=== PATIENT | male | born 1970 | race Caucasian/White ===

== ENCOUNTER 2018-01-23 04:19 | Emergency (ER) | payer SELFPAY ==
[~2018-01-23] VITALS: Ht 167.6 cm; Wt 113.4 kg
--- NOTE | 2018-01-23 04:19 | NUR ---
Patient BIBA BLS, transferred to bed 6. RN evaluating patient at bedside.
[2018-01-23 04:32] VITALS: BP 169/130
[2018-01-23] MEDS ORDERED: LORazepam 1 MG TAB PO ONE (04:35)
--- NOTE | 2018-01-23 04:40 | NUR ---
47Y/M BIBA C/O EPIGASTRIC PAIN AND SOB UPON AWAKENING. PT STATES HE DID EAT "SPICY FOOD" BEFORE BED. PT HAS BURNING EPIGASTRIC PAIN, NON RADIATING, 8/10. PT IS ANXIOUS ON ARRIVAL AND HX OF ANXIETY. RR ARE EVEN, UNLABORED, BL BS CLEAR THROUGHOUT, TACHYPNEA. PMH ANXIETY NKDA
--- NOTE | 2018-01-23 05:09 | NUR ---
XRAY AT BEDSIDE.
[2018-01-23 05:15] LABS: BARBITURATE, URINE NEG. ng/ml (NEG <=200); BENZODIAZEPINE, URINE NEG. ng/mL (NEG <=200); CANNABINOID, URINE NEG. ng/mL (NEG <=50); COCAINE, URINE NEG. ng/mL (NEG <=300); OPIATE, URINE NEG. ng/mL (NEG <=2000); PHENCYCLIDINE SCREEN,URINE NEG. ng/mL (NEG <=25)
[2018-01-23] MEDS ORDERED: ASPIRIN 325 MG TAB PO ONE (05:30)
[2018-01-23] MEDS ORDERED: NITROGLYCERIN 0.4 MG TAB SL ONE (05:30)
--- NOTE | 2018-01-23 05:48 | NUR ---
RT AT BEDSIDE FOR ABG.
[2018-01-23 05:59] LABS: BASOPHILS % (AUTO) 0.7 % (0.0-2.0); EOSINOPHILS # (AUTO) 0.1 K/uL (0-0.4); HEMATOCRIT 45.9 % (36-52); HEMOGLOBIN 16.6 g/dL (12.0-18.0); LYMPHOCYTES # (AUTO) 1.5 K/uL (2.0-11.5); LYMPHOCYTES % (AUTO) 29.6 % (20.5-51.1); MEAN CORPUSCULAR HEMOGLOBIN 32 pg (27-31); MEAN CORPUSCULAR HGB CONC 36 g/dL (33-37); MEAN CORPUSCULAR VOLUME 87.8 fL (80-94); MONOCYTES # (AUTO) 0.2 K/uL (0.8-1.0); MONOCYTES % (AUTO) 4.1 % (1.7-9.3); NEUTROPHILS # (AUTO) 3.3 K/uL (1.8-7.7); NEUTROPHILS % (AUTO) 64.6 % (42.2-75.2); PLATELET COUNT (AUTO) 201 K/uL (140-450); RED BLOOD CELL COUNT(AUTO) 5.22 MIL/uL (4.20-6.10); RED CELL DISTRIBUTION WIDTH 12.6 % (11.6-13.7); WHITE BLOOD COUNT (AUTO) 5.1 K/uL (4.8-10.8)
--- NOTE | 2018-01-23 06:30 | NUR ---
Dr. Aponte re-evaluating patient at bedside.
[2018-01-23] MEDS ORDERED: LORazepam 2 MG/ML VIAL IVP ONE (06:35)
[2018-01-23 06:41] LABS: ANION GAP 19.9 (8-16); CARBON DIOXIDE 22.1 mmol/L (21-32); CREATININE 1.5 mg/dL (0.7-1.3)
[2018-01-23 06:47] LABS: ALBUMIN 3.5 g/dL (3.4-5.0); TOTAL BILIRUBIN 0.6 mg/dL (0.0-1.0)
--- NOTE | 2018-01-23 06:50 | NUR ---
PT POSITIONED FOR COMFORT, STATES HE WANTS TO SLEEP, WILL CONTINUE TO MONITOR.
--- NOTE | 2018-01-23 07:10 | NUR ---
MINISTERIO GATES AWARE OF PT V.S, OK TO D/C.
--- NOTE | 2018-01-23 07:14 | NUR ---
Patient discharged with v/s stable. Written and verbal after care instructions given and explained. Patient verbalized understanding. Ambulatory with steady gait. All questions addressed prior to discharge. Advised to follow up with PMD.
[2018-01-23 07:15] VITALS: BP 132/88
== END 2018-01-23 07:14 | disposition home or self-care (01) ==
LOC: MED 04:19
DX: R06.00 Dyspnea, unspecified (principal); I10 Essential (primary) hypertension
CPT/HCPCS: 36415; 36600; 71045; 80053; 80305; 82550; 82553; 82803; 83690; 84484; 85025; 85379; 93005; 96374; 99285; J2060; Q0092

== ENCOUNTER 2018-05-08 20:59 | Inpatient (IN) | payer SELFPAY ==
[~2018-05-08] VITALS: Ht 170.2 cm; Wt 97.5 kg
[2018-05-08 21:04] VITALS: BP 174/125
[2018-05-08 21:51] LABS: BASOPHILS # (AUTO) 0.1 K/uL (0.00-0.22); BASOPHILS % (AUTO) 0.7 % (0.0-2.0); EOSINOPHILS # (AUTO) 0.1 K/uL (0-0.4); HEMATOCRIT 47.4 % (36-52); HEMOGLOBIN 16.2 g/dL (12.0-18.0); LYMPHOCYTES # (AUTO) 2.2 K/uL (2.0-11.5); LYMPHOCYTES % (AUTO) 30.1 % (20.5-51.1); MEAN CORPUSCULAR HEMOGLOBIN 31 pg (27-31); MEAN CORPUSCULAR HGB CONC 34 g/dL (33-37); MEAN CORPUSCULAR VOLUME 90.8 fL (80-94); MONOCYTES # (AUTO) 0.4 K/uL (0.8-1.0); MONOCYTES % (AUTO) 5.3 % (1.7-9.3); NEUTROPHILS # (AUTO) 4.7 K/uL (1.8-7.7); NEUTROPHILS % (AUTO) 62.9 % (42.2-75.2); PLATELET COUNT (AUTO) 199 K/uL (140-450); RED BLOOD CELL COUNT(AUTO) 5.22 MIL/uL (4.20-6.10); RED CELL DISTRIBUTION WIDTH 12.8 % (11.6-13.7); WHITE BLOOD COUNT (AUTO) 7.5 K/uL (4.8-10.8)
[2018-05-08 22:06] LABS: ANION GAP 11.7 (8-16); CARBON DIOXIDE 26.3 mmol/L (21-32); CREATININE 1.6 mg/dL (0.7-1.3); PROTHROMBIN TIME 9.3 secs (10.8-13.4)
[2018-05-08 22:11] LABS: ALBUMIN 3.5 g/dL (3.4-5.0); TOTAL BILIRUBIN 0.4 mg/dL (0.0-1.0)
--- NOTE | 2018-05-08 22:20 | NUR ---
PATIENT PRESENTS TO ED WITH HIGH BLOOD PRESSURE . PT STATES HE STARTING HAVING MILD CHEST TIGHTNESS YESTERDAY . DENIES N/V/D; SKIN IS PINK/WARM/DRY; AAOX4 WITH EVEN AND STEADY GAIT; LUNGS CLEAR BL; HR EVEN AND REGULAR; PT DENIES ANY FEVER, CP, SOB, OR COUGH AT THIS TIME; PATIENT STATES PAIN OF 5/10 AT THIS TIME; VSS; PATIENT POSITIONED FOR COMFORT; HOB ELEVATED; BEDRAILS UP X2; BED DOWN. ER MD MADE AWARE OF PT STATUS.
[2018-05-09] MEDS ORDERED: NITROGLYCERIN 0.4 MG TAB SL ONE (00:50)
[2018-05-09] MEDS ORDERED: LABETALOL 100 MG/20 ML VIAL IV ONE (00:50)
[2018-05-09] MEDS ORDERED: ASPIRIN 325 MG TAB PO ONE (00:50)
--- NOTE | 2018-05-09 01:30 | NUR ---
ASSUMED CARE OF PT AT THIS TIME. PT RESTING COMFORTABLY. NAD. VSS. PT AWAITS ADMISSION. WILL CONTINUE TO MONITOR.
[2018-05-09] MEDS ORDERED: NACL 0.9% 1,000 ML IV SCH (02:02)
[2018-05-09] MEDS ORDERED: LORazepam 2 MG/ML VIAL IM/IVP PRN (02:05)
[2018-05-09] MEDS ORDERED: ZOLPIDEM 5 MG TAB PO PRN (02:05)
[2018-05-09] MEDS ORDERED: ONDANSETRON 4 MG/2 ML VIAL IM/IVP PRN (02:05)
[2018-05-09] MEDS ORDERED: NITROGLYCERIN 2% 1 GM PKT TP PRN (02:05)
[2018-05-09] MEDS ORDERED: MORPHINE SULFATE 2 MG/ML SYR IVP PRN (02:05)
[2018-05-09] MEDS ORDERED: DOCUSATE SODIUM 100 MG GELCAP PO PRN (02:05)
[2018-05-09] MEDS ORDERED: HYDROcodone/APAP 5/325 MG 1 TAB TAB PO PRN (02:05)
[2018-05-09] MEDS ORDERED: ACETAMINOPHEN 325 MG TAB PO PRN (02:05)
--- NOTE | 2018-05-09 02:25 | NUR ---
Patient will be admitted to care of [facility]. Admitted to TELE. Will go to room 111A. Belongings list completed. Report to HERSON WINN.
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
[2018-05-09] MEDS ORDERED: INSULIN LISPRO SLIDING SCALE 100 UNITS/ML VIAL SUBQ PRN ×3 (02:50→02:57)
[2018-05-09] MEDS ORDERED: DEXTROSE 50% 50 ML SYR IVP PRN ×2 (02:50)
[2018-05-09 03:18] VITALS: BP 124/86
[2018-05-09 05:08] LABS: AMYLASE 53 U/L (25-115); CHOL/HDL RATIO 7.1 (1-4.5); HDL CHOLESTEROL 32 mg/dL (40-60); LIPASE 104 U/L (73-393); MAGNESIUM 1.6 mg/dL (1.8-2.4); PHOSPHORUS 2.9 mg/dL (2.5-4.9); THYROID STIMULATING HORMONE 1.81 uIU/mL (0.34-3.74); TRIGLYCERIDES 902 mg/dL (30-150)
--- NOTE | 2018-05-09 05:52 | NUR ---
NO COMPLAINTS DONE AT THIS TIME. SLEEPING WELL AFTER AMBIEN P.O. GIVEN REQUESTED. PT. ABLE TO USE CALL LIGHT FOR HELP. BLOOD SUGAR AT THIS TIME 153 MG/DL PER FINGERSTICK. SINUS RHYTHM IN TELEMETRY MONITORING.
[2018-05-09] MEDS ORDERED: MAGNESIUM OXIDE 400 MG TAB PO SCH (07:00)
--- NOTE | 2018-05-09 07:25 | NUR ---
RECEIVED PT REPORT COFFEE WEIGHER RN. PT IS AAOX4. NO S/S OF ACUTE DISTRESS NOTED. C/O CHEST PAIN 4/10. ON TELE MONITOR, SR. IVF SITE NOTED TO RFA, 20 G, INFUSING NS AT 120ML/HR, ASYMPTOMATIC. RIGHT EYE BLINDNESS. SKIN INTACT. NO EDEMA. BED IN LOWEST POSITION, CALL LIGHT WITHIN REACH.
--- NOTE | 2018-05-09 07:26 | NUR ---
ENDORSED TO THE NEXT RN FOR CONTINUITY OF CARE AWAKE AND ALERT. NO COMPLAINTS DONE.
[2018-05-09] MEDS ORDERED: BLOOD GLUCOSE MONITORING 1 DEV DEV FS SCH ×2 (07:30)
[2018-05-09 08:00] VITALS: BP 135/101
--- NOTE | 2018-05-09 08:35 | NUR ---
PATIENT HAS BEEN SCREENED AND CATEGORIZED MODERATE NUTRITION RISK. PATIENT WILL BE SEEN WITHIN 3-5 DAYS OF ADMISSION. 05/11/18 05/13/[address]
[2018-05-09] MEDS ORDERED: METOPROLOL 50 MG TAB PO SCH (09:00)
[2018-05-09] MEDS ORDERED: ASPIRIN 81 MG TAB.CHEW PO SCH (09:00)
[2018-05-09] MEDS ORDERED: METOPROLOL 25 MG TAB PO SCH (09:00)
[2018-05-09] MEDS ORDERED: LISINOPRIL 10 MG TAB PO SCH (09:00)
[2018-05-09] MEDS ORDERED: LISINOPRIL 5 MG TAB PO SCH (09:00)
[2018-05-09] MEDS ORDERED: IBUP-2213 PO (09:13)
[2018-05-09] MEDS ORDERED: LISI-420 PO (09:13)
[2018-05-09 09:20] LABS: PROTHROMBIN TIME 9.8 secs (10.8-13.4)
--- NOTE | 2018-05-09 10:20 | NUR ---
PT DISCHARGE PER MD ORDER. DISCHARGE INSTRUCTIONS AND MED TEACHING GIVEN. IV CATH DC'D, TIP INTACT, PRESSURE APPLIED. TELE REMOVED. PT IS IN STABLE CONDITION. PT LEFT WITH ALL HIS BELONGINGS. WALK WITH PT TO SINGH. Addendum: 05/09/18 at 1034 by Jason Phipps RN PT VERBALIZED UNDERSTANDING TO DISHCHARGE INSTRUCTIONS AND MED TEACHING. MADE PT AWARE OF SCHEDULED APPT WITH DR BARRETT.
[2018-05-09] MEDS ORDERED: SIMVASTATIN 40 MG TAB PO SCH (21:00)
[2018-05-10 08:22] LABS: T4 (THYROXINE) 5.9 ug/dL (4.5-12.0)
== END 2018-05-09 10:20 | disposition home or self-care (01) | DRG 205 ==
LOC: MED 20:59 → MTU 05-09 02:07
PROVIDERS: ADMIT General Practice; ATTEND General Practice
DX: M94.0 Chondrocostal junction syndrome [Tietze] (principal); N17.0 Acute kidney failure with tubular necrosis; I24.9 Acute ischemic heart disease, unspecified; K21.9 Gastro-esophageal reflux disease without esophagitis; I10 Essential (primary) hypertension; Z79.899 Other long term (current) drug therapy; Z79.82 Long term (current) use of aspirin; E78.5 Hyperlipidemia, unspecified; E66.01 Morbid (severe) obesity due to excess calories; Z68.33 Body mass index [BMI] 33.0-33.9, adult; E86.0 Dehydration; I16.0 Hypertensive urgency; Z91.19 Patient's noncompliance with other medical treatment and regimen
CPT/HCPCS: 36415; 71045; 80053; 81025; 82150; 82550; 82948; 83036; 83690; 83735; 83880; 84100; 84134; 84436; 84439; 84443; 84484; 85025; 85379; 85610; 85730; 87081; 93005; 96365; 99285; C1758; G0482; J1815; J3490; J7030

== ENCOUNTER 2018-06-14 20:44 | Inpatient (IN) | payer MEDICAID ==
[~2018-06-14] VITALS: Ht 170.2 cm; Wt 97.5 kg
[~2018-06-14 20:44] MED LIST: IBUP-2213 PO; LISI-420 PO
[2018-06-14 21:00] VITALS: BP 178/126
--- NOTE | 2018-06-14 21:11 | NUR ---
PT AMBULATED TO ED BED 4, MADE AWARE OF PT STATUS
[2018-06-14] MEDS ORDERED: ASPIRIN 325 MG TAB PO ONE (21:40)
[2018-06-14] MEDS ORDERED: NITROGLYCERIN 0.4 MG TAB SL ONE (21:40)
--- NOTE | 2018-06-14 22:00 | NUR ---
47 yo male presents to ed for c/o chest pain, pt denies pmh, denies allergies. pt describes pain as achiness/pressure that radiates to l arm. pt aaox4 ambulating to gurney and restroom. NSR on monitor, S1 s2 heard, no edema present. ASA 325 and nitro SL given. +2 pulses radial/pedal present. abdomen soft non distended. pt voiding; clear yellow urine noted. skin intact. R eye blind from previous surgery. will update ER MD, will continue to observe.
[2018-06-14 22:01] LABS: BASOPHILS % (AUTO) 0.5 % (0.0-2.0); EOSINOPHILS # (AUTO) 0.1 K/uL (0-0.4); EOSINOPHILS % (AUTO) 0.8 % (0.0-4.0); HEMATOCRIT 46.5 % (36-52); HEMOGLOBIN 15.9 g/dL (12.0-18.0); LYMPHOCYTES # (AUTO) 1.6 K/uL (2.0-11.5); LYMPHOCYTES % (AUTO) 22.6 % (20.5-51.1); MEAN CORPUSCULAR HEMOGLOBIN 31 pg (27-31); MEAN CORPUSCULAR HGB CONC 34 g/dL (33-37); MEAN CORPUSCULAR VOLUME 89.5 fL (80-94); MONOCYTES # (AUTO) 0.3 K/uL (0.8-1.0); MONOCYTES % (AUTO) 4.7 % (1.7-9.3); NEUTROPHILS # (AUTO) 5.2 K/uL (1.8-7.7); NEUTROPHILS % (AUTO) 71.4 % (42.2-75.2); PLATELET COUNT (AUTO) 202 K/uL (140-450); RED BLOOD CELL COUNT(AUTO) 5.19 MIL/uL (4.20-6.10); RED CELL DISTRIBUTION WIDTH 12.1 % (11.6-13.7); WHITE BLOOD COUNT (AUTO) 7.3 K/uL (4.8-10.8)
[2018-06-14 22:21] LABS: ALBUMIN 3.6 g/dL (3.4-5.0); ANION GAP 14.6 (8-16); CARBON DIOXIDE 24.4 mmol/L (21-32); CREATININE 1.5 mg/dL (0.7-1.3); TOTAL BILIRUBIN 0.5 mg/dL (0.0-1.0)
[2018-06-14 22:28] LABS: CREATINE KINASE MB 2.7 ng/mL (0-3.6)
[2018-06-14] MEDS ORDERED: ZOLPIDEM 5 MG TAB PO PRN (23:05)
[2018-06-14] MEDS ORDERED: DOCUSATE SODIUM 100 MG GELCAP PO PRN (23:05)
[2018-06-14] MEDS ORDERED: ACETAMINOPHEN 325 MG TAB PO PRN (23:05)
[2018-06-14] MEDS ORDERED: LORazepam 2 MG/ML VIAL IM/IVP PRN (23:05)
[2018-06-14] MEDS ORDERED: ONDANSETRON 4 MG/2 ML VIAL IM/IVP PRN (23:05)
[2018-06-14] MEDS ORDERED: NITROGLYCERIN 0.4 MG TAB SL PRN (23:10)
[2018-06-14] MEDS ORDERED: IBUPROFEN 600 MG TAB PO PRN (23:10)
--- NOTE | 2018-06-14 23:25 | NUR ---
Patient will be admitted to care of dr. villa. Admited to [facility]. Will go to room 106b. Belongings list completed. Report to wilder BAINS.
[2018-06-14 23:30] VITALS: BP 164/110
--- NOTE | 2018-06-14 23:30 | NUR ---
ADMITTED THIS 47 YEAR OLD MALE FROM ER PER JOSE WITH CC OF CHEST PAIN, AMBULATED TO BED WITH STEADY GAIT, VITAL SIGNS TAKEN, BP ELEVATED 164/110, WILL NOTIFY DR MURILLO, ASSESSMENT DONE, TOLERABLE CHEST PAIN AT THIS TIME 11/15, NO SOB NOTED, PLAN OF CARE DISCUSSES, SAFETY MEASURE IN PLACE, CALL LIGHT WITHIN REACH.
[2018-06-14 23:36] LABS: BARBITURATE, URINE NEG. ng/ml (NEG <=200); BENZODIAZEPINE, URINE NEG. ng/mL (NEG <=200); CANNABINOID, URINE NEG. ng/mL (NEG <=50); COCAINE, URINE NEG. ng/mL (NEG <=300); OPIATE, URINE NEG. ng/mL (NEG <=2000); PHENCYCLIDINE SCREEN,URINE NEG. ng/mL (NEG <=25)
[2018-06-14 23:47] LABS: APPEARANCE,URINE CLEAR (CLEAR); COLOR,URINE YELLOW (YELLOW)
[2018-06-14 23:49] LABS: BILIRUBIN,URINE NEGATIVE (NEGATIVE); BLOOD, URINE 3+ (NEGATIVE); LEUKOCYTE ESTERASE ,URINE NEGATIVE (NEGATIVE); NITRITE, URINE NEGATIVE (NEGATIVE); UGLUCOSE NEGATIVE (NEGATIVE)
[2018-06-14 23:50] LABS: HYALINE CASTS, URINE 0-10 /LPF (None Seen); RBC,URINE 11-20 (MOD) /HPF (0-5); WBC,URINE 0-5 (RARE) /HPF (0-5)
[2018-06-14 23:52] LABS: PROTHROMBIN TIME 9.9 secs (10.8-13.4)
[2018-06-15] LABS: MAGNESIUM 1.6 mg/dL (1.8-2.4); PHOSPHORUS 3.8 mg/dL (2.5-4.9); THYROID STIMULATING HORMONE 1.84 uIU/mL (0.34-3.74)
[2018-06-15] MEDS ORDERED: hydrALAZINE 20 MG/ML VIAL IVP SCH
[2018-06-15 00:20] VITALS: BP 146/102
[2018-06-15] MEDS: NACL 0.9% 1,000 ML IV SCH ×2 (00:23→16:47)
--- NOTE | 2018-06-15 00:30 | NUR ---
BP RECHECKED-146/102, DR MURILLO MADE AWARE OF LATEST BP, STATED HOLD THE DUE HYDRALAZINE IVP, SANDWICH PROVIDED, TOLERATED WELL, ALL NEEDS ATTENDED.
[2018-06-15] MEDS: HYDROcodone/APAP 5/325 MG 1 TAB TAB PO PRN ×2 (03:36→09:03)
--- NOTE | 2018-06-15 03:40 | NUR ---
VITAL SIGNS STABLE, COMPLAINING OF LEFT CHEST PAIN, MEDICATED FOR PAIN, MONITORED CLOSELY.
[2018-06-15 04:00] VITALS: BP 140/102
[2018-06-15] MEDS ORDERED: MAG SULF 2000 MG/WATER PREMIX 50 ML IV ONE (04:30)
--- NOTE | 2018-06-15 05:20 | NUR ---
PT AMBULATED TO BR WITH STEADY GAIT AND VOIDED FREELY.
[2018-06-15 06:45] LABS: BASOPHILS % (AUTO) 0.4 % (0.0-2.0); EOSINOPHILS # (AUTO) 0.1 K/uL (0-0.4); EOSINOPHILS % (AUTO) 1.9 % (0.0-4.0); HEMATOCRIT 46.3 % (36-52); HEMOGLOBIN 15.5 g/dL (12.0-18.0); LYMPHOCYTES % (AUTO) 29.9 % (20.5-51.1); MEAN CORPUSCULAR HEMOGLOBIN 30 pg (27-31); MEAN CORPUSCULAR HGB CONC 34 g/dL (33-37); MEAN CORPUSCULAR VOLUME 89.9 fL (80-94); MONOCYTES # (AUTO) 0.4 K/uL (0.8-1.0); MONOCYTES % (AUTO) 6.4 % (1.7-9.3); NEUTROPHILS # (AUTO) 4.2 K/uL (1.8-7.7); NEUTROPHILS % (AUTO) 61.4 % (42.2-75.2); PLATELET COUNT (AUTO) 193 K/uL (140-450); RED BLOOD CELL COUNT(AUTO) 5.14 MIL/uL (4.20-6.10); RED CELL DISTRIBUTION WIDTH 12.6 % (11.6-13.7); WHITE BLOOD COUNT (AUTO) 6.8 K/uL (4.8-10.8)
[2018-06-15] MEDS ORDERED: MAG SULF 2000 MG/WATER PREMIX 50 ML IV SCH (07:00)
--- NOTE | 2018-06-15 07:20 | NUR ---
PT AWAKE, BEDSIDE REPORT GIVEN TO RN OLGA FOR CONTINUITY OF CARE.
--- NOTE | 2018-06-15 07:21 | NUR ---
RECEIVED BEDSIDE REPORT FROM TRAINMASTER NURSE. PATIENT IS AWAKE, ALERT AND ORIENTEDX4. NO SIGNS OF DISTRESS ON 2L NC. TELE MONITOR IN PLACE. NO COMPLAINTS AT THIS TIME. PATIENT IS AMBULATORY. SKIN IS INTACT. IV ON L AC 18G INFUSING NS AT 60. CLEAN, DRY AND INTACT. BED IN LOW POSITION. CALL LIGHT WITHIN REACH.
[2018-06-15 07:28] LABS: CARBON DIOXIDE 27.1 mmol/L (21-32); CREATININE 1.3 mg/dL (0.7-1.3); POTASSIUM 4.1 mmol/L (3.5-5.1)
[2018-06-15 07:29] LABS: MAGNESIUM 2.2 mg/dL (1.8-2.4); PHOSPHORUS 4.5 mg/dL (2.5-4.9)
[2018-06-15 08:00] VITALS: BP 135/92
--- NOTE | 2018-06-15 08:23 | NUR ---
PATIENT HAS BEEN SCREENED AND CATEGORIZED MODERATE NUTRITION RISK. PATIENT WILL BE SEEN WITHIN 3-5 DAYS OF ADMISSION. 06/17/18 06/19/[address]
[2018-06-15] MEDS: ASPIRIN 81 MG TAB.CHEW PO SCH (08:49)
[2018-06-15] MEDS: LISINOPRIL 20 MG TAB PO SCH (08:50)
[2018-06-15] MEDS: METOPROLOL 25 MG TAB PO SCH ×2 (08:51→21:03)
--- NOTE | 2018-06-15 08:58 | NUR ---
PATIENT COMPLAINTS OF L CHEST PAIN. ADMINISTERED NITRO. PATIENT B/P BEFORE 136/86 HR 86, 5 MINS AFTER B/P 142/94 HR 85. PATIENT STATES IT DOES NOT HELP EVEN IN ER. WILL ADMINISTER OTHER PAIN MED
[2018-06-15] MEDS ORDERED: LISINOPRIL 5 MG TAB PO SCH (09:00)
--- NOTE | 2018-06-15 09:05 | NUR ---
ADMINISTERED PRN PAIN MED NORCO. PATIENT SAID THAT IS MORE EFFECTIVE THAN NITRO. WILL CONTINUE TO MONITOR THE PATIENT. BED IN LOW POSITION. CALL LIGHT WITHIN REACH
[2018-06-15] MEDS ORDERED: KETOROLAC 15 MG/ML VIAL IVP SCH (11:00)
--- NOTE | 2018-06-15 11:00 | NUR ---
PATIENT IS SLEEPING. NO SIGNS OF DISTRESS. WILL CONTINUE TO MONITOR
[2018-06-15 12:00] VITALS: BP 135/89
[2018-06-15] MEDS: CYCLOBENZAPRINE 10 MG TAB PO SCH ×2 (13:06→16:43)
--- NOTE | 2018-06-15 13:10 | NUR ---
ADMINISTERED MEDS. PATIENT TOLERATED WELL. WILL CONTINUE TO MONITOR
--- NOTE | 2018-06-15 15:12 | NUR ---
PATIENT RESTING IN BED. NO SIGNS OF DISTRESS. WILL CONTINUE TO MONITOR THE PATIENT.
[2018-06-15 16:00] VITALS: BP 117/80
--- NOTE | 2018-06-15 16:48 | NUR ---
ADMINISTERED MEDS. PATIENT TOLERATED WELL. WILL CONTINUE TO MONITOR THE PATIENT
[2018-06-15] MEDS: KETOROLAC 15 MG/ML VIAL IVP SCH (17:28)
--- NOTE | 2018-06-15 17:33 | NUR ---
ADMINISTERED PAIN MED. PATIENT TOLERATED WELL. WILL CONTINUE TO MONITOR THE PATIENT
--- NOTE | 2018-06-15 19:10 | NUR ---
gave bedside report to mine wedge sawyer nurse. patient endorsed in stable condition.
[2018-06-15 20:00] VITALS: BP 128/83
[2018-06-15] MEDS ORDERED: ATORVASTATIN 20 MG TAB PO SCH (21:00)
[2018-06-15] MEDS: MENTHOL/METHYL 10%-15% 114 GM TUBE TP SCH (21:03)
[2018-06-16] VITALS: BP 128/62
--- NOTE | 2018-06-16 | NUR ---
SEEN PATIENT ASLEEP BUT EASILY AROUSABLE. NO S/S OF DISTRESS NOTED. CALL LIGHT WITHIN REACH.
--- NOTE | 2018-06-16 02:00 | NUR ---
CHECKED PATIENT ASLEEP. NO S/S OF DISTRESS NOTED. WILL CONTINUE TO MONITOR.
[2018-06-16 04:00] VITALS: BP 123/92
--- NOTE | 2018-06-16 04:00 | NUR ---
SEEN PATIENT RESTING COMFORTABLE ON BED. CALL LIGHT WITHIN REACH. DENIES PAIN AT THIS TIME. WILL CONTINUE TO MONITOR.
[2018-06-16] MEDS: KETOROLAC 15 MG/ML VIAL IVP SCH ×3 (05:59→11:33)
[2018-06-16] MEDS ORDERED: IBUP-2213 PO (06:09)
[2018-06-16] MEDS ORDERED: PANT40EC PO (06:15)
[2018-06-16] MEDS ORDERED: ACET-2619 PO (06:18)
[2018-06-16] MEDS ORDERED: MENT90CR TP (06:20)
[2018-06-16 06:29] LABS: BASOPHILS % (AUTO) 0.4 % (0.0-2.0); EOSINOPHILS # (AUTO) 0.2 K/uL (0-0.4); EOSINOPHILS % (AUTO) 2.7 % (0.0-4.0); HEMATOCRIT 46.8 % (36-52); HEMOGLOBIN 15.5 g/dL (12.0-18.0); LYMPHOCYTES # (AUTO) 2.2 K/uL (2.0-11.5); LYMPHOCYTES % (AUTO) 30.7 % (20.5-51.1); MEAN CORPUSCULAR HEMOGLOBIN 30 pg (27-31); MEAN CORPUSCULAR HGB CONC 33 g/dL (33-37); MEAN CORPUSCULAR VOLUME 91.1 fL (80-94); MONOCYTES # (AUTO) 0.4 K/uL (0.8-1.0); MONOCYTES % (AUTO) 6.2 % (1.7-9.3); NEUTROPHILS # (AUTO) 4.4 K/uL (1.8-7.7); PLATELET COUNT (AUTO) 181 K/uL (140-450); RED BLOOD CELL COUNT(AUTO) 5.14 MIL/uL (4.20-6.10); RED CELL DISTRIBUTION WIDTH 12.5 % (11.6-13.7); WHITE BLOOD COUNT (AUTO) 7.3 K/uL (4.8-10.8)
[2018-06-16 06:46] LABS: ANION GAP 9.3 (8-16); CARBON DIOXIDE 27.4 mmol/L (21-32); CREATININE 1.4 mg/dL (0.7-1.3); POTASSIUM 4.7 mmol/L (3.5-5.1)
[2018-06-16] MEDS ORDERED: ATOR20TA40 PO (07:14)
[2018-06-16] MEDS ORDERED: METO25TA PO (07:14)
[2018-06-16] MEDS ORDERED: ASPI81CT95 PO ×2 (07:14→08:09)
[2018-06-16] MEDS ORDERED: CYCL10TA14 PO (07:14)
--- NOTE | 2018-06-16 07:17 | NUR ---
GAVE REPORT TO AM SHIFT NURSE AT BEDSIDE FOR CONTINUITY OF CARE. PATIENT IN STABLE CONDITION.
--- NOTE | 2018-06-16 07:18 | NUR ---
REPORT RECEIVED FROM ROUGE MILLER NURSE, PT RESTING QUIETLY IN NAD, RESP EVEN UNLABORED, SKIN WARM DRY COLOR WNL, DENIES PAIN OR DISCOMFORT, PLAN OF CARE REVIEWED, NO IMMEDIATE NEEDS AT THIS TIME, WILL CONTINUE TO MONITOR.
[2018-06-16 08:00] VITALS: BP 137/96
[2018-06-16] MEDS: CYCLOBENZAPRINE 10 MG TAB PO SCH (08:54)
[2018-06-16] MEDS: LISINOPRIL 20 MG TAB PO SCH (08:54)
[2018-06-16] MEDS: ASPIRIN 81 MG TAB.CHEW PO SCH (08:54)
[2018-06-16] MEDS: METOPROLOL 25 MG TAB PO SCH (08:55)
--- NOTE | 2018-06-16 08:59 | NUR ---
AM MEDS GIVEN, PT VINCENT WELL, PT DENIES CHEST PAIN, DENIES SOB, DENIES ANY IMMEDIATE NEEDS, PT AT BEDSIDE, WILL CONTINUE TO MONTIOR
[2018-06-16] MEDS: MENTHOL/METHYL 10%-15% 114 GM TUBE TP SCH (09:00)
[2018-06-16] MEDS: NACL 0.9% 1,000 ML IV SCH (09:01)
[2018-06-16 12:00] VITALS: BP 140/90
--- NOTE | 2018-06-16 12:00 | NUR ---
DC INSTRUCTION GIVEN AND EXPLAINED TO PT PT VERBALIZED FULL UNDERSTANDING, PT DENEIS CHEST PAIN DENIES SOB, PT UP AND AMBULATING WELL WITHOUT PROBLEM, IV DC'D, CATH TIP INTACT, BLEEDING CONTORLLED, WILL DC HOME WHEN DONE WITH LUNCH.
--- NOTE | 2018-06-16 12:30 | NUR ---
DC HOME, PT AMBULATED TO FRONT LOBBY WITH STEADY GAIT, ESCORTED BY RN.
== END 2018-06-16 12:30 | disposition home or self-care (01) | DRG 203 ==
LOC: MED 20:44 → MTU 23:04
PROVIDERS: ADMIT General Practice; ATTEND General Practice
DX: M94.0 Chondrocostal junction syndrome [Tietze] (principal); N17.0 Acute kidney failure with tubular necrosis; E66.01 Morbid (severe) obesity due to excess calories; I10 Essential (primary) hypertension; Z68.33 Body mass index [BMI] 33.0-33.9, adult; Z79.899 Other long term (current) drug therapy; I16.0 Hypertensive urgency; Z71.3 Dietary counseling and surveillance; R07.89 Other chest pain
CPT/HCPCS: 36415; 71045; 80048; 80053; 80305; 81001; 82550; 82553; 83036; 83690; 83735; 84100; 84134; 84443; 84484; 85025; 85610; 85730; 87081; 93005; 97535; 99285; J0360; J1644; J1885; J3475; J7030; Q0092

== ENCOUNTER 2018-06-19 21:10 | Emergency (ER) | payer MEDICAID ==
[~2018-06-19] VITALS: Ht 170.2 cm; Wt 113.4 kg
[~2018-06-19 21:10] MED LIST changes: +ACET-2619 PO; +ASPI81CT95 PO; +ATOR20TA40 PO; +CYCL10TA14 PO; -IBUP-2213 PO; +MENT90CR TP; +METO25TA PO; +PANT40EC PO
[2018-06-19 21:15] VITALS: BP 159/109
--- NOTE | 2018-06-19 21:15 | NUR ---
TO BED # 6AMBULATORY, REPORT GIVEN TO HANNAH BAINS.
--- NOTE | 2018-06-19 21:24 | NUR ---
PT TAKEN TO BED 6
--- NOTE | 2018-06-19 21:30 | NUR ---
PT IS A 47 Y/O MALE WHO PRESENTS TO THE ED C/O CHEST PAIN THAT STARTED TODAY. PT REPORTS 8/10 ACHING CHEST PAIN THAT RADIATES TO L ARM. PT DID NOT TAKE ANY RX FOR THE CHEST PAIN. PT DENIES COUGH, SOB, N/V/D. PT AWAKE AND ALERT, RR EVEN/UNLABORED. PT REPOSITIONED FOR COMFORT, BED IN LOWEST POSITION. ER MD DR. WICK NOTIFIED. WILL CONTINUE TO MONITOR.
--- NOTE | 2018-06-19 21:30 | NUR ---
EKG PERFORMED AT BEDSIDE. PT COVERED IN GOWN DURING PROCEDURE
--- NOTE | 2018-06-19 22:45 | NUR ---
Dr. Aponte evaluating patient at bedside.
[2018-06-19] MEDS ORDERED: cloNIDine 0.1 MG TAB PO ONE (22:50)
[2018-06-19 23:20] VITALS: BP 138/96
== END 2018-06-19 23:20 | disposition home or self-care (01) ==
LOC: MED 21:10
DX: R07.89 Other chest pain (principal); I10 Essential (primary) hypertension; Z79.899 Other long term (current) drug therapy
CPT/HCPCS: 36415; 71045; 84484; 93005; 99285; Q0092

== ENCOUNTER 2018-07-05 23:45 | Emergency (ER) | payer MEDICAID ==
[~2018-07-05] VITALS: Ht 167.6 cm; Wt 111.1 kg
[2018-07-05 23:46] VITALS: BP 173/134
[2018-07-06] MEDS ORDERED: ASPIRIN 81 MG TAB.CHEW PO ONE
[2018-07-06] MEDS ORDERED: MORPHINE SULFATE 2 MG/ML SYR IVP ONE
[2018-07-06] MEDS ORDERED: ENALAPRILAT 2.5 MG/2 ML VIAL IVP ONE
[2018-07-06] MEDS ORDERED: NITROGLYCERIN 2% 1 GM PKT TP ONE
[2018-07-06] MEDS ORDERED: ONDANSETRON 4 MG/2 ML VIAL IVP ONE
[2018-07-06 00:22] LABS: BASOPHILS % (AUTO) 0.5 % (0.0-2.0); EOSINOPHILS # (AUTO) 0.2 K/uL (0-0.4); EOSINOPHILS % (AUTO) 2.4 % (0.0-4.0); HEMATOCRIT 47.5 % (36-52); LYMPHOCYTES # (AUTO) 2.6 K/uL (2.0-11.5); LYMPHOCYTES % (AUTO) 31.7 % (20.5-51.1); MEAN CORPUSCULAR HEMOGLOBIN 30 pg (27-31); MEAN CORPUSCULAR HGB CONC 34 g/dL (33-37); MEAN CORPUSCULAR VOLUME 89.3 fL (80-94); MONOCYTES # (AUTO) 0.4 K/uL (0.8-1.0); MONOCYTES % (AUTO) 5.1 % (1.7-9.3); NEUTROPHILS # (AUTO) 4.9 K/uL (1.8-7.7); NEUTROPHILS % (AUTO) 60.3 % (42.2-75.2); PLATELET COUNT (AUTO) 188 K/uL (140-450); RED BLOOD CELL COUNT(AUTO) 5.32 MIL/uL (4.20-6.10); RED CELL DISTRIBUTION WIDTH 12.5 % (11.6-13.7); WHITE BLOOD COUNT (AUTO) 8.1 K/uL (4.8-10.8)
[2018-07-06 00:34] LABS: ANION GAP 15.2 (8-16); CARBON DIOXIDE 25.2 mmol/L (21-32); CREATININE 1.5 mg/dL (0.7-1.3); POTASSIUM 4.4 mmol/L (3.5-5.1)
[2018-07-06 00:40] LABS: ALBUMIN 3.6 g/dL (3.4-5.0); TOTAL BILIRUBIN 0.4 mg/dL (0.0-1.0)
[2018-07-06] MEDS ORDERED: MORPHINE SULFATE 4 MG/ML SYR IVP ONE (00:50)
[2018-07-06 04:53] VITALS: BP 153/102
== END 2018-07-06 04:53 | disposition home or self-care (01) ==
LOC: MED 23:45
DX: I16.0 Hypertensive urgency (principal); R51 Headache; K21.9 Gastro-esophageal reflux disease without esophagitis; E78.5 Hyperlipidemia, unspecified; H54.61 Unqualified visual loss, right eye, normal vision left eye; Z79.899 Other long term (current) drug therapy
CPT/HCPCS: 36415; 71045; 80053; 84484; 85025; 93005; 96374; 96375; 96376; 99284; J2270; J2405; J3490; 99283

== ENCOUNTER 2018-08-18 23:31 | Emergency (ER) | payer SELFPAY ==
[~2018-08-18] VITALS: Ht 170.2 cm; Wt 108.4 kg
[2018-08-18 23:33] VITALS: BP 203/125
--- NOTE | 2018-08-18 23:33 | NUR ---
TO BED # 9 AMBULATORY, REPORT GIVEN TO CLIVE BAINS
--- NOTE | 2018-08-18 23:40 | NUR ---
47/M PRESENTS TO ED, C/O 8/10 L SIDED CP, RADIATING TO L SHOULDER, X1 HR. PT DENIES FEVER, SOB, N/V. DENIES STIMULANT USE, ALCOHOL OR DRUG USE. PT AOX4, GCS 15, RR EVEN AND UNLABORED. LUNG SOUNDS CLEAR BL. BP ELEVATED. PT STATED THAT HE RAN OUT OF RX, PT DOES NOT KNOW NAME. CONNECTED TO MONITOR, ER MD MADE AWARE. HX HTN, GERD, HLD, TRAUMATIC BLIND R EYE, FACIAL SURGERY
[2018-08-18] MEDS ORDERED: ASPIRIN 81 MG TAB.CHEW PO ONE (23:50)
[2018-08-18] MEDS ORDERED: METOPROLOL 5 MG/5 ML VIAL IVP ONE (23:50)
[2018-08-19 00:13] LABS: BASOPHILS # (AUTO) 0.1 K/uL (0.00-0.22); BASOPHILS % (AUTO) 0.7 % (0.0-2.0); EOSINOPHILS # (AUTO) 0.1 K/uL (0-0.4); EOSINOPHILS % (AUTO) 1.5 % (0.0-4.0); HEMATOCRIT 48.4 % (36-52); LYMPHOCYTES # (AUTO) 3.1 K/uL (2.0-11.5); LYMPHOCYTES % (AUTO) 42.1 % (20.5-51.1); MEAN CORPUSCULAR HEMOGLOBIN 30 pg (27-31); MEAN CORPUSCULAR HGB CONC 33 g/dL (33-37); MEAN CORPUSCULAR VOLUME 89.7 fL (80-94); MONOCYTES # (AUTO) 0.5 K/uL (0.8-1.0); MONOCYTES % (AUTO) 7.4 % (1.7-9.3); NEUTROPHILS # (AUTO) 3.6 K/uL (1.8-7.7); NEUTROPHILS % (AUTO) 48.3 % (42.2-75.2); PLATELET COUNT (AUTO) 199 K/uL (140-450); RED BLOOD CELL COUNT(AUTO) 5.39 MIL/uL (4.20-6.10); RED CELL DISTRIBUTION WIDTH 12.3 % (11.6-13.7); WHITE BLOOD COUNT (AUTO) 7.4 K/uL (4.8-10.8)
[2018-08-19 00:26] LABS: ANION GAP 10.6 (8-16); CARBON DIOXIDE 28.1 mmol/L (21-32); CREATININE 1.3 mg/dL (0.7-1.3); POTASSIUM 3.7 mmol/L (3.5-5.1)
[2018-08-19 00:32] LABS: TOTAL BILIRUBIN 0.4 mg/dL (0.0-1.0)
[2018-08-19 00:33] LABS: ALBUMIN 3.5 g/dL (3.4-5.0)
[2018-08-19] MEDS ORDERED: KETOROLAC 30 MG/ML VIAL IVP ONE (01:45)
[2018-08-19 02:15] VITALS: BP 135/84
--- NOTE | 2018-08-19 02:15 | NUR ---
Patient discharged with v/s stable. Written and verbal after care instructions given and explained. Patient alert, oriented and verbalized understanding of instructions. Ambulatory with steady gait. All questions addressed prior to discharge. ID band removed. Patient advised to follow up with PMD. Rx of Motrin and Lisinopril given. Patient educated on indication of medication including possible reaction and side effects. Opportunity to ask questions provided and answered.
== END 2018-08-19 02:15 | disposition home or self-care (01) ==
LOC: MED 23:31
DX: R07.89 Other chest pain (principal); I10 Essential (primary) hypertension; K21.9 Gastro-esophageal reflux disease without esophagitis; H54.61 Unqualified visual loss, right eye, normal vision left eye; Z79.899 Other long term (current) drug therapy
CPT/HCPCS: 36415; 71045; 80053; 83880; 84484; 85025; 96374; 96375; 99283; J1885; J3490; Q0092

== ENCOUNTER 2018-08-29 01:00 | Emergency (ER) | payer SELFPAY ==
[~2018-08-29] VITALS: Ht 170.2 cm; Wt 113.4 kg
[2018-08-29 01:00] VITALS: BP 176/104
--- NOTE | 2018-08-29 01:06 | NUR ---
PT PRESENTS TO ED WITH INCREASED BLOOD PRESSURE. PT STATES WAKING UP WITH SOB AND DYSPNEA. UPON ED ARRIVAL PT STATES NO SOB AND NO PAIN. HE FEELS IF THOUGH BLOOD PRESSURE IS HIGH. BP UPON ARRIVAL 176/112. A&OX4. NO VISIUAL DISTURBANCE, NO BLANKENSHIP, NO N/V. POSITIONED IN BED WITH HOB ELEVATED. ER MD AWARE. CONTINUE TO MONITOR.
--- NOTE | 2018-08-29 01:06 | NUR ---
PT TAKEN TO BED 9 Addendum: 08/29/18 at 0116 by LULY PT TAKEN TO BED 7
--- NOTE | 2018-08-29 03:15 | NUR ---
Dr. Parson evaluating patient at bedside.
[2018-08-29 03:27] VITALS: BP 147/77
--- NOTE | 2018-08-29 03:27 | NUR ---
Patient discharged with v/s stable. Written and verbal after care instructions given and explained. Patient alert, oriented and verbalized understanding of instructions. Ambulatory with steady gait. All questions addressed prior to discharge. ID band removed. Patient advised to follow up with PMD. Rx of Lisinopril given. Patient educated on indication of medication including possible reaction and side effects. Opportunity to ask questions provided and answered.
== END 2018-08-29 03:27 | disposition home or self-care (01) ==
LOC: MED 01:00
DX: I10 Essential (primary) hypertension (principal); K21.9 Gastro-esophageal reflux disease without esophagitis; Z79.899 Other long term (current) drug therapy
CPT/HCPCS: 99283

== ENCOUNTER 2018-09-16 19:27 | Emergency (ER) | payer SELFPAY ==
[~2018-09-16] VITALS: Ht 170.2 cm; Wt 104.3 kg
[2018-09-16 19:35] VITALS: BP 178/110
--- NOTE | 2018-09-16 19:35 | NUR ---
TO BED # 5 AMBULATORY, REPORT GIVEN TO DANIEL BAINS
--- NOTE | 2018-09-16 19:35 | NUR ---
ASSUMED CARE OF PT AT THIS TIME. C/O ELEVATED BP W/ LEFT SHOULDER PAIN X 12 HOURS. AAOX4 WITH EVEN AND STEADY GAIT; LUNGS CLEAR BL; HR EVEN AND REGULAR; PATIENT STATES PAIN OF 5/10; VSS; PATIENT POSITIONED FOR COMFORT; HOB ELEVATED; BEDRAILS UP X2; BED DOWN. ER MD MADE AWARE OF PT STATUS. WILL CONTINUE TO MONITOR.
--- NOTE | 2018-09-16 20:34 | NUR ---
PATIENT LEFT WITHOUT BEING SEEN BY DR. WELLS. NO FURTHER CARE PROVIDED FOR PATIENT.
== END 2018-09-16 20:34 | disposition left against medical advice (07) ==
LOC: MED 19:27
DX: Z53.21 Procedure and treatment not carried out due to patient leaving prior to being seen by health care provider (principal)

== ENCOUNTER 2018-11-30 01:40 | Emergency (ER) | payer SELFPAY ==
[~2018-11-30] VITALS: Ht 170.2 cm; Wt 106.6 kg
[2018-11-30 01:48] VITALS: BP 145/90
--- NOTE | 2018-11-30 01:49 | NUR ---
TO BED # 09 AMBULATORY
--- NOTE | 2018-11-30 01:55 | NUR ---
48 Y/O M PRESENTS W/C/O RT FLANK PAIN, H/A, N/V STARTED TODAY. SKIN IS PINK/WARM/DRY; AAOX4, PERRL, WITH EVEN AND STEADY GAIT; LUNGS CLEAR BL, BREATHING UNLABORED; HR EVEN AND REGULAR, BL PERIPHERAL PULSES PRESENT; BS ACTIVE X4, NO TENDERNESS TO PALPATION, NO HEPATOSPLENOMEGALLY PALPATED, RESONANT TO PERCUSSION; PT DENIES ANY FEVER, CP, SOB, OR COUGH AT THIS TIME; PT STATES 10/10 PAIN AT THIS TIME; VSS; PATIENT POSITIONED FOR COMFORT; HOB ELEVATED; BEDRAILS UP X2; BED DOWN.
[2018-11-30] MEDS ORDERED: NACL 0.9% 500 ML IV ONE (02:14)
[2018-11-30] MEDS ORDERED: KETOROLAC 30 MG/ML VIAL IVP ONE (02:15)
[2018-11-30] MEDS ORDERED: ONDANSETRON 4 MG/2 ML VIAL IVP ONE (02:15)
[2018-11-30 02:26] LABS: BASOPHILS % (AUTO) 0.5 % (0.0-2.0); EOSINOPHILS # (AUTO) 0.2 K/uL (0-0.4); EOSINOPHILS % (AUTO) 3.5 % (0.0-4.0); HEMATOCRIT 46.8 % (36-52); HEMOGLOBIN 15.9 g/dL (12.0-18.0); LYMPHOCYTES # (AUTO) 2.5 K/uL (2.0-11.5); LYMPHOCYTES % (AUTO) 38.7 % (20.5-51.1); MEAN CORPUSCULAR HEMOGLOBIN 30 pg (27-31); MEAN CORPUSCULAR HGB CONC 34 g/dL (33-37); MEAN CORPUSCULAR VOLUME 89.2 fL (80-94); MONOCYTES # (AUTO) 0.4 K/uL (0.8-1.0); MONOCYTES % (AUTO) 6.6 % (1.7-9.3); NEUTROPHILS # (AUTO) 3.2 K/uL (1.8-7.7); NEUTROPHILS % (AUTO) 50.7 % (42.2-75.2); PLATELET COUNT (AUTO) 216 K/uL (140-450); RED BLOOD CELL COUNT(AUTO) 5.25 MIL/uL (4.20-6.10); RED CELL DISTRIBUTION WIDTH 12.8 % (11.6-13.7); WHITE BLOOD COUNT (AUTO) 6.4 K/uL (4.8-10.8)
--- NOTE | 2018-11-30 02:35 | NUR ---
PT TAKEN TO CT
[2018-11-30 02:36] LABS: ANION GAP 14.6 (8-16); CARBON DIOXIDE 23.3 mmol/L (21-32); CREATININE 1.6 mg/dL (0.7-1.3); POTASSIUM 3.9 mmol/L (3.5-5.1)
[2018-11-30 02:42] LABS: ALBUMIN 3.5 g/dL (3.4-5.0); TOTAL BILIRUBIN 0.5 mg/dL (0.0-1.0)
--- NOTE | 2018-11-30 02:47 | NUR ---
PT BACK FROM CT
[2018-11-30 03:45] VITALS: BP 133/91
--- NOTE | 2018-11-30 03:45 | NUR ---
Patient discharged with v/s stable. Written and verbal after care instructions given and explained. Patient alert, oriented and verbalized understanding of instructions. Ambulatory with steady gait. All questions addressed prior to discharge. ID band removed. Patient advised to follow up with PMD. Rx of LACTULOSE, TYLENOL, AND MINERAL OIL given. Patient educated on indication of medication including possible reaction and side effects. Opportunity to ask questions provided and answered.
== END 2018-11-30 03:45 | disposition home or self-care (01) ==
LOC: MED 01:40
DX: K59.00 Constipation, unspecified (principal); H54.40 Blindness, one eye, unspecified eye; R11.2 Nausea with vomiting, unspecified; K21.9 Gastro-esophageal reflux disease without esophagitis; I10 Essential (primary) hypertension; Z79.1 Long term (current) use of non-steroidal anti-inflammatories (NSAID); Z79.899 Other long term (current) drug therapy
CPT/HCPCS: 36415; 74176; 80053; 85025; 96361; 96374; 96375; 99284; J1885; J2405; J7030

== ENCOUNTER 2019-05-07 03:00 | Emergency (ER) | payer SELFPAY ==
[~2019-05-07] VITALS: Ht 170.2 cm; Wt 97.5 kg
[2019-05-07 03:05] VITALS: BP 160/105
[2019-05-07] MEDS ORDERED: cloNIDine 0.1 MG TAB PO ONE (03:15)
[2019-05-07 03:45] VITALS: BP 135/96
== END 2019-05-07 03:45 | disposition home or self-care (01) ==
LOC: MED 03:00
DX: I10 Essential (primary) hypertension (principal); K21.9 Gastro-esophageal reflux disease without esophagitis; Z79.899 Other long term (current) drug therapy; Z79.1 Long term (current) use of non-steroidal anti-inflammatories (NSAID)
CPT/HCPCS: 99283

== ENCOUNTER 2019-06-05 22:20 | Inpatient (IN) | payer MEDICAID ==
[~2019-06-05] VITALS: Ht 170.2 cm; Wt 104.3 kg
[2019-06-05 22:25] VITALS: BP 139/92
--- NOTE | 2019-06-05 22:28 | NUR ---
TO LOBBY A/W BED AMBULATORY
--- NOTE | 2019-06-05 23:01 | NUR ---
PT TAKEN TO BED 8
--- NOTE | 2019-06-05 23:15 | NUR ---
48 YO M BIB SELF PRESENTS TO ED C/O 03/17 LEFT SHOULDER PAIN INTO LEFT PECTORAL CHEST OFF AND ON X 5 MONTHS. PT STATES HE WAS SEEN AT [place] X 2 WEEKS AGO AND HAS SEEN HIS PMD FOR SAME COMPLAINT. PT STATES HE WAS GIVEN NO EXPLANATION GIVEN FOR PAIN BUT TOLD HIS "HEART IS GOOD". PT STATES PAIN EXACERBATED WITH MOVEMENT OF LEFT ARM. DENIES RECENT TRAUMA/INJURY. PT ALSO C/O 02/14 BLANKENSHIP X SINCE YESTERDAY. DENIES TRYING MEDICATION FOR PAIN RELIEF. PT STATES HE IS COMPLIANT WITH BP MEDS. DENIES BLURRED VISION, DIZZINESS, NV. -- PT AWAKE, A/O X 4. CALM, COOPERATIVE. ANSWERS QUESTIONS WITHOUT DIFFICULTY. BEHAVIOR APPROPRIATE. -- SKIN PINK, WARM, DRY. BREATHING EVEN, UNLABORED. PMH-- HTN
--- NOTE | 2019-06-05 23:51 | NUR ---
Dr. Arceo examining patient.
[2019-06-06] MEDS ORDERED: NITROGLYCERIN 2% 1 GM PKT TP ONE
[2019-06-06] MEDS ORDERED: ASPIRIN 325 MG TAB PO ONE
[2019-06-06] MEDS ORDERED: MORPHINE SULFATE 4 MG/ML SYR IVP ONE
--- NOTE | 2019-06-06 00:11 | NUR ---
X-Ray at bedside.
[2019-06-06] MEDS ORDERED: HYDROcodone/APAP 7.5/325 MG 1 TAB PO PRN (00:15)
[2019-06-06] MEDS ORDERED: ACETAMINOPHEN 325 MG TAB PO PRN (00:15)
[2019-06-06] MEDS ORDERED: KETOROLAC 30 MG/ML VIAL IVP PRN (00:15)
[2019-06-06] MEDS ORDERED: ONDANSETRON 4 MG/2 ML VIAL IM/IVP PRN (00:15)
[2019-06-06] MEDS ORDERED: MORPHINE SULFATE 2 MG/ML SYR IVP PRN (00:15)
[2019-06-06 00:39] LABS: CARBON DIOXIDE 25.3 mmol/L (21-32); CREATININE 1.5 mg/dL (0.7-1.3); POTASSIUM 4.3 mmol/L (3.5-5.1)
[2019-06-06 00:43] LABS: CHOL/HDL RATIO 6.9 (1-4.5)
[2019-06-06 00:45] LABS: ALBUMIN 3.6 g/dL (3.4-5.0); TOTAL BILIRUBIN 0.6 mg/dL (0.0-1.0)
[2019-06-06 00:52] LABS: CREATINE KINASE MB 1.7 ng/mL (0-3.6)
--- NOTE | 2019-06-06 01:15 | NUR ---
PT RECEIVED 4MG IVP MORPHINE FOR 8/10 SHOULDER PAIN. PULLED 2 MG MORPHINE VIALS X 2 FROM [employer].
--- NOTE | 2019-06-06 01:25 | NUR ---
Received patient from ED via [employer]. Bedside report from ED nurse, Lorena. Patient is awake and alert. AOx4. Patient is ambulatory. No SOB or distress noted. On room air. IV access on Left AC gauge 18. MRSA swab done and sent to lab. On telemetry monitoring. Bed put in low position. Board updated. Call light within reach. Admission vital signs BP 142/93, pulse 88, temperature 98.3, respiratory rate 19, o2 sat 95%.
--- NOTE | 2019-06-06 01:25 | NUR ---
Patient will be admitted to care of Dr. Mayorga. Admited to Tele. Will go to room 120A. Belongings list completed. Report to HERSON Mcneil/HERSON Urbina. Addendum: 06/06/19 at 0332 by [facility] PT REPORTS 0/10 PAIN.
--- NOTE | 2019-06-06 01:27 | NUR ---
Patient put on NPO for scheduled ultrasound at 0800 for RUQ abdominal pain.
[2019-06-06 01:37] LABS: PROTHROMBIN TIME 9.3 secs (10.8-13.4)
[2019-06-06 01:46] LABS: MAGNESIUM 1.9 mg/dL (1.8-2.4); PHOSPHORUS 4.3 mg/dL (2.5-4.9); THYROID STIMULATING HORMONE 2.34 uIU/mL (0.34-3.74)
[2019-06-06] MEDS: NACL 0.9% 1,000 ML IV SCH ×2 (01:57→18:14)
[2019-06-06 03:29] LABS: BASOPHILS % (AUTO) 0.6 % (0.0-2.0); EOSINOPHILS # (AUTO) 0.4 K/uL (0-0.4); EOSINOPHILS % (AUTO) 5.9 % (0.0-4.0); HEMATOCRIT 46.5 % (36-52); LYMPHOCYTES # (AUTO) 2.6 K/uL (2.0-11.5); LYMPHOCYTES % (AUTO) 38.7 % (20.5-51.1); MEAN CORPUSCULAR HEMOGLOBIN 32 pg (27-31); MEAN CORPUSCULAR HGB CONC 35 g/dL (33-37); MONOCYTES # (AUTO) 0.5 K/uL (0.8-1.0); MONOCYTES % (AUTO) 7.1 % (1.7-9.3); NEUTROPHILS # (AUTO) 3.2 K/uL (1.8-7.7); NEUTROPHILS % (AUTO) 47.7 % (42.2-75.2); PLATELET COUNT (AUTO) 211 K/uL (140-450); RED CELL DISTRIBUTION WIDTH 12.5 % (11.6-13.7); WHITE BLOOD COUNT (AUTO) 6.7 K/uL (4.8-10.8)
--- NOTE | 2019-06-06 03:32 | NUR ---
Rounds done. Pt sleeping comfortably. Visible chest rise and fall noted. Will continue to monitor.
--- NOTE | 2019-06-06 03:50 | NUR ---
Patient signed consent for Authorization for Use or Disclosure of Health Information form. Faxed to [facility].
--- NOTE | 2019-06-06 04:00 | NUR ---
Vital signs taken at this time. No distress noted. Pt states pain 5/10 but is tolerable. Refuses PRN pain medication at this time. Will continue to monitor pt.
[2019-06-06 04:35] VITALS: BP 133/82
--- NOTE | 2019-06-06 06:26 | NUR ---
Pt in stable condition. Sleeping comfortably in bed, no SOB or distress noted. Will endorse to AM shift RN for continuity of care.
--- NOTE | 2019-06-06 07:10 | NUR ---
RECEIVED PT FROM NIGHT NURSE. PT ASLEEP BUT AROUSABLE TO SPEECH. AAOX4. RESPIRATIONS EVEN AND UNLABORED ON ROOM AIR. CLEAR BREATH SOUNDS. IV IN PLACE L AC 18G INFUSING PER ORDER, PATENT ASYMPTOMATIC AND INTACT. SKIN INTACT. SAFETY MEASURES IN PLACE. BED IN LOW POSITION. CALL LIGHT WITHIN REACH. WILL CONTINUE TO MONITOR.
[2019-06-06 07:42] LABS: BASOPHILS % (AUTO) 0.5 % (0.0-2.0); EOSINOPHILS # (AUTO) 0.3 K/uL (0-0.4); EOSINOPHILS % (AUTO) 4.9 % (0.0-4.0); HEMATOCRIT 44.5 % (36-52); LYMPHOCYTES # (AUTO) 1.8 K/uL (2.0-11.5); LYMPHOCYTES % (AUTO) 33.4 % (20.5-51.1); MEAN CORPUSCULAR HEMOGLOBIN 31 pg (27-31); MEAN CORPUSCULAR HGB CONC 34 g/dL (33-37); MEAN CORPUSCULAR VOLUME 92.9 fL (80-94); MONOCYTES # (AUTO) 0.4 K/uL (0.8-1.0); MONOCYTES % (AUTO) 7.3 % (1.7-9.3); NEUTROPHILS # (AUTO) 2.8 K/uL (1.8-7.7); NEUTROPHILS % (AUTO) 53.9 % (42.2-75.2); PLATELET COUNT (AUTO) 188 K/uL (140-450); RED BLOOD CELL COUNT(AUTO) 4.79 MIL/uL (4.20-6.10); RED CELL DISTRIBUTION WIDTH 12.6 % (11.6-13.7); WHITE BLOOD COUNT (AUTO) 5.3 K/uL (4.8-10.8)
[2019-06-06 08:00] VITALS: BP 119/80
[2019-06-06 08:21] LABS: ANION GAP 13.8 (8-16); CARBON DIOXIDE 25.5 mmol/L (21-32); POTASSIUM 4.3 mmol/L (3.5-5.1)
--- NOTE | 2019-06-06 08:21 | NUR ---
PATIENT HAS BEEN SCREENED AND CATEGORIZED MODERATE NUTRITION RISK. PATIENT WILL BE SEEN WITHIN 3-5 DAYS OF ADMISSION. 06/08/19 06/10/[address]
[2019-06-06 08:22] LABS: CREATININE 1.5 mg/dL (0.7-1.3)
[2019-06-06] MEDS: ASPIRIN 81 MG TAB.CHEW PO SCH (08:40)
[2019-06-06] MEDS: NIACIN 500 MG TAB PO SCH (08:40)
[2019-06-06] MEDS: LACTOBACILLUS RHAMNOSUS GG 1 EACH CAP PO SCH (08:40)
[2019-06-06] MEDS: PANTOPRAZOLE 40 MG TABEC PO SCH (08:41)
[2019-06-06] MEDS: LISINOPRIL 20 MG TAB PO SCH (08:41)
[2019-06-06] MEDS: METOPROLOL 25 MG TAB PO SCH ×2 (08:41→20:27)
--- NOTE | 2019-06-06 08:46 | NUR ---
MEDICATIONS ADMINISTERED PER ORDER. PT TOLERATED WELL. NO DISTRESS NOTED. WILL CONTINUE TO MONITOR.
--- NOTE | 2019-06-06 10:48 | NUR ---
PT LYING IN BED SLEEPING. NO DISTRESS NOTED. WILL CONTINUE TO MONITOR.
[2019-06-06 11:25] LABS: APPEARANCE,URINE CLEAR (CLEAR); BILIRUBIN,URINE NEGATIVE (NEGATIVE); BLOOD, URINE TRACE-I (NEGATIVE); COLOR,URINE YELLOW (YELLOW); LEUKOCYTE ESTERASE ,URINE NEGATIVE (NEGATIVE); NITRITE, URINE NEGATIVE (NEGATIVE); UGLUCOSE NEGATIVE (NEGATIVE)
[2019-06-06 11:32] LABS: BARBITURATE, URINE NEG. ng/ml (NEG <=200); BENZODIAZEPINE, URINE NEG. ng/mL (NEG <=200); CANNABINOID, URINE NEG. ng/mL (NEG <=50); COCAINE, URINE NEG. ng/mL (NEG <=300); OPIATE, URINE POS. ng/mL (NEG <=2000); PHENCYCLIDINE SCREEN,URINE NEG. ng/mL (NEG <=25)
[2019-06-06 11:40] LABS: WBC,URINE 0-5 /HPF (0-5)
[2019-06-06 12:00] VITALS: BP 123/77
--- NOTE | 2019-06-06 13:34 | NUR ---
PT IN SUPINE POSITION, SLEEPING AT THIS TIME. NO DISTRESS NOTED. SAFETY MEASURES IN PLACE. WILL CONTINUE TO MONITOR.
[2019-06-06] MEDS: KETOROLAC 15 MG/ML VIAL IVP PRN ×2 (14:31→20:27)
[2019-06-06] MEDS ORDERED: INSULIN LISPRO SLIDING SCALE 100 UNITS/ML VIAL SUBQ PRN (14:35)
[2019-06-06] MEDS ORDERED: GLUCAGON 1 MG VIAL IVP PRN (14:35)
[2019-06-06] MEDS ORDERED: DEXTROSE 50% 50 ML SYR IVP PRN (14:35)
[2019-06-06 16:00] VITALS: BP 102/76
[2019-06-06] MEDS: BLOOD GLUCOSE MONITORING 1 DEV DEV FS SCH ×2 (16:43→20:34)
--- NOTE | 2019-06-06 16:44 | NUR ---
BLOOD GLUCOSE MONITORED AT THIS TIME. NO COVERAGE NEEDED. PT AWAKE IN BED NO DISTRESS NOTED. DENIES PAIN AT THIS TIME.
--- NOTE | 2019-06-06 19:11 | NUR ---
REPORT GIVEN TO NIGHT NURSE FOR CONTINUITY OF CARE.
--- NOTE | 2019-06-06 19:12 | NUR ---
REPORT RECEIVED FROM AM NURSE AT BEDSIDE. PT IN STABLE CONDITION. AAOX4. INTRODUCED SELF TO PT. BOARD UPDATED. PT HAS COMPLAINTS OF SHOULDER PAIN. WILL MEDICATE. NO SOB. AFEBRILE. PT IS AMBULATORY. PT HAS RIGHT EYE BLINDNESS. IV SITE L AC 18G RUNNING NS@60ML/HR PATENT AND INTACT. SKIN WARM, DRY, AND INTACT WITH NO OPEN WOUNDS. BED LOCKED IN LOW POSITION. CALL SERRANO WITHIN REACH. SAFETY PRECAUTION IN PLACE. ALL NEEDS MET AT THIS TIME.
[2019-06-06 20:00] VITALS: BP 114/75
--- NOTE | 2019-06-06 20:27 | NUR ---
LOPRESSOR GIVEN PO. HEPARIN GIVEN SUBQ. TORADOL GIVEN FOR 6/10 SHOULDER PAIN. BS 93. NO INSULIN COVERAGE NEEDED. PT TOLERATED WELL.
--- NOTE | 2019-06-06 21:40 | NUR ---
PT IN BED WATCHING TV. NO S/S OF DISTRESS NOTED. WILL CONTINUE TO MONITOR.
--- NOTE | 2019-06-06 23:30 | NUR ---
PT SLEEPING COMFORTABLY BUT AROUSABLE. NO S/S OF DISTRESS NOTED. VS STABLE. WILL CONTINUE TO MONITOR.
[2019-06-07] VITALS: BP 119/68
--- NOTE | 2019-06-07 01:35 | NUR ---
PT SLEEPING COMFORTABLY BUT AROUSABLE. NO S/S OF DISTRESS NOTED. NO COMPLAINTS OF PAIN. NO SOB. AFEBRILE. WILL CONTINUE TO MONITOR.
--- NOTE | 2019-06-07 03:10 | NUR ---
PT SLEEPING COMFORTABLY BUT AROUSABLE. NO S/S OF DISTRESS NOTED. RESPIRATIONS EVEN, UNLABORED, AND WNL. WILL CONTINUE TO MONITOR.
[2019-06-07 04:00] VITALS: BP 131/83
[2019-06-07] MEDS: BLOOD GLUCOSE MONITORING 1 DEV DEV FS SCH (05:24)
--- NOTE | 2019-06-07 05:24 | NUR ---
BS 110. NO INSULIN COVERAGE NEEDED.
[2019-06-07 06:29] LABS: BASOPHILS # (AUTO) 0.1 K/uL (0.00-0.22); EOSINOPHILS # (AUTO) 0.3 K/uL (0-0.4); EOSINOPHILS % (AUTO) 5.3 % (0.0-4.0); HEMATOCRIT 42.5 % (36-52); HEMOGLOBIN 14.1 g/dL (12.0-18.0); LYMPHOCYTES # (AUTO) 2.1 K/uL (2.0-11.5); MEAN CORPUSCULAR HEMOGLOBIN 31 pg (27-31); MEAN CORPUSCULAR HGB CONC 33 g/dL (33-37); MEAN CORPUSCULAR VOLUME 93.7 fL (80-94); MONOCYTES # (AUTO) 0.5 K/uL (0.8-1.0); MONOCYTES % (AUTO) 7.9 % (1.7-9.3); NEUTROPHILS % (AUTO) 49.8 % (42.2-75.2); PLATELET COUNT (AUTO) 181 K/uL (140-450); RED BLOOD CELL COUNT(AUTO) 4.53 MIL/uL (4.20-6.10); RED CELL DISTRIBUTION WIDTH 12.1 % (11.6-13.7)
--- NOTE | 2019-06-07 06:50 | NUR ---
PT SLEEPING COMFORTABLY BUT AROUSABLE. PT IN STABLE CONDITION.
[2019-06-07 07:20] LABS: MAGNESIUM 1.8 mg/dL (1.8-2.4); PHOSPHORUS 3.6 mg/dL (2.5-4.9)
[2019-06-07 07:23] LABS: ANION GAP 11.9 (8-16); CARBON DIOXIDE 27.7 mmol/L (21-32); CREATININE 1.5 mg/dL (0.7-1.3); POTASSIUM 4.6 mmol/L (3.5-5.1)
--- NOTE | 2019-06-07 07:25 | NUR ---
RECEIVED PT FROM NIGHT NURSE. PT ASLEEP, AROUSABLE TO SPEECH. AAOX4. SKIN INTACT. RESPIRATIONS EVEN AND UNLABORED. DENIES PAIN AT THIS TIME. ON SENSOR SPECIALIST. IV SITE INTACT PATENT AND INFUSING PER ORDER AT L AC 18G. BED IN LOW POSITION. SAFETY MEASURES IN PLACE. WILL CONTINUE TO MONITOR.
[2019-06-07 08:00] VITALS: BP 126/83
[2019-06-07] MEDS ORDERED: BACLOFEN 10 MG TAB PO SCH ×2 (08:15→21:00)
[2019-06-07] MEDS ORDERED: ATOR20TA40 PO (08:20)
[2019-06-07] MEDS ORDERED: BACL10TA4 PO (08:21)
[2019-06-07] MEDS ORDERED: [UNRECOGNIZED DRUG - CODE] PO (08:21)
[2019-06-07] MEDS ORDERED: TRI48 PO (08:21)
[2019-06-07] MEDS ORDERED: [UNRECOGNIZED DRUG - CODE] PO (08:23)
[2019-06-07] MEDS ORDERED: FENOFIBRATE 48 MG TAB PO SCH (09:00)
[2019-06-07] MEDS: PANTOPRAZOLE 40 MG TABEC PO SCH (09:22)
[2019-06-07] MEDS: METOPROLOL 25 MG TAB PO SCH (09:22)
[2019-06-07] MEDS: LISINOPRIL 20 MG TAB PO SCH (09:22)
[2019-06-07] MEDS: ASPIRIN 81 MG TAB.CHEW PO SCH (09:22)
[2019-06-07] MEDS: NIACIN 500 MG TAB PO SCH (09:22)
[2019-06-07] MEDS: LACTOBACILLUS RHAMNOSUS GG 1 EACH CAP PO SCH (09:23)
--- NOTE | 2019-06-07 09:31 | NUR ---
MEDICATIONS ADMINISTERED PER ORDER. PT TOLERATED WELL. WILL CONTINUE TO MONITOR.
[2019-06-07 10:25] VITALS: BP 129/87
--- NOTE | 2019-06-07 11:15 | NUR ---
PT READY FOR DISCHARGE AT THIS TIME. NETWORK CABLE INSTALLER LEADS REMOVED, IV REMOVED WITH MINIMAL BLOOD LOSS AND LUMEN INTACT. RESPIRATIONS EVEN AND UNLABORED ON ROOM AIR. SKIN INTACT. AAOX4. DISCHARGE AND FOLLOW UP EDUCATION GIVEN. DISCHARGE PAPERWORK SIGNED BY PT. BELONGINGS CHECKED AND RETURNED TO PT IN BELONGINGS BAG. ESCORTED PT OFF UNIT AND OUT OF THE HOSPITAL ON FOOT.
== END 2019-06-07 11:35 | disposition home or self-care (01) | DRG 243 ==
LOC: MED 22:20 → MTU 06-06 00:16
PROVIDERS: ADMIT General Practice; ATTEND General Practice
DX: K21.9 Gastro-esophageal reflux disease without esophagitis (principal); N17.0 Acute kidney failure with tubular necrosis; M94.0 Chondrocostal junction syndrome [Tietze]; E66.9 Obesity, unspecified; I10 Essential (primary) hypertension; E78.5 Hyperlipidemia, unspecified; H54.413A Blindness right eye category 3, normal vision left eye; R73.03 Prediabetes; Z68.36 Body mass index [BMI] 36.0-36.9, adult; Z71.3 Dietary counseling and surveillance
CPT/HCPCS: 36415; 71045; 76700; 80048; 80053; 80305; 81001; 82550; 82553; 82948; 83036; 83605; 83735; 83880; 84100; 84439; 84443; 84484; 85025; 85379; 85610; 85730; 87081; 93005; 96374; 99291; J1644; J1815; J1885; J2270; J7030; Q0092

== ENCOUNTER 2019-06-13 07:48 | Emergency (ER) | payer MEDICAID ==
[~2019-06-13] VITALS: Ht 170.2 cm; Wt 104.3 kg
[~2019-06-13 07:48] MED LIST changes: +BACL10TA4 PO; -CYCL10TA14 PO; +TRI48 PO; +[UNRECOGNIZED DRUG - CODE] PO
--- NOTE | 2019-06-13 07:54 | NUR ---
Patient ambulated to bed 2. RN evaluating patient at bedside.
[2019-06-13 07:55] VITALS: BP 144/93
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
--- NOTE | 2019-06-13 08:15 | NUR ---
Patient being evaluated by physician at bedside.
[2019-06-13] MEDS ORDERED: LORATADINE 10 MG TAB PO ONE (08:20)
[2019-06-13 08:43] VITALS: BP 145/90
--- NOTE | 2019-06-13 08:43 | NUR ---
Patient discharged with v/s stable. Written and verbal after care instructions given and explained. All questions addressed prior to discharge. ID band removed. Patient advised to follow up with PMD.
== END 2019-06-13 08:43 | disposition home or self-care (01) ==
LOC: MED 07:48
DX: L29.9 Pruritus, unspecified (principal); R23.2 Flushing; T46.7X5A Adverse effect of peripheral vasodilators, initial encounter; E78.5 Hyperlipidemia, unspecified; I10 Essential (primary) hypertension; K21.9 Gastro-esophageal reflux disease without esophagitis; Z98.890 Other specified postprocedural states; Z79.899 Other long term (current) drug therapy; Z79.82 Long term (current) use of aspirin; Y92.89 Other specified places as the place of occurrence of the external cause
CPT/HCPCS: 99283

== ENCOUNTER 2019-06-19 17:39 | Emergency (ER) | payer MEDICAID ==
[~2019-06-19] VITALS: Ht 170.2 cm; Wt 106.1 kg
[2019-06-19 17:43] VITALS: BP 135/79
[2019-06-19] MEDS ORDERED: ACETAMINOPHEN 325 MG TAB PO ONE (17:55)
[2019-06-19] MEDS ORDERED: IBUPROFEN 800 MG TAB PO ONE (17:55)
[2019-06-19] MEDS ORDERED: NACL 0.9% 1,000 ML IV ONE (18:05)
[2019-06-19] MEDS ORDERED: KETOROLAC 30 MG/ML VIAL IVP ONE (18:05)
[2019-06-19] MEDS ORDERED: DIPHENOXYLATE /ATROPINE 2.5 MG TAB PO ONE (18:05)
[2019-06-19] MEDS ORDERED: ONDANSETRON 4 MG/2 ML VIAL IVP ONE (18:05)
[2019-06-19 18:20] VITALS: BP 135/79
--- NOTE | 2019-06-19 18:20 | NUR ---
C/O SOB, N/V/D, HEADACHE AND LOWER R BACK PAIN X 1 DAY. PT IS DIAPHORETIC AND HAS LABORED BREATHING. SPO2 93% RA, HR 113. LUNG SOUNDS CLEAR ALL THROUGHOUT. PT GETS OUT OF BREATH WHEN SPEAKING. a & O X 4. PT STATES SX SATRTED YESTERDAY. HAS CHRONIC PAIN ON RIGHT SIDE OF BACK AND ABD. SWELLING ON RIGHT EYE. PT STATE SHE CANT SEE FROM THE RIGHT EYE. HX: HTN RX: LISINOPRIL
[2019-06-19 18:53] LABS: BASOPHILS % (AUTO) 0.2 % (0.0-2.0); EOSINOPHILS % (AUTO) 0.1 % (0.0-4.0); HEMATOCRIT 48.7 % (36-52); HEMOGLOBIN 16.4 g/dL (12.0-18.0); LYMPHOCYTES # (AUTO) 0.8 K/uL (2.0-11.5); LYMPHOCYTES % (AUTO) 8.9 % (20.5-51.1); MEAN CORPUSCULAR HEMOGLOBIN 31 pg (27-31); MEAN CORPUSCULAR HGB CONC 34 g/dL (33-37); MEAN CORPUSCULAR VOLUME 93.3 fL (80-94); MONOCYTES # (AUTO) 0.5 K/uL (0.8-1.0); MONOCYTES % (AUTO) 5.2 % (1.7-9.3); NEUTROPHILS # (AUTO) 7.6 K/uL (1.8-7.7); NEUTROPHILS % (AUTO) 85.6 % (42.2-75.2); PLATELET COUNT (AUTO) 223 K/uL (140-450); RED BLOOD CELL COUNT(AUTO) 5.21 MIL/uL (4.20-6.10); RED CELL DISTRIBUTION WIDTH 12.5 % (11.6-13.7); WHITE BLOOD COUNT (AUTO) 8.9 K/uL (4.8-10.8)
[2019-06-19 19:52] LABS: ANION GAP 15.1 (8-16); CARBON DIOXIDE 19.6 mmol/L (21-32); POTASSIUM 3.7 mmol/L (3.5-5.1)
[2019-06-19 19:53] LABS: ALBUMIN 3.2 g/dL (3.4-5.0); CREATININE 1.7 mg/dL (0.7-1.3); TOTAL BILIRUBIN 1.4 mg/dL (0.0-1.0)
[2019-06-19 20:04] LABS: APPEARANCE,URINE CLEAR (CLEAR); BILIRUBIN,URINE 1+ (NEGATIVE); BLOOD, URINE 3+ (NEGATIVE); COLOR,URINE AMBER (YELLOW); LEUKOCYTE ESTERASE ,URINE NEGATIVE (NEGATIVE); NITRITE, URINE NEGATIVE (NEGATIVE); PH,URINE 5.5 (5.0-9.0); UGLUCOSE NEGATIVE (NEGATIVE)
[2019-06-19 20:12] LABS: WBC,URINE NONE SEEN /HPF (0-5)
--- NOTE | 2019-06-19 21:14 | NUR ---
Patient discharged with v/s stable. Written and verbal after care instructions given and explained. Patient alert, oriented and verbalized understanding of instructions. Ambulatory with steady gait. All questions addressed prior to discharge. ID band removed. Patient advised to follow up with PMD. Rx of MOTRIN AND ZOFRAN given. Patient educated on indication of medication including possible reaction and side effects. Opportunity to ask questions provided and answered.
== END 2019-06-19 21:14 | disposition home or self-care (01) ==
LOC: MED 17:39
DX: B34.9 Viral infection, unspecified (principal); R11.10 Vomiting, unspecified; R19.7 Diarrhea, unspecified; K21.9 Gastro-esophageal reflux disease without esophagitis; I10 Essential (primary) hypertension; Z98.890 Other specified postprocedural states; Z79.899 Other long term (current) drug therapy; Z79.82 Long term (current) use of aspirin
CPT/HCPCS: 36415; 71045; 80053; 81001; 83605; 85025; 87040; 87086; 87804; 93005; 96361; 96374; 96375; 99284; J1885; J2405; J7030

== ENCOUNTER 2019-07-26 19:08 | Emergency (ER) | payer MEDICAID ==
[~2019-07-26] VITALS: Ht 170.2 cm; Wt 108.4 kg
[2019-07-26 19:15] VITALS: BP 139/97
--- NOTE | 2019-07-26 19:18 | NUR ---
TO LOBBY A/W BED AMBULATORY
[2019-07-26 19:49] LABS: BASOPHILS # (AUTO) 0.1 K/uL (0.00-0.22); EOSINOPHILS # (AUTO) 0.1 K/uL (0-0.4); EOSINOPHILS % (AUTO) 1.5 % (0.0-4.0); HEMATOCRIT 47.4 % (36-52); HEMOGLOBIN 15.7 g/dL (12.0-18.0); LYMPHOCYTES # (AUTO) 2.2 K/uL (2.0-11.5); LYMPHOCYTES % (AUTO) 31.5 % (20.5-51.1); MEAN CORPUSCULAR HEMOGLOBIN 31 pg (27-31); MEAN CORPUSCULAR HGB CONC 33 g/dL (33-37); MEAN CORPUSCULAR VOLUME 91.9 fL (80-94); MONOCYTES # (AUTO) 0.4 K/uL (0.8-1.0); MONOCYTES % (AUTO) 5.7 % (1.7-9.3); NEUTROPHILS # (AUTO) 4.2 K/uL (1.8-7.7); NEUTROPHILS % (AUTO) 60.3 % (42.2-75.2); PLATELET COUNT (AUTO) 238 K/uL (140-450); RED BLOOD CELL COUNT(AUTO) 5.15 MIL/uL (4.20-6.10)
--- NOTE | 2019-07-26 19:55 | NUR ---
PATIENT ASSESSMENT COMPLETED AT THIS TIME. SEE ASSESSMENT. PATIENT SITTING UP IN CHAIR. NO DISTRESS NOTED. NO NEEDS STATED AT THIS TIME.
[2019-07-26 20:09] LABS: ALBUMIN 3.8 g/dL (3.4-5.0); ANION GAP 12.3 (8-16); CARBON DIOXIDE 28.4 mmol/L (21-32); CREATININE 1.9 mg/dL (0.7-1.3); POTASSIUM 4.7 mmol/L (3.5-5.1); TOTAL BILIRUBIN 0.4 mg/dL (0.0-1.0)
[2019-07-26] MEDS ORDERED: KETOROLAC 30 MG/ML VIAL IM ONE (20:40)
[2019-07-26 20:56] VITALS: BP 135/92
== END 2019-07-26 20:56 | disposition home or self-care (01) ==
LOC: MED 19:08
DX: G44.209 Tension-type headache, unspecified, not intractable (principal); I10 Essential (primary) hypertension; K21.9 Gastro-esophageal reflux disease without esophagitis; Z79.82 Long term (current) use of aspirin; Z79.899 Other long term (current) drug therapy
CPT/HCPCS: 36415; 80053; 84484; 85025; 96372; 99283; J1885

== ENCOUNTER 2020-08-06 20:16 | Emergency (ER) | payer SELFPAY ==
[~2020-08-06] VITALS: Ht 170.2 cm; Wt 98.9 kg
[2020-08-06 21:03] VITALS: BP 146/114
[2020-08-06 22:16] VITALS: BP 134/92
== END 2020-08-06 22:16 | disposition home or self-care (01) ==
LOC: MED 20:16
DX: R51.9 Headache, unspecified (principal); K21.9 Gastro-esophageal reflux disease without esophagitis; I10 Essential (primary) hypertension; Z98.890 Other specified postprocedural states; Z79.899 Other long term (current) drug therapy; Z79.82 Long term (current) use of aspirin
CPT/HCPCS: 82948; 99282

== ENCOUNTER 2020-10-10 21:49 | Emergency (ER) | payer MEDICAID ==
[~2020-10-10] VITALS: Ht 170.2 cm; Wt 113.4 kg
[~2020-10-10 21:49] MED LIST changes: -LISI-420 PO; +LISI-487 PO
[2020-10-10 22:05] VITALS: BP 158/105
--- NOTE | 2020-10-10 22:15 | NUR ---
50 Y/O MALE BIB SELF FROM HOME DUE TO C/O CHEST PAIN X3HRS NOW AND RADIATES TO SHOULDER 05/17. DURING ASSESSMENT, HE IS A/O X4, ABLE TO VERBALIZE NEEDS. PT DENIES TAKING ANY PAIN MEDICATION AT HOME. HE ALSO SAID HE DID NOT TAKE ANY ROUTINE HYPERTENSIVE MEDS TODAY. CHEST PAIN IS LOCALIZED TO LEFT CHEST AREA AND LEFT SHOULDER. DENIES SOB. NO C/O N/V. DENIES ANY ABD PAIN OR DISCOMFORT. NO REPORTED PROBLEMS WITH BLADDER AND BOWELS. LEFT PATIENT IN BED W/ BED RAILS UPX2. ERMD MADE AWARE. PMHX: HTN, DM2 ALLERGY: NKA
[2020-10-10] MEDS ORDERED: KETOROLAC 30 MG/ML VIAL IM ONE (23:45)
[2020-10-11] MEDS ORDERED: NAPR-54 PO (00:29)
[2020-10-11 00:40] VITALS: BP 145/100
--- NOTE | 2020-10-11 00:41 | NUR ---
Patient discharged with v/s stable. Written and verbal after care instructions RE: CHEST DISCOMFORT given and explained. Patient alert, oriented and verbalized understanding of instructions. Ambulatory with steady gait. All questions addressed prior to discharge. ID band removed. Patient advised to follow up with PMD. Rx of NAPROXEN given. Patient educated on indication of medication including possible reaction and side effects. Opportunity to ask questions provided and answered.
== END 2020-10-11 00:40 | disposition home or self-care (01) ==
LOC: MED 21:49
DX: R07.89 Other chest pain (principal); R51.9 Headache, unspecified; M25.512 Pain in left shoulder; E11.9 Type 2 diabetes mellitus without complications; K21.9 Gastro-esophageal reflux disease without esophagitis; I10 Essential (primary) hypertension; Z79.899 Other long term (current) drug therapy
CPT/HCPCS: 71045; 93005; 96372; 99283; J1885

== ENCOUNTER 2020-10-20 19:54 | Emergency (ER) | payer MEDICAID ==
[~2020-10-20] VITALS: Ht 170.2 cm; Wt 90.7 kg
[~2020-10-20 19:54] MED LIST changes: +NAPR-54 PO
[2020-10-20 20:03] VITALS: BP 170/100
--- NOTE | 2020-10-20 20:03 | NUR ---
TO BED AMBULATORY
--- NOTE | 2020-10-20 20:07 | NUR ---
50 YR OLD MALE PRESENTED TO THE ER WITH CC OF MEDICATION REFILL AND RIGHT RIB PAIN. PT IS AOX4. PT STATES NEED MEDICATION REFILL. PT STATES 8/10 NON-RADIATING SHARP RIGHT RIB PAIN THAT STARTED 2 MONTHS AGO. PT DENIES OTHER MEDICAL COMPLAINTS. BED LOCKED IN LOWEST POSITION WITH 1 SIDE RAIL UP. WILL CONTINUE TO MONITOR. HISTORY- DM, HTN ALLERGIES- NONE
--- NOTE | 2020-10-20 20:10 | NUR ---
Dr. Khalil examining patient.
--- NOTE | 2020-10-20 20:26 | NUR ---
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
--- NOTE | 2020-10-20 20:28 | NUR ---
X-RAY TECH AT BEDSIDE.
[2020-10-20 20:32] LABS: BASOPHILS % (AUTO) 0.4 % (0.0-2.0); EOSINOPHILS # (AUTO) 0.3 K/uL (0-0.4); EOSINOPHILS % (AUTO) 4.2 % (0.0-4.0); HEMATOCRIT 44.6 % (36-52); HEMOGLOBIN 15.3 g/dL (12.0-18.0); LYMPHOCYTES # (AUTO) 2.4 K/uL (2.0-11.5); LYMPHOCYTES % (AUTO) 28.2 % (20.5-51.1); MEAN CORPUSCULAR HEMOGLOBIN 31 pg (27-31); MEAN CORPUSCULAR HGB CONC 34 g/dL (33-37); MEAN CORPUSCULAR VOLUME 90.3 fL (80-94); MONOCYTES # (AUTO) 0.5 K/uL (0.8-1.0); MONOCYTES % (AUTO) 5.5 % (1.7-9.3); NEUTROPHILS # (AUTO) 5.2 K/uL (1.8-7.7); NEUTROPHILS % (AUTO) 61.7 % (42.2-75.2); PLATELET COUNT (AUTO) 210 K/uL (140-450); RED BLOOD CELL COUNT(AUTO) 4.94 MIL/uL (4.20-6.10); RED CELL DISTRIBUTION WIDTH 12.7 % (11.6-13.7); WHITE BLOOD COUNT (AUTO) 8.4 K/uL (4.8-10.8)
[2020-10-20 20:46] LABS: ALBUMIN 3.5 g/dL (3.4-5.0); ANION GAP 10.8 (8-16); CARBON DIOXIDE 28.6 mmol/L (21-32); CREATININE 1.4 mg/dL (0.6-1.3); POTASSIUM 4.4 mmol/L (3.5-5.1); TOTAL BILIRUBIN 0.6 mg/dL (0.0-1.0)
[2020-10-20] MEDS ORDERED: METF1000 PO (21:17)
[2020-10-20 21:50] VITALS: BP 152/103
--- NOTE | 2020-10-20 21:50 | NUR ---
Patient discharged with v/s stable. Written and verbal after care instructions given and explained. Patient alert, oriented and verbalized understanding of instructions. Ambulatory with steady gait. All questions addressed prior to discharge. ID band removed. Patient advised to follow up with PMD. Rx of METFORMIN given. Patient educated on indication of medication including possible reaction and side effects. Opportunity to ask questions provided and answered.
== END 2020-10-20 21:50 | disposition home or self-care (01) ==
LOC: MED 19:54
DX: R16.0 Hepatomegaly, not elsewhere classified (principal); E11.9 Type 2 diabetes mellitus without complications; I10 Essential (primary) hypertension; K21.9 Gastro-esophageal reflux disease without esophagitis; Z76.0 Encounter for issue of repeat prescription; Z79.84 Long term (current) use of oral hypoglycemic drugs; Z79.82 Long term (current) use of aspirin; Z79.899 Other long term (current) drug therapy
CPT/HCPCS: 36415; 76705; 80053; 83690; 85025; 99284

== ENCOUNTER 2021-01-19 06:30 | Emergency (ER) | payer MEDICAID ==
[~2021-01-19] VITALS: Ht 170.2 cm; Wt 97.5 kg
[~2021-01-19 06:30] MED LIST changes: +METF1000 PO
[2021-01-19 06:35] VITALS: BP 143/95
[2021-01-19] MEDS ORDERED: BLOOD GLUCOSE MONITORING 1 DEV DEV FS SCH (06:50)
[2021-01-19] MEDS ORDERED: LIDOCAINE OINTMENT 5% 35 GM TUBE TP SCH (06:50)
[2021-01-19] MEDS ORDERED: ACETAMINOPHEN 325 MG TAB PO ONE ×2 (06:50→07:00)
[2021-01-19 07:14] LABS: BASOPHILS % (AUTO) 0.6 % (0.0-2.0); EOSINOPHILS # (AUTO) 0.1 K/uL (0-0.4); EOSINOPHILS % (AUTO) 1.7 % (0.0-4.0); HEMATOCRIT 48.9 % (36-52); HEMOGLOBIN 16.7 g/dL (12.0-18.0); LYMPHOCYTES % (AUTO) 33.5 % (20.5-51.1); MEAN CORPUSCULAR HEMOGLOBIN 31 pg (27-31); MEAN CORPUSCULAR HGB CONC 34 g/dL (33-37); MEAN CORPUSCULAR VOLUME 90.3 fL (80-94); MONOCYTES # (AUTO) 0.3 K/uL (0.8-1.0); MONOCYTES % (AUTO) 4.5 % (1.7-9.3); NEUTROPHILS # (AUTO) 3.5 K/uL (1.8-7.7); NEUTROPHILS % (AUTO) 59.7 % (42.2-75.2); PLATELET COUNT (AUTO) 207 K/uL (140-450); RED BLOOD CELL COUNT(AUTO) 5.41 MIL/uL (4.20-6.10); WHITE BLOOD COUNT (AUTO) 5.9 K/uL (4.8-10.8)
[2021-01-19 07:22] LABS: APPEARANCE,URINE CLEAR (CLEAR); BILIRUBIN,URINE NEGATIVE (NEGATIVE); BLOOD, URINE 2+ (NEGATIVE); COLOR,URINE YELLOW (YELLOW); LEUKOCYTE ESTERASE ,URINE NEGATIVE (NEGATIVE); NITRITE, URINE NEGATIVE (NEGATIVE); UGLUCOSE TRACE (NEGATIVE)
[2021-01-19 07:22] LABS: ANION GAP 17.4 (8-16); CREATININE 1.5 mg/dL (0.6-1.3); POTASSIUM 3.4 mmol/L (3.5-5.1)
[2021-01-19 07:26] LABS: WBC,URINE 0-5 /HPF (0-5)
[2021-01-19] MEDS ORDERED: LORazepam 2 MG/ML VIAL IM ONE (07:30)
[2021-01-19] MEDS ORDERED: LISI40TA12 PO (07:53)
[2021-01-19] MEDS ORDERED: LANC-947 TP (08:25)
[2021-01-19 08:27] VITALS: BP 153/103
== END 2021-01-19 08:27 | disposition home or self-care (01) ==
LOC: MED 06:30
DX: R07.89 Other chest pain (principal); I10 Essential (primary) hypertension; E11.9 Type 2 diabetes mellitus without complications; Z79.899 Other long term (current) drug therapy
CPT/HCPCS: 36415; 80048; 81001; 82803; 85025; 93005; 96372; 99284; J2060

== ENCOUNTER 2021-01-26 08:59 | Emergency (ER) | payer MEDICAID ==
[~2021-01-26] VITALS: Ht 170.2 cm; Wt 99.3 kg
[~2021-01-26 08:59] MED LIST changes: +LANC-947 TP; +LISI40TA12 PO
[2021-01-26 09:02] VITALS: BP 143/116
[2021-01-26] MEDS ORDERED: FLUORESCEIN OPTH STRIP 1 MG OP ONE (09:25)
[2021-01-26] MEDS ORDERED: TETRACAINE HCL/PF 0.5% OPTH 4 ML BTL OP ONE (09:25)
[2021-01-26] MEDS ORDERED: TOMOMETER 1 DEV DEV MC ONE (09:27)
[2021-01-26] MEDS ORDERED: ERYTHROMYCIN 0.5% OPTH OINT 1 GM TUBE OP ONE (09:45)
[2021-01-26] MEDS ORDERED: ERYT5OIN58 OP (09:52)
[2021-01-26 10:23] VITALS: BP 152/106
== END 2021-01-26 10:20 | disposition home or self-care (01) ==
LOC: MED 08:59
DX: S05.02XA Injury of conjunctiva and corneal abrasion without foreign body, left eye, initial encounter (principal); H53.8 Other visual disturbances; E11.9 Type 2 diabetes mellitus without complications; I10 Essential (primary) hypertension; H54.61 Unqualified visual loss, right eye, normal vision left eye; Z79.899 Other long term (current) drug therapy; Z79.82 Long term (current) use of aspirin; Z79.84 Long term (current) use of oral hypoglycemic drugs; X58.XXXA Exposure to other specified factors, initial encounter; Y93.89 Activity, other specified; Y92.89 Other specified places as the place of occurrence of the external cause; Y99.8 Other external cause status
CPT/HCPCS: 99284

== ENCOUNTER 2021-02-09 21:04 | Emergency (ER) | payer MEDICAID ==
[~2021-02-09] VITALS: Ht 170.2 cm; Wt 96.2 kg
[~2021-02-09 21:04] MED LIST changes: +ERYT5OIN58 OP
[2021-02-09 21:14] VITALS: BP 116/90
--- NOTE | 2021-02-09 21:58 | NUR ---
50 YO M BIB SELF WITH C/C OF EPIGASTRIC PAIN X2-3 WKS 6/10 THAT COMES AND GOES AND WORSENS IF HE EATS FOOD. PT ALSO COMPLAINS OF BLANKENSHIP, DIAPHORESIS, SOB AND VISUAL DISTURBANCE ALSO FOR ABOUT 2-3 WKS. PT STATED HE WAS JUST DX WITH DM AND SINCE THEN HAS NOT FELT WELL. PT STATED HE HAS NORMAL BMS. ABD IS SOFT AND ROUND, BOWEL SOUNDS ACTIVE X4 QUADS, RIGHT LOWER AND UPPER QUADS HURT WHEN TOUCHED STATED BY PT. DENIES FEVER. PT IS SITTING UP IN BED, BED LOCKED IN LOWEST POSITION, SIDE RAILSX1. HX: DM2 BS: 108 RX: -PRIL AND METFORMIN NKA
--- NOTE | 2021-02-09 22:04 | NUR ---
Dr. Negron examining patient.
[2021-02-09] MEDS ORDERED: KETOROLAC 60 MG/2 ML VIAL IM ONE (22:10)
[2021-02-09] MEDS ORDERED: ONDANSETRON 4 MG ODT PO ONE (22:10)
[2021-02-09] MEDS ORDERED: IBUP-2213 PO (22:13)
[2021-02-09] MEDS ORDERED: OMEP40EC24 PO (22:13)
[2021-02-09 22:42] VITALS: BP 116/90
--- NOTE | 2021-02-09 22:42 | NUR ---
Patient discharged with v/s stable. Written and verbal after care instructions given and explained. Patient alert, oriented and verbalized understanding of instructions. Ambulatory with steady gait. All questions addressed prior to discharge. ID band removed. Patient advised to follow up with PMD. Rx of PRILOSEC AND IBUPROFEN given. Patient educated on indication of medication including possible reaction and side effects. Opportunity to ask questions provided and answered.
[2021-02-09] MEDS ORDERED: ONDA8TAB87 PO (23:48)
== END 2021-02-09 22:42 | disposition home or self-care (01) ==
LOC: MED 21:04
DX: R10.13 Epigastric pain (principal); R11.0 Nausea; R07.9 Chest pain, unspecified; E11.9 Type 2 diabetes mellitus without complications; I10 Essential (primary) hypertension; Z98.890 Other specified postprocedural states; Z79.84 Long term (current) use of oral hypoglycemic drugs; Z79.899 Other long term (current) drug therapy; Z79.82 Long term (current) use of aspirin
CPT/HCPCS: 96372; 99283; J1885; Q0162

== ENCOUNTER 2021-05-25 12:18 | Emergency (ER) | payer MEDICAID ==
[~2021-05-25] VITALS: Ht 170.2 cm; Wt 99.3 kg
[~2021-05-25 12:18] MED LIST changes: +IBUP-2213 PO; +OMEP40EC24 PO; +ONDA8TAB87 PO
[2021-05-25 12:21] VITALS: BP 177/111
--- NOTE | 2021-05-25 12:30 | NUR ---
50 Y/O M BIB SELF FROM HOME, C/O L SHOULDER PAIN THAT RADIATES TO R SIDE OF LOWER BACK THAT STARTED 2 WEEKS AGO. DENIES N/V/D; SKIN IS PINK/WARM/DRY; AAOX4 WITH EVEN AND STEADY GAIT; LUNGS CLEAR BL; HR EVEN AND REGULAR; PT DENIES ANY FEVER, CP, SOB, OR COUGH AT THIS TIME; PATIENT STATES PAIN OF 8/10 AT THIS TIME. ERMD MADE AWARE OF PT STATUS AT THIS TIME. RETURNED TO [facility]. PMH: DM2, HTN NKA MED: LISINOPRIL
[2021-05-25] MEDS ORDERED: KETOROLAC 30 MG/ML VIAL IM ONE (12:55)
[2021-05-25] MEDS ORDERED: DICL20GE TP (15:38)
[2021-05-25 15:56] VITALS: BP 177/111
--- NOTE | 2021-05-25 16:21 | NUR ---
Patient discharged with v/s stable. Written and verbal after care instructions given and explained. Patient alert, oriented and verbalized understanding of instructions. Ambulatory with steady gait. All questions addressed prior to discharge. ID band removed. Patient advised to follow up with PMD. Rx of DICLOFENAC SODIUM given. Patient educated on indication of medication including possible reaction and side effects. Opportunity to ask questions provided and answered.
== END 2021-05-25 16:21 | disposition home or self-care (01) ==
LOC: MED 12:18
DX: R07.89 Other chest pain (principal); I10 Essential (primary) hypertension; M25.512 Pain in left shoulder; E11.9 Type 2 diabetes mellitus without complications; Z79.899 Other long term (current) drug therapy; Z79.84 Long term (current) use of oral hypoglycemic drugs; Z79.82 Long term (current) use of aspirin
CPT/HCPCS: 71045; 93005; 96372; 99283; J1885

== ENCOUNTER 2021-06-14 15:45 | Emergency (ER) | payer MEDICAID ==
[~2021-06-14] VITALS: Ht 167.6 cm; Wt 98.9 kg
[~2021-06-14 15:45] MED LIST changes: +DICL20GE TP
[2021-06-14 16:11] VITALS: BP 147/116
[2021-06-14] MEDS ORDERED: LIDOCAINE 5% 1 EA PATCH TP STA (16:55)
[2021-06-14] MEDS ORDERED: KETOROLAC 30 MG/ML VIAL IM ONE (16:55)
[2021-06-14] MEDS ORDERED: ACET-8386 PO (18:09)
[2021-06-14] MEDS ORDERED: IBUP-1842 PO (18:09)
[2021-06-14] MEDS ORDERED: CYCL-711 PO (18:09)
[2021-06-14 18:15] VITALS: BP 148/103
== END 2021-06-14 18:20 | disposition home or self-care (01) ==
LOC: MED 15:45
DX: M54.50 Low back pain, unspecified (principal); M79.671 Pain in right foot; E11.9 Type 2 diabetes mellitus without complications; I10 Essential (primary) hypertension; Z79.82 Long term (current) use of aspirin; Z79.899 Other long term (current) drug therapy; Z79.84 Long term (current) use of oral hypoglycemic drugs
CPT/HCPCS: 72110; 73630; 96372; 99284; J1885; Q0092

== ENCOUNTER 2021-06-17 20:14 | Emergency (ER) | payer MEDICAID ==
[~2021-06-17] VITALS: Ht 170.2 cm; Wt 99.8 kg
[~2021-06-17 20:14] MED LIST changes: +ACET-8386 PO; +CYCL-711 PO; +IBUP-1842 PO
[2021-06-17 20:19] VITALS: BP 186/113
--- NOTE | 2021-06-17 20:34 | NUR ---
pt ambulated to bed 05 with steady gait.
--- NOTE | 2021-06-17 20:53 | NUR ---
REPORTS HIGH BLOOD PRESSURE AT HOME, BACK PAIN AND HEADACHE. DENIES NAUSEA OR VOMITING. NO SOB OR CHEST PAIN.
--- NOTE | 2021-06-17 22:18 | NUR ---
urine and blood collected at this time, walked over to lab.
--- NOTE | 2021-06-17 22:19 | NUR ---
X-Ray at bedside.
[2021-06-17 22:27] LABS: BASOPHILS % (AUTO) 0.7 % (0.0-2.0); EOSINOPHILS # (AUTO) 0.5 K/uL (0-0.4); EOSINOPHILS % (AUTO) 7.1 % (0.0-4.0); HEMATOCRIT 45.7 % (36-52); HEMOGLOBIN 15.7 g/dL (12.0-18.0); LYMPHOCYTES # (AUTO) 1.9 K/uL (2.0-11.5); LYMPHOCYTES % (AUTO) 27.2 % (20.5-51.1); MEAN CORPUSCULAR HEMOGLOBIN 31 pg (27-31); MEAN CORPUSCULAR HGB CONC 34 g/dL (33-37); MONOCYTES # (AUTO) 0.4 K/uL (0.8-1.0); MONOCYTES % (AUTO) 5.6 % (1.7-9.3); NEUTROPHILS # (AUTO) 4.2 K/uL (1.8-7.7); NEUTROPHILS % (AUTO) 59.4 % (42.2-75.2); PLATELET COUNT (AUTO) 210 K/uL (140-450); RED BLOOD CELL COUNT(AUTO) 5.08 MIL/uL (4.20-6.10); RED CELL DISTRIBUTION WIDTH 13.1 % (11.6-13.7)
--- NOTE | 2021-06-17 22:32 | NUR ---
Dr. Negron examining patient.
[2021-06-17 22:42] LABS: ALBUMIN 3.4 g/dL (3.4-5.0); ANION GAP 13.9 (8-16); CARBON DIOXIDE 24.2 mmol/L (21-32); CREATININE 1.8 mg/dL (0.6-1.3); POTASSIUM 4.1 mmol/L (3.5-5.1); TOTAL BILIRUBIN 0.5 mg/dL (0.0-1.0)
[2021-06-17] MEDS ORDERED: CLONIDINE HYDROCHLORIDE 0.1 MG TAB PO ONE (23:05)
[2021-06-17] MEDS ORDERED: IBUPROFEN 400 MG TAB PO ONE (23:05)
--- NOTE | 2021-06-18 00:34 | NUR ---
PT MOVED TO BED #8
[2021-06-18] MEDS ORDERED: CLON0.1T15 PO (02:41)
--- NOTE | 2021-06-18 02:53 | NUR ---
PATIENT CLEARED FOR DISCHARGE AT THIS TIME. PATIENT HAS NO FURTHER COMPLAINTS OR CONCERNS AT THIS TIME FOLLOWING DISCHARGE TEACHING. PATIENT ADVISED TO FOLLOW UP WITH PCP AND RETURN IF CONDITION WORSENS.
[2021-06-18 02:54] VITALS: BP 137/66
== END 2021-06-18 02:53 | disposition home or self-care (01) ==
LOC: MED 20:14
DX: I10 Essential (primary) hypertension (principal); E11.9 Type 2 diabetes mellitus without complications; Z79.899 Other long term (current) drug therapy; Z79.84 Long term (current) use of oral hypoglycemic drugs; Z79.82 Long term (current) use of aspirin
CPT/HCPCS: 36415; 71045; 80053; 84484; 85025; 93005; 99285; Q0092

== ENCOUNTER 2021-08-09 17:10 | Emergency (ER) | payer MEDICAID ==
[~2021-08-09] VITALS: Ht 170.2 cm; Wt 99.3 kg
[~2021-08-09 17:10] MED LIST changes: +CLON0.1T15 PO
[2021-08-09 17:38] VITALS: BP_SYST 153; BP_SYST 163; BP_DIAS 100; BP_DIAS 117
[2021-08-09] MEDS ORDERED: METOCLOPRAMIDE 10 MG/2 ML INJ VIAL IM ONE (21:30)
[2021-08-09] MEDS ORDERED: lisinopriL 20 MG TAB PO ONE (21:30)
[2021-08-09] MEDS ORDERED: ASPIRIN 81 MG TAB.CHEW PO ONE (21:55)
[2021-08-09 22:07] LABS: BASOPHILS # (AUTO) 0.5 K/uL (0.00-0.22); EOSINOPHILS # (AUTO) 0.2 K/uL (0-0.4); EOSINOPHILS % (AUTO) 2.7 % (0.0-4.0); HEMATOCRIT 50.6 % (36-52); HEMOGLOBIN 17.7 g/dL (12.0-18.0); LYMPHOCYTES # (AUTO) 1.9 K/uL (2.0-11.5); LYMPHOCYTES % (AUTO) 21.4 % (20.5-51.1); MEAN CORPUSCULAR HEMOGLOBIN 31 pg (27-31); MEAN CORPUSCULAR HGB CONC 35 g/dL (33-37); MEAN CORPUSCULAR VOLUME 88.9 fL (80-94); MONOCYTES # (AUTO) 0.5 K/uL (0.8-1.0); MONOCYTES % (AUTO) 5.1 % (1.7-9.3); NEUTROPHILS # (AUTO) 5.8 K/uL (1.8-7.7); NEUTROPHILS % (AUTO) 64.9 % (42.2-75.2); PLATELET COUNT (AUTO) 224 K/uL (140-450); RED BLOOD CELL COUNT(AUTO) 5.69 MIL/uL (4.20-6.10); RED CELL DISTRIBUTION WIDTH 12.9 % (11.6-13.7)
[2021-08-09 22:13] LABS: BASOPHILS % (AUTO) 5.9 % (0.0-2.0)
[2021-08-09 22:28] LABS: ALBUMIN 3.5 g/dL (3.4-5.0); ANION GAP 15.6 (8-16); CARBON DIOXIDE 21.7 mmol/L (21-32); POTASSIUM 4.3 mmol/L (3.5-5.1); TOTAL BILIRUBIN 0.4 mg/dL (0.0-1.0)
[2021-08-10] MEDS ORDERED: ASPIRIN 81 MG TAB.CHEW ONE (00:28)
[2021-08-10 00:30] VITALS: BP 130/79
--- NOTE | 2021-08-10 00:30 | NUR ---
PER DR. CRUZ HOLD REGLAN IM AND ZESTRIL 20MG.
[2021-08-10] MEDS ORDERED: LISI40TA12 PO (00:47)
--- NOTE | 2021-08-10 01:10 | NUR ---
Patient discharged with v/s stable. Written and verbal after care instructions given and explained. Patient alert, oriented and verbalized understanding of instructions. Ambulatory with steady gait. All questions addressed prior to discharge. ID band removed. Patient advised to follow up with PMD. Rx of LISINOPRIL given. Patient educated on indication of medication including possible reaction and side effects. Opportunity to ask questions provided and answered.
== END 2021-08-10 01:10 | disposition home or self-care (01) ==
LOC: MED 17:10
DX: I12.9 Hypertensive chronic kidney disease with stage 1 through stage 4 chronic kidney disease, or unspecified chronic kidney disease (principal); E11.22 Type 2 diabetes mellitus with diabetic chronic kidney disease; N18.9 Chronic kidney disease, unspecified; R07.9 Chest pain, unspecified; Z79.84 Long term (current) use of oral hypoglycemic drugs; Z79.899 Other long term (current) drug therapy; Z79.82 Long term (current) use of aspirin; Z98.890 Other specified postprocedural states
CPT/HCPCS: 36415; 71045; 80053; 83690; 83880; 84484; 85025; 93005; 99285

== ENCOUNTER 2021-10-05 18:47 | Inpatient (IN) | payer MEDICAID, SELFPAY ==
[~2021-10-05] VITALS: Ht 165.1 cm; Wt 100.7 kg
[2021-10-05 18:50] VITALS: BP 140/93
--- NOTE | 2021-10-05 19:02 | NUR ---
DR. GASTELUM BEDSIDE EVALUATING PT
[2021-10-05] MEDS ORDERED: ASPIRIN 325 MG TAB PO ONE (19:10)
--- NOTE | 2021-10-05 19:11 | NUR ---
BLOOD WORK WALKED TO LAB, HANDED TO JOHN
--- NOTE | 2021-10-05 19:13 | NUR ---
PT PROVIDED WITH WARM BLANKET AND PLACED ON BEDSIDE OPERATIONS PLANT ATTENDANT
--- NOTE | 2021-10-05 19:15 | NUR ---
Note undone in EDM - 10/05/21 at 1915 by [email or web address] 51 y/o male, pt states cp started 20 minutes prior to arrival. denies n/v/d, sob, cough, sore throat, fever or chills. pain radiates from chest to left arm. pain is currently 8/10 and is tight like pain. pmh: htn, dm2 nka med: htn medications
--- NOTE | 2021-10-05 19:16 | NUR ---
51 y/o male, pt states cp started 20 minutes prior to arrival. denies n/v/d, sob, cough, sore throat, fever or chills. pain radiates from chest to left arm. pain is currently 8/10 and is tight like pain. HR is currently even and regular. patient positioned for comfort, HOB elevated. pmh: htn, dm2 nka med: htn medications
--- NOTE | 2021-10-05 19:25 | NUR ---
Pt report given to HERSON Santa. Transfer of care at this time.
--- NOTE | 2021-10-05 19:32 | NUR ---
XRAY AT BEDSIDE
[2021-10-05 19:37] LABS: ALBUMIN 3.4 g/dL (3.4-5.0); ANION GAP 10.9 (8-16); CARBON DIOXIDE 25.8 mmol/L (21-32); CREATININE 1.6 mg/dL (0.6-1.3); POTASSIUM 3.7 mmol/L (3.5-5.1); TOTAL BILIRUBIN 0.4 mg/dL (0.0-1.0)
--- NOTE | 2021-10-05 21:04 | NUR ---
LABS AT BEDSIDE
[2021-10-05 21:09] LABS: BASOPHILS % (AUTO) 0.5 % (0.0-2.0); EOSINOPHILS # (AUTO) 0.4 K/uL (0-0.4); EOSINOPHILS % (AUTO) 4.8 % (0.0-4.0); HEMOGLOBIN 15.4 g/dL (12.0-18.0); LYMPHOCYTES # (AUTO) 2.7 K/uL (2.0-11.5); LYMPHOCYTES % (AUTO) 36.5 % (20.5-51.1); MEAN CORPUSCULAR HEMOGLOBIN 31 pg (27-31); MEAN CORPUSCULAR HGB CONC 34 g/dL (33-37); MEAN CORPUSCULAR VOLUME 89.2 fL (80-94); MONOCYTES # (AUTO) 0.3 K/uL (0.8-1.0); MONOCYTES % (AUTO) 4.5 % (1.7-9.3); NEUTROPHILS % (AUTO) 53.7 % (42.2-75.2); PLATELET COUNT (AUTO) 262 K/uL (140-450); RED BLOOD CELL COUNT(AUTO) 5.05 MIL/uL (4.20-6.10); RED CELL DISTRIBUTION WIDTH 13.6 % (11.6-13.7); WHITE BLOOD COUNT (AUTO) 7.5 K/uL (4.8-10.8)
[2021-10-05] MEDS ORDERED: NACL 0.9% 1,000 ML IV ONE (21:30)
[2021-10-05] MEDS ORDERED: ZOLPIDEM 5 MG TAB PO PRN (23:00)
[2021-10-05] MEDS ORDERED: POTASSIUM CHLORIDE 10 MEQ TABER PO PRN (23:00)
[2021-10-05] MEDS ORDERED: ONDANSETRON 4 MG/2 ML VIAL IM/IVP PRN (23:00)
[2021-10-05] MEDS ORDERED: ACETAMINOPHEN 325 MG TAB PO PRN (23:00)
[2021-10-05] MEDS ORDERED: MORPHINE SULFATE 2 MG/ML SYR IVP PRN (23:00)
[2021-10-05] MEDS ORDERED: guaiFENesin DM 200/20 MG-10 ML 10 ML UDC PO PRN (23:00)
[2021-10-05] MEDS ORDERED: HYDROcodone/APAP 7.5/325 MG 1 TAB PO PRN (23:00)
[2021-10-05] MEDS ORDERED: DOCUSATE SODIUM 100 MG GELCAP PO PRN (23:00)
--- NOTE | 2021-10-05 23:00 | NUR ---
Patient will be admitted to care of DR PALACIOS. Admited to TELE. Will go to room 119B. Belongings list completed. Report to MARKUS BAINS.
[2021-10-05 23:05] VITALS: BP 134/92
[2021-10-05] MEDS ORDERED: NITROGLYCERIN 0.4 MG TAB SL PRN (23:05)
[2021-10-05] MEDS ORDERED: DEXTROSE 50% 50 ML SYR IVP PRN (23:10)
[2021-10-05] MEDS ORDERED: INSULIN LISPRO SLIDING SCALE 100 UNITS/ML VIAL SUBQ PRN (23:10)
[2021-10-05] MEDS: NACL 0.9% 1,000 ML IV SCH (23:10)
--- NOTE | 2021-10-05 23:15 | NUR ---
RECEIVED PT FROM ER NURSE FOR CONTINUITY OF CARE.PT ARRIVED TO UNIT VIA GURNEY, AMBULATED TO BED WITH OWN STRENGTH. PT A&O X 4, ON ROOM AIR. BREATHING EQUAL AND UNLABORED. IV ON R AC G18, INFUSING WELL PER MD ORDER. SKIN WARM, DRY AND INTACT. COMPLAINS OF 5/10 CHEST PAIN THAT RADIATES TO LEFT ARM. SR 67 ON TELE MONITOR.MRSA SWAB DONE.ORIENTED TO ROOM AND CALL LIGHT. ALL PRECAUTIONS IN PLACE. CALL LIGHT WITHIN REACH. WILL CONTINUE TO MONITOR.
[2021-10-05 23:30] LABS: CHOL/HDL RATIO 6.3 (1-4.5); FREE T4 (FREE THYROXINE) 1.03 ng/dL (0.76-1.46); MAGNESIUM 1.6 mg/dL (1.8-2.4); PHOSPHORUS 3.7 mg/dL (2.5-4.9); THYROID STIMULATING HORMONE 2.29 uIU/mL (0.34-3.74)
--- NOTE | 2021-10-05 23:50 | NUR ---
HEPARIN GIVEN VIA SQ PER MD ORDER. PT TOLERATED WELL. WILL CONTINUE TO MONITOR.
--- NOTE | 2021-10-06 00:39 | NUR ---
PT ASLEEP. VISIBLE CHEST RISE AND FALL NOTED.NO S/SX OF DISTRESS NOTED. ALL PRECAUTIONS IN PLACE. WILL CONTINUE TO MONITOR.
[2021-10-06 04:00] VITALS: BP 137/93
[2021-10-06 05:24] LABS: ANION GAP 13.1 (8-16); CARBON DIOXIDE 23.3 mmol/L (21-32); CREATININE 1.3 mg/dL (0.6-1.3); POTASSIUM 4.4 mmol/L (3.5-5.1)
[2021-10-06 05:35] LABS: PROTHROMBIN TIME 9.9 secs (10.8-13.4)
[2021-10-06 05:50] LABS: APPEARANCE,URINE CLEAR (CLEAR); BILIRUBIN,URINE NEGATIVE (NEGATIVE); BLOOD, URINE 1+ (NEGATIVE); COLOR,URINE YELLOW (YELLOW); LEUKOCYTE ESTERASE ,URINE NEGATIVE (NEGATIVE); NITRITE, URINE NEGATIVE (NEGATIVE); UGLUCOSE NEGATIVE (NEGATIVE)
[2021-10-06 06:07] LABS: RBC,URINE 0-5 /HPF (0-5); WBC,URINE 0-5 /HPF (0-5)
[2021-10-06 06:12] LABS: BARBITURATE, URINE NEGATIVE ng/ml (NEG <=200); BENZODIAZEPINE, URINE NEGATIVE ng/mL (NEG <=200); CANNABINOID, URINE NEGATIVE ng/mL (NEG <=50); COCAINE, URINE NEGATIVE ng/mL (NEG <=300); OPIATE, URINE NEGATIVE ng/mL (NEG <=2000); PHENCYCLIDINE SCREEN,URINE NEGATIVE ng/mL (NEG <=25)
--- NOTE | 2021-10-06 06:26 | NUR ---
PT IS STABLE. NO ACUTE EVENTS THROUGHOUT THE NIGHT. NO S/SX OF DISTRESS NOTED. NO COMPLAINS AT THIS MOMENT. ALL NEEDS ATTENDED. ALL SAFETY PRECAUTIONS IN PLACE. WILL ENDORSE TO AM SHIFT NURSE.
[2021-10-06] MEDS: BLOOD GLUCOSE MONITORING 1 DEV DEV FS SCH ×4 (06:31→20:42)
[2021-10-06 06:39] LABS: BASOPHILS % (AUTO) 0.6 % (0.0-2.0); EOSINOPHILS # (AUTO) 0.4 K/uL (0-0.4); EOSINOPHILS % (AUTO) 5.9 % (0.0-4.0); HEMATOCRIT 43.2 % (36-52); HEMOGLOBIN 14.5 g/dL (12.0-18.0); LYMPHOCYTES # (AUTO) 2.4 K/uL (2.0-11.5); LYMPHOCYTES % (AUTO) 40.4 % (20.5-51.1); MEAN CORPUSCULAR HEMOGLOBIN 30 pg (27-31); MEAN CORPUSCULAR HGB CONC 34 g/dL (33-37); MEAN CORPUSCULAR VOLUME 89.6 fL (80-94); MONOCYTES # (AUTO) 0.3 K/uL (0.8-1.0); MONOCYTES % (AUTO) 5.8 % (1.7-9.3); NEUTROPHILS # (AUTO) 2.9 K/uL (1.8-7.7); NEUTROPHILS % (AUTO) 47.3 % (42.2-75.2); PLATELET COUNT (AUTO) 213 K/uL (140-450); RED BLOOD CELL COUNT(AUTO) 4.82 MIL/uL (4.20-6.10); RED CELL DISTRIBUTION WIDTH 13.4 % (11.6-13.7); WHITE BLOOD COUNT (AUTO) 6.1 K/uL (4.8-10.8)
--- NOTE | 2021-10-06 07:24 | NUR ---
PT IS STABLE. ENDORSED TO AM SHIFT NURSE FOR CONTINUITY OF CARE.
--- NOTE | 2021-10-06 07:25 | NUR ---
RECEIVED REPORT FROM PM SHIFT RN FREDDY FOR CONTINUITY OF CARE. PT. STABLE, COMFORTABLY SLEEPING IN THE BED. NO S/SX OF DISTRESS NOTED. SAFETY MEASURES IN PLACE. WILL CONTINUE TO MONITOR THE PT.
[2021-10-06 08:00] VITALS: BP 138/88
[2021-10-06] MEDS: ASPIRIN 81 MG TAB.CHEW PO SCH (08:30)
[2021-10-06] MEDS: metFORMIN 500 MG TAB PO SCH ×2 (08:31→17:49)
[2021-10-06] MEDS: FENOFIBRATE 48 MG TAB PO SCH (08:32)
[2021-10-06] MEDS: lisinopriL 20 MG TAB PO SCH (08:33)
[2021-10-06] MEDS: PANTOPRAZOLE 40 MG TABEC PO SCH (08:33)
[2021-10-06] MEDS: METOPROLOL 25 MG TAB PO SCH ×2 (08:33→20:30)
[2021-10-06] MEDS: NIACIN 500 MG TAB PO SCH ×2 (08:43→20:30)
--- NOTE | 2021-10-06 09:38 | NUR ---
PT. ALERT, AWAKE. STABLE ON ROOM AIR. NOT IN DISTRESS NOTED. DENIED ANY CHEST PAIN OR DISCOMFORT. ADMINISTERED SCHEDULED MEDICATION. PT. TOLERATED WELL. ALL SAFETY MEASURES IN PLACE. WILL CONTINUE TO MONITOR THE PT.
[2021-10-06 12:00] VITALS: BP 131/87
[2021-10-06] MEDS: NACL 0.9% 1,000 ML IV SCH ×3 (12:13→23:12)
[2021-10-06 12:35] LABS: ANION GAP 11.5 (8-16); CREATININE 1.2 mg/dL (0.6-1.3); PHOSPHORUS 3.2 mg/dL (2.5-4.9); POTASSIUM 4.5 mmol/L (3.5-5.1)
--- NOTE | 2021-10-06 12:35 | NUR ---
MADE ROUND. PT. ALERT, STABLE, SITTING IN THE BED. TALKING ON PHONE. NO ANY ACUTE DISTRESS NOTED. DENIED ANY PAIN OR DISCOMFORT. CALL LIGHT WITHIN REACH. WILL CONTINUE TO MONITOR THE PT.
--- NOTE | 2021-10-06 14:45 | NUR ---
PT. COMFORTABLY RESTING IN THE BED. NO ANY ACUTE DISTRESS NOTED. DENIED ANY PAIN OR DISCOMFORT. STABLE ON ROOM AIR. CALL LIGHT WITHIN REACH. WILL CONTINUE TO MONITOR THE PT.
--- NOTE | 2021-10-06 14:52 | NUR ---
DC PLANNING: THE PATIENT ADMITTED THROUGH THE ER WITH C/O RADIATING CHEST PAIN. H/O DM, HTN AND HYPERLIPIDEMIA, TROPONIN WNL'S, CR AT 1.2. CARDIOLOGY AND NEPHROLOGY CONSULTS ORDERED. CM SPOKE WITH THE PATIENT AT BEDSIDE AND CONFIRMED HIS ADDRESS AND PHONE NUMBER PER HIS FACE SHEET. THE PATIENT RENTS A ROOM IN A HOUSE AND HAS LIVED THERE FOR FIVE YEARS. 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 HE IS NORMALLY ACTIVE AND INDEPENDENT, NO DME EXCEPT FOR A GLUCOMETER, NO H/O HOME HEALTH. PATIENT STATES HE'S OUT OF STRIPS FOR HIS GLUCOMETER AND CAN'T AFFORD HIS DM MEDS YET ALSO STATES HE HAS HIS [place] COVID CARD AND GOOD RX CARD AND DOESN'T HAVE AN OUT OF POCKET COST FOR PRESCRIPTIONS. SOMETIMES GOES TO [facility] ON [address], HASN'T BEEN THERE FOR FIVE MONTHS. PATIENT TO DC HOME WHEN CLINICALLY STABLE AND F/U WITH HIS NORMAL CLINIC. CM WILL FOLLOW. Addendum: 10/06/21 at 1549 by Lila De La Cruz CM Amended: Links added.
[2021-10-06 15:21] LABS: APPEARANCE,URINE CLEAR (CLEAR); BILIRUBIN,URINE NEGATIVE (NEGATIVE); BLOOD, URINE 1+ (NEGATIVE); COLOR,URINE YELLOW (YELLOW); LEUKOCYTE ESTERASE ,URINE NEGATIVE (NEGATIVE); NITRITE, URINE NEGATIVE (NEGATIVE); UGLUCOSE NEGATIVE (NEGATIVE)
--- NOTE | 2021-10-06 15:47 | NUR ---
PATIENT HAS BEEN SCREENED AND CATEGORIZED LOW NUTRITION RISK. PATIENT WILL BE SEEN WITHIN 7 DAYS OF ADMISSION. 10/12/[address]
[2021-10-06 15:59] LABS: WBC,URINE NONE SEEN /HPF (0-5)
[2021-10-06 16:00] VITALS: BP 129/89
--- NOTE | 2021-10-06 17:36 | NUR ---
PT. ALERT,AWAKE. STABLE ON ROOM AIR. NO DISTRESS NOTED. DENIES ANY PAIN OR DISCOMFORT. ALL SAFETY MEASURES IN PLACE. CALL LIGHT WITHIN REACH. WILL CONTINUE TO MONITOR THE PT.
--- NOTE | 2021-10-06 19:30 | NUR ---
RECEIVED REPORT FROM DAY SHIFT NURSE FOR CONTINUITY OF CARE. PT AWAKE, ALERT AND ORIENTED., WATCHING TV. ON ROOM AIR.BREATHING EQUAL AND UNLABORED. NO COMPLAINS OF PAIN. IV ON R AC G18 INFUSING WELL. ALL PRECAUTIONS IN PLACE. CALL LIGHT WITHIN REACH. WILL CONTINUE TO MONITOR.
[2021-10-06 20:00] VITALS: BP 135/92
[2021-10-06] MEDS ORDERED: ATORVASTATIN 20 MG TAB PO SCH (21:00)
--- NOTE | 2021-10-06 21:00 | NUR ---
SCHEDULED MEDICATIONS GIVEN. PT TOLERATED WELL. NO DISTRESS NOTED. WILL CONTINUE TO MONITOR.
--- NOTE | 2021-10-06 22:11 | NUR ---
CALLED REGARDING PENDING UA RESULTS. FOLLOWED WITH LAB AND TOLD ME THAT SPECIMEN WAS SENT TO [place] FOR TESTING AND AWAITING RESULTS.
[2021-10-06 23:46] LABS: CREATININE,URINE RANDOM 62 mg/dL (30-125); URINE SODIUM, RANDOM 127 mmol/l (40-220)
[2021-10-07] VITALS: BP 125/87
--- NOTE | 2021-10-07 02:47 | NUR ---
PT ASLEEP. VISIBLE CHEST RISE AND FALL NOTED.NO S/SX OF DISTRESS NOTED. ALL PRECAUTIONS IN PLACE. WILL CONTINUE TO MONITOR.
[2021-10-07 04:00] VITALS: BP 121/91
[2021-10-07 05:28] LABS: BASOPHILS % (AUTO) 0.6 % (0.0-2.0); EOSINOPHILS # (AUTO) 0.7 K/uL (0-0.4); EOSINOPHILS % (AUTO) 10.1 % (0.0-4.0); HEMATOCRIT 44.1 % (36-52); HEMOGLOBIN 14.9 g/dL (12.0-18.0); LYMPHOCYTES # (AUTO) 2.5 K/uL (2.0-11.5); LYMPHOCYTES % (AUTO) 37.5 % (20.5-51.1); MEAN CORPUSCULAR HEMOGLOBIN 30 pg (27-31); MEAN CORPUSCULAR HGB CONC 34 g/dL (33-37); MEAN CORPUSCULAR VOLUME 89.6 fL (80-94); MONOCYTES # (AUTO) 0.5 K/uL (0.8-1.0); MONOCYTES % (AUTO) 7.6 % (1.7-9.3); NEUTROPHILS % (AUTO) 44.2 % (42.2-75.2); PLATELET COUNT (AUTO) 218 K/uL (140-450); RED BLOOD CELL COUNT(AUTO) 4.92 MIL/uL (4.20-6.10); RED CELL DISTRIBUTION WIDTH 13.2 % (11.6-13.7); WHITE BLOOD COUNT (AUTO) 6.8 K/uL (4.8-10.8)
[2021-10-07 05:40] LABS: CARBON DIOXIDE 28.5 mmol/L (21-32); CREATININE 1.4 mg/dL (0.6-1.3); POTASSIUM 4.5 mmol/L (3.5-5.1)
[2021-10-07] MEDS: NACL 0.9% 1,000 ML IV SCH (06:14)
[2021-10-07] MEDS: BLOOD GLUCOSE MONITORING 1 DEV DEV FS SCH (06:14)
--- NOTE | 2021-10-07 06:39 | NUR ---
PT IS STABLE. NO ACUTE EVENTS THROUGHOUT THE NIGHT. NO S/SX OF DISTRESS OF THE MOMENT. ALL NEEDS ATTENDED. ALL PRECAUTIONS IN PLACE. WILL ENDORSE TO AM SHIFT NURSE.
[2021-10-07 07:08] LABS: T4 (THYROXINE) 7.7 ug/dL (4.5-12.0)
--- NOTE | 2021-10-07 07:20 | NUR ---
RECEIVED PATIENT FROM BOAT RIGGER FOR CONTINUITY OF CARE. PATIENT IS A/A/O X4. RESPIRATORY EVEN AND UNLABORED, ON ROOM AIR, NO SIGN OF DISTRESS NOTED. SKIN WARM, DRY, NON DIAPHORETIC. IV ON RIGHT AC 18G, INTACT AND PATENT, IS INFUSING FLUID ORDER. PATIENT DENIES ANY PAIN OR DISCOMFORT. ABLE TO MAKE NEED KNOWN. PLAN OF CARE DISCUSSED, PATIENT VERBALIZED UNDERSTANDING. PRECAUTION IN PLACE. CALL LIGHT WITHIN REACH. WILL CONTINUE TO MONITOR.
[2021-10-07 08:00] VITALS: BP 154/97
[2021-10-07] MEDS: ASPIRIN 81 MG TAB.CHEW PO SCH (08:36)
[2021-10-07] MEDS: PANTOPRAZOLE 40 MG TABEC PO SCH (08:36)
[2021-10-07] MEDS: FENOFIBRATE 48 MG TAB PO SCH (08:36)
[2021-10-07] MEDS: lisinopriL 20 MG TAB PO SCH (08:37)
[2021-10-07] MEDS: NIACIN 500 MG TAB PO SCH (08:37)
[2021-10-07] MEDS: metFORMIN 500 MG TAB PO SCH (08:37)
[2021-10-07] MEDS: METOPROLOL 25 MG TAB PO SCH (08:38)
--- NOTE | 2021-10-07 08:46 | NUR ---
SCHEDULE MEDICATIONS GIVEN WITH EDUCATION. PATIENT VERBALIZED UNDERSTANDING. PATIENT TOLERATED WELL. NO SIGN OF DISTRESS NOTED. CALL LIGHT WITHIN REACH. WILL CONTINUE TO MONITOR.
[2021-10-07] MEDS ORDERED: ASPI81CT95 PO (09:16)
[2021-10-07] MEDS ORDERED: ATOR20TA40 PO (09:16)
[2021-10-07] MEDS ORDERED: LISI-487 PO (09:16)
[2021-10-07] MEDS ORDERED: METO25TA PO (09:16)
[2021-10-07] MEDS ORDERED: TRI48 PO (09:16)
[2021-10-07] MEDS ORDERED: [UNRECOGNIZED DRUG - CODE] PO (09:16)
[2021-10-07] MEDS ORDERED: OMEP40EC24 PO (09:16)
[2021-10-07] MEDS ORDERED: METF-1022 PO (09:18)
--- NOTE | 2021-10-07 10:40 | NUR ---
DISCHARGE EDUCATION GIVEN WITH HANDOUT. PATIENT VERBALIZED UNDERSTANDING. A/A/O X4, RESPIRATORY EVEN AND UNLABORED, ON ROOM AIR. IV REMOVED, BLEEDING CONTROL. ID BAND REMOVED.
--- NOTE | 2021-10-07 10:48 | NUR ---
PATIENT AMBULATE INDEPENDENTLY WITH STEADY GAIT TO LOBBY. NO SIGN OF DISTRESS NOTED.
== END 2021-10-07 10:48 | disposition home or self-care (01) | DRG 469 ==
LOC: MED 18:47 → MTU 21:32
PROVIDERS: ADMIT Family Medicine; ATTEND Family Medicine
DX: N17.0 Acute kidney failure with tubular necrosis (principal); E11.22 Type 2 diabetes mellitus with diabetic chronic kidney disease; E83.42 Hypomagnesemia; E78.00 Pure hypercholesterolemia, unspecified; R07.89 Other chest pain; N18.9 Chronic kidney disease, unspecified; I12.9 Hypertensive chronic kidney disease with stage 1 through stage 4 chronic kidney disease, or unspecified chronic kidney disease; E86.0 Dehydration; E78.5 Hyperlipidemia, unspecified; Z20.822 Contact with and (suspected) exposure to COVID-19; H54.61 Unqualified visual loss, right eye, normal vision left eye; E66.3 Overweight; Z68.36 Body mass index [BMI] 36.0-36.9, adult; Z79.899 Other long term (current) drug therapy; Z79.82 Long term (current) use of aspirin
CPT/HCPCS: 36415; 71045; 76770; 80048; 80053; 80305; 81001; 82150; 82570; 82948; 83036; 83690; 83735; 83880; 84100; 84300; 84436; 84439; 84443; 84479; 84484; 85025; 85610; 85730; 87081; 93005; 96360; 99285; J1644; J7030; Q0092

== ENCOUNTER 2021-10-11 12:15 | Emergency (ER) | payer MEDICAID, SELFPAY ==
[~2021-10-11] VITALS: Ht 170.2 cm; Wt 98.0 kg
[~2021-10-11 12:15] MED LIST changes: -BACL10TA4 PO; -CLON0.1T15 PO; -CYCL-711 PO; -ERYT5OIN58 OP; -IBUP-2213 PO; -LISI40TA12 PO; -MENT90CR TP; +METF-1022 PO; -METF1000 PO; -NAPR-54 PO; -PANT40EC PO
[2021-10-11 12:26] VITALS: BP 147/99
[2021-10-11] MEDS ORDERED: KETOROLAC 30 MG/ML VIAL IM ONE (12:55)
--- NOTE | 2021-10-11 13:02 | NUR ---
51 Y/O MALE C/O RIGHT FOOT PAIN 10/10 DESCRIBES SHARP WORST WITH WALKING. DENIES N/V. DENIES FEVER/CHILLS. RED BUMP NOTED ON PATIENT R FOOT. PT DENIES ANY TRAUMA TO HIS FOOT. PER PATIENT "HE WOKE UP WITH THE RED BUMP ON HIS FOOT." CAP REFILL <2 SECONDS AND PT ABLE TO MOVE HIS TOES AT THIS TIME. PMH: REJI FATIMA
--- NOTE | 2021-10-11 13:02 | NUR ---
XRAY AT BEDSIDE
[2021-10-11] MEDS ORDERED: ACET-8386 PO (13:53)
[2021-10-11] MEDS ORDERED: IBUP-2213 PO (13:53)
[2021-10-11 14:02] VITALS: BP 147/99
--- NOTE | 2021-10-11 14:03 | NUR ---
Patient discharged with v/s stable. Written and verbal after care instructions given and explained. Patient alert, oriented and verbalized understanding of instructions. Ambulatory with steady gait. All questions addressed prior to discharge. ID band removed. Patient advised to follow up with PMD. Rx of IBUPROFEN AND HYDROCONE/ACETAMINOPHEN given. Patient educated on indication of medication including possible reaction and side effects. Opportunity to ask questions provided and answered.
== END 2021-10-11 14:02 | disposition home or self-care (01) ==
LOC: MED 12:15
DX: M79.671 Pain in right foot (principal); N52.9 Male erectile dysfunction, unspecified; E11.9 Type 2 diabetes mellitus without complications; Z79.899 Other long term (current) drug therapy
CPT/HCPCS: 73630; 96372; 99283; J1885

== ENCOUNTER 2021-10-18 21:25 | Emergency (ER) | payer MEDICAID ==
[~2021-10-18] VITALS: Ht 170.2 cm; Wt 98.9 kg
[~2021-10-18 21:25] MED LIST changes: +IBUP-2213 PO
[2021-10-18 21:42] VITALS: BP 143/106
[2021-10-18] MEDS ORDERED: KETOROLAC 60 MG/2 ML VIAL IM ONE (22:05)
[2021-10-18] MEDS ORDERED: IBUP-2213 PO (22:31)
[2021-10-18 22:49] VITALS: BP 143/106
== END 2021-10-18 22:49 | disposition home or self-care (01) ==
LOC: MED 21:25
DX: R07.89 Other chest pain (principal); E11.9 Type 2 diabetes mellitus without complications; I10 Essential (primary) hypertension; Z98.890 Other specified postprocedural states; Z79.899 Other long term (current) drug therapy; Z79.82 Long term (current) use of aspirin; Z79.84 Long term (current) use of oral hypoglycemic drugs
CPT/HCPCS: 93005; 96372; 99283; J1885

== ENCOUNTER 2021-12-14 19:18 | Emergency (ER) | payer MEDICAID ==
[~2021-12-14] VITALS: Ht 170.2 cm; Wt 90.7 kg
[~2021-12-14 19:18] MED LIST changes: -METF-1022 PO; +METF-1253 PO
[2021-12-14 19:43] VITALS: BP 158/110
--- NOTE | 2021-12-14 20:24 | NUR ---
PATIENT LEFT WITHOUT BEING SEEN BY DR. KUMAR. NO FURTHER CARE PROVIDED FOR PATIENT.
== END 2021-12-14 20:24 | disposition left against medical advice (07) ==
LOC: MED 19:18
DX: R51.9 Headache, unspecified (principal); R42 Dizziness and giddiness; Z53.21 Procedure and treatment not carried out due to patient leaving prior to being seen by health care provider; E11.9 Type 2 diabetes mellitus without complications; I10 Essential (primary) hypertension

== ENCOUNTER 2021-12-20 23:32 | Inpatient (IN) | payer MEDICAID ==
[~2021-12-20] VITALS: Ht 170.2 cm; Wt 101.6 kg
[2021-12-21] MEDS ORDERED: ASPIRIN 325 MG TAB PO ONE (00:50)
[2021-12-21] MEDS ORDERED: NITROGLYCERIN 0.4 MG TAB SL ONE ×3 (00:50→02:25)
[2021-12-21 01:04] LABS: BASOPHILS % (AUTO) 0.7 % (0.0-2.0); EOSINOPHILS # (AUTO) 0.2 K/uL (0-0.4); EOSINOPHILS % (AUTO) 3.6 % (0.0-4.0); HEMATOCRIT 48.9 % (36-52); HEMOGLOBIN 16.6 g/dL (12.0-18.0); LYMPHOCYTES # (AUTO) 2.3 K/uL (2.0-11.5); LYMPHOCYTES % (AUTO) 32.7 % (20.5-51.1); MEAN CORPUSCULAR HEMOGLOBIN 31 pg (27-31); MEAN CORPUSCULAR HGB CONC 34 g/dL (33-37); MEAN CORPUSCULAR VOLUME 90.2 fL (80-94); MONOCYTES # (AUTO) 0.5 K/uL (0.8-1.0); MONOCYTES % (AUTO) 7.1 % (1.7-9.3); NEUTROPHILS # (AUTO) 3.8 K/uL (1.8-7.7); NEUTROPHILS % (AUTO) 55.9 % (42.2-75.2); PLATELET COUNT (AUTO) 221 K/uL (140-450); RED BLOOD CELL COUNT(AUTO) 5.42 MIL/uL (4.20-6.10); RED CELL DISTRIBUTION WIDTH 13.2 % (11.6-13.7); WHITE BLOOD COUNT (AUTO) 6.9 K/uL (4.8-10.8)
[2021-12-21 01:05] VITALS: BP 146/105
--- NOTE | 2021-12-21 01:05 | NUR ---
51 Y/O MALE BIBS FROM HOME, C/O CP X2 HRS, DIAPHORETIC, +N/V. 04/17. A/O X4, GCS-15. DENIES SOB, COUGH, OR FEVER. SKIN IS NORMAL, WARM, AND DIAPHORETIC. UNLABORED BREATHING AND SPEAKING IN FULL SENTENCES. PT ABLE TO AMBULATE W/O ASSISTANCE. PT SEATED IN BED WITH HOB RAISED, BED IN LOWEST SETTING, AND RAIL UP X1. HX: HTN, DM NKA CANNOT REMEMBER NAMES OF MEDS
[2021-12-21 01:27] LABS: ALBUMIN 3.3 g/dL (3.4-5.0); ASPARTATE AMINOTRANSFERASE 15 U/L (15-37); CARBON DIOXIDE 23.1 mmol/L (21-32); CHLORIDE 106 mmol/L (98-107); CREATININE 1.5 mg/dL (0.6-1.3); GFR ARICAN-AMERICAN 64 mL/min (>90); GLUCOSE 121 mg/dL (74-106); POTASSIUM 4.1 mmol/L (3.5-5.1); SODIUM SERUM 138 mmol/L (136-145); TOTAL BILIRUBIN 0.4 mg/dL (0.0-1.0); UREA NITROGEN, BLOOD 29 mg/dL (7-18)
--- NOTE | 2021-12-21 02:26 | NUR ---
XRAY AT BEDSIDE
[2021-12-21] MEDS ORDERED: METF-1061 PO (03:35)
[2021-12-21] MEDS ORDERED: LISI40TA12 PO (03:35)
--- NOTE | 2021-12-21 03:49 | NUR ---
Patient appears to be resting comfortably in bed. Respirations even and unlabored.
--- NOTE | 2021-12-21 04:08 | NUR ---
Patient will be admitted to care of Dr. Leiva. Admited to Tele. Will go to room 106B. Belongings list completed. Report to Gustavo.
--- NOTE | 2021-12-21 04:10 | NUR ---
PT TRANSPORTED VIA GURNEY FROM ER. PT IS AAOX4. PT IS ON RA SATING 95%. PT CAME IN FOR CHEST PAIN. PT STATES CHEST PAIN IS 3/10 CURRENTLY. NO OTHER COMPLAINS. PT HAS 20 GAUGE ON LEFT AC. PT EDUCATED CONTACT LENS ASSISTANT LIGHT SYSTEM. ALL SAFETY MEASURES TAKEN. WILL CONTINUE TO MONITOR THE PT.
[2021-12-21 04:26] VITALS: BP 123/85
--- NOTE | 2021-12-21 06:05 | NUR ---
PT IS SLEEPING IN BED COMFORTABLY. PT IS NOT IN ANY DISTRESS. BREATHING EVEN AND UNLABORED. CALL LIGHT WITHIN REACH. ALL SAFETY MEASURES TAKEN. WILL CONTINUE TO MONITOR THE PT.
--- NOTE | 2021-12-21 07:22 | NUR ---
ENDORSED PT TO DAY SHIFT RN FOR CONTINUITY OF CARE. PT IS STABLE.
--- NOTE | 2021-12-21 07:41 | NUR ---
GOT REPORT FROM THE NIGHT NURSE PAT RESTING IN BED , SAYS NO PAIN.[id number]
[2021-12-21 08:00] VITALS: BP 131/81
[2021-12-21] MEDS ORDERED: LORazepam 2 MG/ML VIAL IM/IVP PRN (10:25)
[2021-12-21] MEDS ORDERED: ACETAMINOPHEN 325 MG TAB PO PRN (10:25)
[2021-12-21] MEDS ORDERED: HYDROcodone/APAP 5/325 MG 1 TAB TAB PO PRN (10:25)
[2021-12-21] MEDS ORDERED: NACL 0.9% 1,000 ML IV SCH (10:25)
[2021-12-21] MEDS ORDERED: POTASSIUM CHLORIDE 10 MEQ TABER PO PRN (10:25)
[2021-12-21] MEDS ORDERED: DOCUSATE SODIUM 100 MG GELCAP PO PRN (10:25)
[2021-12-21] MEDS ORDERED: ZOLPIDEM 5 MG TAB PO PRN (10:25)
[2021-12-21] MEDS ORDERED: ONDANSETRON 4 MG/2 ML VIAL IM/IVP PRN (10:25)
[2021-12-21] MEDS ORDERED: MAG SULF 2000 MG/WATER PREMIX 50 ML IV PRN (10:25)
[2021-12-21] MEDS ORDERED: NITROGLYCERIN 0.4 MG TAB SL PRN (10:30)
[2021-12-21 10:49] LABS: PROTHROMBIN TIME 9.5 secs (10.8-13.4)
[2021-12-21 10:56] LABS: CHOL/HDL RATIO 5.7 (1-4.5); THYROID STIMULATING HORMONE 1.17 uIU/mL (0.34-3.74)
[2021-12-21 12:00] VITALS: BP 116/77
[2021-12-21] MEDS ORDERED: LACTULOSE 20 GM/30 ML UDC PO SCH (12:53)
[2021-12-21] MEDS ORDERED: voltaren gel TP (12:55)
[2021-12-21] MEDS ORDERED: ASPI81CT95 PO (12:55)
[2021-12-21] MEDS ORDERED: ATOR20TA40 PO (12:55)
[2021-12-21] MEDS ORDERED: METO25TA PO (12:55)
[2021-12-21 13:37] VITALS: BP 116/77
[2021-12-21 13:44] VITALS: BP 116/77
--- NOTE | 2021-12-21 16:11 | NUR ---
pt discharged, discharge instruction given , IV and ID band removed.[email or web address]
--- NOTE | 2021-12-21 16:11 | NUR ---
DC PLANNING: THE PATIENT PRESENTED TO ED FROM HOME WITH C/O CHEST PAIN RADIATING TO LEFT SHOULDER AND N/V AND DIZZINESS. H/O NIDDM, HTN AND RIGHT EYE TRAUMA. B/P 146/105, BUN 29, CR 1.5, AMMONIA 40. GIVEN NITROSTAT AND ASA IN ED, CONSULTS WITH NEPRHO AND CARDIOLOGY ORDERED. EKG NEGATIVE FOR FINDINGS, CARDIOLOGY RECOMMENDATION FOR OP MEDICATIONS AND F/U. NEPHROLOGY ALSO RECOMMENDED OP F/U, PATIENT CLEARED TO DC HOME. CM WILL FOLLOW.
[2021-12-21] MEDS ORDERED: metFORMIN 500 MG TAB PO SCH (17:00)
[2021-12-21] MEDS ORDERED: ATORVASTATIN 20 MG TAB PO SCH (21:00)
[2021-12-21] MEDS ORDERED: METOPROLOL 25 MG TAB PO SCH (21:00)
[2021-12-22] MEDS ORDERED: lisinopriL 20 MG TAB PO SCH (09:00)
[2021-12-22] MEDS ORDERED: ASPIRIN 81 MG TAB.CHEW PO SCH (09:00)
[2021-12-22 09:07] LABS: T4 (THYROXINE) 7.3 ug/dL (4.5-12.0)
== END 2021-12-21 16:00 | disposition home or self-care (01) | DRG 203 ==
LOC: MED 23:32 → MTU 12-21 03:35
DX: M94.0 Chondrocostal junction syndrome [Tietze] (principal); N17.0 Acute kidney failure with tubular necrosis; E44.1 Mild protein-calorie malnutrition; K72.90 Hepatic failure, unspecified without coma; E11.22 Type 2 diabetes mellitus with diabetic chronic kidney disease; E78.5 Hyperlipidemia, unspecified; I12.9 Hypertensive chronic kidney disease with stage 1 through stage 4 chronic kidney disease, or unspecified chronic kidney disease; N18.9 Chronic kidney disease, unspecified; Z20.822 Contact with and (suspected) exposure to COVID-19; E66.9 Obesity, unspecified; I08.3 Combined rheumatic disorders of mitral, aortic and tricuspid valves; H54.61 Unqualified visual loss, right eye, normal vision left eye; Z68.35 Body mass index [BMI] 35.0-35.9, adult; Z79.899 Other long term (current) drug therapy; Z79.82 Long term (current) use of aspirin
CPT/HCPCS: 36415; 71045; 73030; 76705; 80053; 82140; 82150; 83036; 83690; 83880; 84100; 84134; 84436; 84443; 84484; 85025; 85610; 85730; 87081; 93005; 99285; Q0092

== ENCOUNTER 2022-04-26 00:14 | Emergency (ER) | payer MEDICAID ==
[~2022-04-26] VITALS: Ht 170.2 cm; Wt 101.2 kg
[~2022-04-26 00:14] MED LIST changes: -ACET-2619 PO; -ACET-8386 PO; -DICL20GE TP; -IBUP-1842 PO; -IBUP-2213 PO; -LANC-947 TP; -LISI-487 PO; +LISI40TA12 PO; -METF-1253 PO; +METF-1274 PO; -OMEP40EC24 PO; -ONDA8TAB87 PO; -TRI48 PO; -[UNRECOGNIZED DRUG - CODE] PO; +voltaren gel TP
[2022-04-26 00:20] VITALS: BP 161/112
[2022-04-26] MEDS ORDERED: CLONIDINE HYDROCHLORIDE 0.1 MG TAB PO ONE (00:30)
[2022-04-26] MEDS ORDERED: ACETAMINOPHEN EXTRA STRENGTH 500 MG TAB PO ONE (00:30)
--- NOTE | 2022-04-26 00:30 | NUR ---
51YR OLD MALE BIB SELF C/O BLANKENSHIP AND HTN. PT HAS A HX OF HTN. 03/17 PAIN LEVEL OF BLANKENSHIP. PT IS A&OX4. STATES PAIN STARTED TONIGHT . DENIES CP OR SOB. DENIES N/V. PT IS ON BEDSIDE PICK UP. HOB ELEVATED. BED AT LOWEST POSITION. PCN HTN
--- NOTE | 2022-04-26 00:33 | NUR ---
PT TAKEN TO BED 9
[2022-04-26] MEDS ORDERED: CLON0.1T16 PO (00:55)
[2022-04-26 01:30] VITALS: BP 137/99
--- NOTE | 2022-04-26 01:31 | NUR ---
Chart checked and completed. The patient's care was reviewed and supervised by Kell Elias RN.
== END 2022-04-26 01:30 | disposition home or self-care (01) ==
LOC: MED 00:14
DX: I10 Essential (primary) hypertension (principal); Z79.899 Other long term (current) drug therapy; Z79.82 Long term (current) use of aspirin
CPT/HCPCS: 99283

== ENCOUNTER 2022-05-03 17:03 | Emergency (ER) | payer MEDICAID ==
[~2022-05-03] VITALS: Ht 170.2 cm; Wt 99.8 kg
[~2022-05-03 17:03] MED LIST changes: +CLON0.1T16 PO
[2022-05-03 17:24] VITALS: BP 181/121
--- NOTE | 2022-05-03 17:30 | NUR ---
BIB SELF C/O 05/17 RIGHT FOOT PAIN X 4 DAYS. DENIES TRAUMA. BP 181/121, BLOOD SUGAR 118 AT THIS TIME. PMH: DM, HTN
--- NOTE | 2022-05-03 19:59 | NUR ---
PT TAKEN TO BED 8
--- NOTE | 2022-05-03 20:22 | NUR ---
51/M BIB SELF C/C RIGHT FOOT PAIN X4DAYS. PER PATIENT PAIN HAS EXACERBATED DUE TO WALKING AND BEING ON HIS FEET ALL DAY. PAIN IS 10/10 ND "THROBBING". APPEARS TO BE HAVING DIFFICULTY AMBULATING. PATIENT DENIES INJURY TO AREA. STATED THAT LAST TIME HE WAS HERE, HE WAS TOLD HE HAD GOUT AND GIVEN RX FOR IT. AREA NEXT TO BIG TOES APPEARS RED. PATIENT IS AAOX4 AND AMBULATED TO BED. PMHX DM, HTN -COMPLIANT WITH MEDS NKA
--- NOTE | 2022-05-03 20:53 | NUR ---
Dr. Parson examining patient.
[2022-05-03] MEDS ORDERED: KETOROLAC 60 MG/2 ML VIAL IM ONE (20:55)
[2022-05-03] MEDS ORDERED: IBUP-2213 PO (21:04)
--- NOTE | 2022-05-03 21:09 | NUR ---
PATIETN MEDICATED. TOLERATED WELL
[2022-05-03 21:20] VITALS: BP 146/98
--- NOTE | 2022-05-03 21:20 | NUR ---
Chart checked and completed.
--- NOTE | 2022-05-03 21:20 | NUR ---
Patient discharged with v/s stable. Written and verbal after care instructions given and explained. Patient alert, oriented and verbalized understanding of instructions. Ambulatory with steady gait. All questions addressed prior to discharge. ID band removed. Patient advised to follow up with PMD. Rx of IBUPROFEN given.
== END 2022-05-03 21:20 | disposition home or self-care (01) ==
LOC: MED 17:03
DX: S90.31XA Contusion of right foot, initial encounter (principal); E11.9 Type 2 diabetes mellitus without complications; I10 Essential (primary) hypertension; Z79.84 Long term (current) use of oral hypoglycemic drugs; Z79.82 Long term (current) use of aspirin; Z79.899 Other long term (current) drug therapy; X58.XXXA Exposure to other specified factors, initial encounter; Y93.89 Activity, other specified; Y92.89 Other specified places as the place of occurrence of the external cause; Y99.8 Other external cause status
CPT/HCPCS: 82948; 96372; 99283; J1885

== ENCOUNTER 2022-07-05 02:40 | Emergency (ER) | payer MEDICAID ==
[~2022-07-05 02:40] MED LIST changes: +IBUP-2213 PO
--- NOTE | 2022-07-05 03:42 | NUR ---
Patient left prior triage.
--- NOTE | 2022-07-05 03:42 | NUR ---
Called - no show in lobby or outside.
== END 2022-07-05 03:42 | disposition left against medical advice (07) ==
LOC: MED 02:40
DX: M25.519 Pain in unspecified shoulder (principal); Z53.21 Procedure and treatment not carried out due to patient leaving prior to being seen by health care provider

== ENCOUNTER 2022-07-05 06:46 | Emergency (ER) | payer MEDICAID ==
[~2022-07-05] VITALS: Ht 170.2 cm; Wt 91.6 kg
[2022-07-05 06:53] VITALS: BP 162/119
--- NOTE | 2022-07-05 07:01 | NUR ---
Patient taken to bed 8.
[2022-07-05] MEDS ORDERED: MORPHINE SULFATE 4 MG/ML SYR IM ONE (07:10)
--- NOTE | 2022-07-05 07:24 | NUR ---
XRAY AT BEDSIDE
--- NOTE | 2022-07-05 07:25 | NUR ---
51YO MALE PT C/O L SHOUDLER PAIN XYESTERDAY. STATES SUDDEN ONSET W/ PAIN ON MOVEMENT. SHOULDER NON TENDER, W/O VISIBLE INJURY. LIMITED ROM W/ DISCOMFORT. DENIES INJURY OR TAKING MEDICATION FOR PAIN. PT EXPRESSED CONCERN FOR HIGH BP AND STATES BEING COMPLIANT W/ MEDS. DENIES CHEST PAIN, N/V/D, FEVER ,CHILLS OR SOB. PT AAOX4, NO VISIBLE DISTRESS. 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
[2022-07-05 08:08] VITALS: BP 153/103
--- NOTE | 2022-07-05 08:09 | NUR ---
MD WICK MADE AWARE OF PT BP. OK FOR D/C
--- NOTE | 2022-07-05 08:13 | NUR ---
Patient discharged with v/s stable. Written and verbal after care instructions FOR SHOULDER PAIN AND HYPERTENSION given and explained. Patient verbalized understanding. Ambulatory with steady gait. All questions addressed prior to discharge. Advised to follow up with PMD.
--- NOTE | 2022-07-05 08:26 | NUR ---
Chart checked and completed. The patient's care was reviewed and supervised by Kell Elias RN.
== END 2022-07-05 08:13 | disposition home or self-care (01) ==
LOC: MED 06:46
DX: M25.512 Pain in left shoulder (principal); I10 Essential (primary) hypertension; E11.9 Type 2 diabetes mellitus without complications; Z79.4 Long term (current) use of insulin; Z79.899 Other long term (current) drug therapy
CPT/HCPCS: 71045; 93005; 96372; 99283; J2270; Q0092

== ENCOUNTER 2022-10-10 23:45 | Emergency (ER) | payer MEDICAID ==
[~2022-10-10] VITALS: Ht 170.2 cm; Wt 105.7 kg
[2022-10-10 23:56] VITALS: BP 136/92
--- NOTE | 2022-10-10 23:57 | NUR ---
Dr. Aponte examining patient in triage room.
[2022-10-11] MEDS ORDERED: KETOROLAC 30 MG/ML VIAL IM ONE
[2022-10-11] MEDS ORDERED: diazePAM 5 MG TAB PO ONE
--- NOTE | 2022-10-11 00:12 | NUR ---
PT TAKEN TO RADIOLOGY
--- NOTE | 2022-10-11 00:15 | NUR ---
PT RETURN FROM RADIOLOGY
[2022-10-11 00:33] LABS: APPEARANCE,URINE CLEAR (CLEAR); BILIRUBIN,URINE NEGATIVE (NEGATIVE); BLOOD, URINE 2+ (NEGATIVE); COLOR,URINE YELLOW (YELLOW); LEUKOCYTE ESTERASE ,URINE NEGATIVE (NEGATIVE); NITRITE, URINE NEGATIVE (NEGATIVE); PH,URINE 6.5 (5.0-9.0); UGLUCOSE TRACE (NEGATIVE)
[2022-10-11 00:59] LABS: RBC,URINE 0-5 /HPF (0-5); WBC,URINE 0-5 /HPF (0-5)
--- NOTE | 2022-10-11 02:36 | NUR ---
Dr. Aponte explained results and treatment plans.
[2022-10-11] MEDS ORDERED: NAPR-54 PO (02:41)
[2022-10-11] MEDS ORDERED: NITR100C7 PO (02:41)
[2022-10-11] MEDS ORDERED: ACET-8905 PO (02:41)
[2022-10-11 02:50] VITALS: BP 121/81
--- NOTE | 2022-10-11 02:50 | NUR ---
Patient discharged with v/s stable. Written and verbal after care instructions given and explained. Patient alert, oriented and verbalized understanding of instructions. Ambulatory with steady gait. All questions addressed prior to discharge. ID band removed. Patient advised to follow up with PMD. Rx of NAPROSYN, MACROBID,HYDROCODONE given. Patient educated on indication of medication including possible reaction and side effects. Opportunity to ask questions provided and answered.
== END 2022-10-11 02:50 | disposition home or self-care (01) ==
LOC: MED 23:45
DX: N39.0 Urinary tract infection, site not specified (principal); K40.90 Unilateral inguinal hernia, without obstruction or gangrene, not specified as recurrent; I10 Essential (primary) hypertension; E11.9 Type 2 diabetes mellitus without complications; Z79.4 Long term (current) use of insulin; Z79.899 Other long term (current) drug therapy
CPT/HCPCS: 71045; 74176; 81001; 96372; 99285; J1885

== ENCOUNTER 2022-11-15 01:46 | Emergency (ER) | payer MEDICAID ==
[~2022-11-15] VITALS: Ht 162.6 cm; Wt 102.5 kg
[~2022-11-15 01:46] MED LIST changes: +ACET-8905 PO; +NAPR-54 PO; +NITR100C7 PO
[2022-11-15 02:02] VITALS: BP 159/114
--- NOTE | 2022-11-15 02:02 | NUR ---
c/o 8 headache, weakness, and chest palpitations x 3h. pmhx diabetes hypertension. NKA.
--- NOTE | 2022-11-15 02:19 | NUR ---
pt taken to CT
[2022-11-15] MEDS ORDERED: KETOROLAC 30 MG/ML VIAL IVP ONE (03:10)
[2022-11-15] MEDS ORDERED: NACL 0.9% 1,000 ML IV ONE (03:10)
--- NOTE | 2022-11-15 03:30 | NUR ---
FIRST CONTACT WITH PT. PT RESTING, DENIES ANY PAIN AT THIS TIME. VSS. AWAITING CT RESULTS.
--- NOTE | 2022-11-15 04:30 | NUR ---
Patient appears to be resting comfortably in bed. Vital Signs within normal limits. Respirations even and unlabored.
[2022-11-15] MEDS ORDERED: IBUP-2213 PO (05:53)
[2022-11-15 06:15] VITALS: BP 138/96
== END 2022-11-15 06:15 | disposition home or self-care (01) ==
LOC: MED 01:46
DX: I10 Essential (primary) hypertension (principal); R51.9 Headache, unspecified; E11.9 Type 2 diabetes mellitus without complications; Z79.4 Long term (current) use of insulin; Z79.899 Other long term (current) drug therapy
CPT/HCPCS: 70450; 93005; 96361; 96374; 99285; J1885; J7030; 99284

== ENCOUNTER 2022-12-27 08:50 | Emergency (ER) | payer MEDICAID ==
[~2022-12-27] VITALS: Ht 170.2 cm; Wt 102.1 kg
[2022-12-27 08:53] VITALS: BP 155/104
--- NOTE | 2022-12-27 08:58 | NUR ---
URINE CUP PROVIDED.
--- NOTE | 2022-12-27 09:01 | NUR ---
AMB. TO CHAIR A W NO DIFF. NO ACUTE DISTRESS
[2022-12-27] MEDS ORDERED: LIDOCAINE 5% 1 EA PATCH TP ONE (11:25)
[2022-12-27] MEDS ORDERED: ACETAMINOPHEN EXTRA STRENGTH 500 MG TAB PO ONE (11:25)
[2022-12-27] MEDS ORDERED: KETOROLAC 30 MG/ML VIAL IM ONE (11:25)
[2022-12-27 11:48] LABS: APPEARANCE,URINE CLEAR (CLEAR); BILIRUBIN,URINE NEGATIVE (NEGATIVE); BLOOD, URINE 3+ (NEGATIVE); COLOR,URINE YELLOW (YELLOW); LEUKOCYTE ESTERASE ,URINE NEGATIVE (NEGATIVE); NITRITE, URINE NEGATIVE (NEGATIVE); UGLUCOSE TRACE (NEGATIVE)
[2022-12-27] MEDS ORDERED: NAPR-54 PO ×2 (12:34→12:55)
[2022-12-27 12:55] VITALS: BP 149/89
== END 2022-12-27 12:55 | disposition home or self-care (01) ==
LOC: MED 08:50
DX: M54.50 Low back pain, unspecified (principal); R31.29 Other microscopic hematuria; I10 Essential (primary) hypertension; E11.9 Type 2 diabetes mellitus without complications; Z79.899 Other long term (current) drug therapy; Z79.82 Long term (current) use of aspirin; Z79.1 Long term (current) use of non-steroidal anti-inflammatories (NSAID); Z79.2 Long term (current) use of antibiotics
CPT/HCPCS: 81001; 96372; 99283; J1885

== ENCOUNTER 2023-01-16 02:31 | Emergency (ER) | payer MEDICAID ==
[~2023-01-16] VITALS: Ht 170.2 cm; Wt 97.5 kg
[2023-01-16 02:38] VITALS: BP 151/109; PULSE 100; RESP 20; TEMP 97; O2SAT 93
[2023-01-16 02:58] VITALS: TEMP 97
--- NOTE | 2023-01-16 03:10 | NUR ---
Dr. Glover examining patient.
[2023-01-16] MEDS ORDERED: KETOROLAC 15 MG/ML VIAL IM ONE (03:15)
--- NOTE | 2023-01-16 03:21 | NUR ---
Dionne dee in [facility] - 01/16/23 at 0321 by MEDBM X-ray at bedside.
--- NOTE | 2023-01-16 03:21 | NUR ---
X-Ray at bedside.
[2023-01-16 04:17] LABS: BASOPHILS % (AUTO) 0.6 % (0.0-2.0); EOSINOPHILS # (AUTO) 0.2 K/uL (0-0.4); EOSINOPHILS % (AUTO) 3.7 % (0.0-4.0); HEMOGLOBIN 15.8 g/dL (12.0-18.0); LYMPHOCYTES # (AUTO) 1.9 K/uL (2.0-11.5); LYMPHOCYTES % (AUTO) 31.4 % (20.5-51.1); MEAN CORPUSCULAR HEMOGLOBIN 31 pg (27-31); MEAN CORPUSCULAR HGB CONC 34 g/dL (33-37); MEAN CORPUSCULAR VOLUME 88.7 fL (80-94); MONOCYTES # (AUTO) 0.4 K/uL (0.8-1.0); MONOCYTES % (AUTO) 7.2 % (1.7-9.3); NEUTROPHILS # (AUTO) 3.5 K/uL (1.8-7.7); NEUTROPHILS % (AUTO) 57.1 % (42.2-75.2); PLATELET COUNT (AUTO) 213 K/uL (140-450); RED BLOOD CELL COUNT(AUTO) 5.19 MIL/uL (4.20-6.10); RED CELL DISTRIBUTION WIDTH 13.1 % (11.6-13.7); WHITE BLOOD COUNT (AUTO) 6.1 K/uL (4.8-10.8)
[2023-01-16 05:01] LABS: ALBUMIN 2.9 g/dL (3.4-5.0); ANION GAP 14.2 (8-16); ASPARTATE AMINOTRANSFERASE 11 U/L (15-37); CARBON DIOXIDE 24.8 mmol/L (21-32); CHLORIDE 104 mmol/L (98-107); CREATININE 1.7 mg/dL (0.6-1.3); GFR ARICAN-AMERICAN 55 mL/min (>90); GLUCOSE 153 mg/dL (74-106); SODIUM SERUM 139 mmol/L (136-145); TOTAL BILIRUBIN 0.4 mg/dL (0.0-1.0); UREA NITROGEN, BLOOD 26 mg/dL (7-18)
[2023-01-16] MEDS ORDERED: ACET-10509 PO (05:15)
[2023-01-16] MEDS ORDERED: METH-1681 PO (05:15)
--- NOTE | 2023-01-16 05:20 | NUR ---
Patient discharged with v/s stable. Written and verbal after care instructions given and explained. Patient alert, oriented and verbalized understanding of instructions. Ambulatory with steady gait. All questions addressed prior to discharge. ID band removed. Patient advised to follow up with PMD. Rx of Tylenol and Robaxin given. Patient educated on indication of medication including possible reaction and side effects. Opportunity to ask questions provided and answered.
[2023-01-16 05:31] VITALS: BP 134/94; PULSE 95; RESP 17; O2SAT 95
== END 2023-01-16 05:20 | disposition home or self-care (01) ==
LOC: MED 02:31
DX: M25.512 Pain in left shoulder (principal); R51.9 Headache, unspecified; I10 Essential (primary) hypertension; E11.9 Type 2 diabetes mellitus without complications; E78.5 Hyperlipidemia, unspecified; Z79.899 Other long term (current) drug therapy; Z79.84 Long term (current) use of oral hypoglycemic drugs
CPT/HCPCS: 36415; 71045; 73030; 80053; 84484; 85025; 93005; 96372; 99285; J1885

== ENCOUNTER 2023-05-23 00:15 | Emergency (ER) | payer MEDICAID ==
[~2023-05-23] VITALS: Ht 170.2 cm; Wt 98.9 kg
[~2023-05-23 00:15] MED LIST changes: +ACET-10509 PO; +METH-1681 PO
[2023-05-23 00:36] VITALS: BP 128/86; PULSE 111; RESP 20; TEMP 98; O2SAT 98
[2023-05-23] MEDS ORDERED: ACETAMINOPHEN EXTRA STRENGTH 500 MG TAB PO ONE (02:20)
== END 2023-05-23 03:33 | disposition left against medical advice (07) ==
LOC: MED 00:15
DX: M54.9 Dorsalgia, unspecified (principal); R07.9 Chest pain, unspecified; I10 Essential (primary) hypertension; E11.9 Type 2 diabetes mellitus without complications; Z98.890 Other specified postprocedural states; Z79.899 Other long term (current) drug therapy; Z79.1 Long term (current) use of non-steroidal anti-inflammatories (NSAID); Z79.2 Long term (current) use of antibiotics; Z79.82 Long term (current) use of aspirin
CPT/HCPCS: 93005; 99283

== ENCOUNTER 2023-06-05 00:22 | Emergency (ER) | payer MEDICAID ==
[~2023-06-05] VITALS: Ht 167.6 cm; Wt 102.5 kg
[2023-06-05 00:41] VITALS: BP 150/99; PULSE 97; RESP 22; TEMP 97; O2SAT 96
[2023-06-05 00:57] VITALS: BP 137/83; PULSE 95; RESP 20; TEMP 97
[2023-06-05 01:06] VITALS: O2SAT 99
[2023-06-05] MEDS ORDERED: ONDANSETRON 4 MG/2 ML VIAL IVP ONE (01:40)
[2023-06-05] MEDS ORDERED: MORPHINE SULFATE 4 MG/ML SYR IVP ONE (01:40)
[2023-06-05] MEDS ORDERED: NACL 0.9% 1,000 ML IV ONE (01:40)
[2023-06-05 01:58] LABS: BASOPHILS % (AUTO) 0.7 % (0.0-2.0); EOSINOPHILS # (AUTO) 0.1 K/uL (0-0.4); EOSINOPHILS % (AUTO) 0.9 % (0.0-4.0); HEMATOCRIT 48.3 % (36-52); HEMOGLOBIN 16.2 g/dL (12.0-18.0); LYMPHOCYTES % (AUTO) 32.4 % (20.5-51.1); MEAN CORPUSCULAR HEMOGLOBIN 31 pg (27-31); MEAN CORPUSCULAR HGB CONC 34 g/dL (33-37); MEAN CORPUSCULAR VOLUME 90.9 fL (80-94); MONOCYTES # (AUTO) 0.2 K/uL (0.8-1.0); MONOCYTES % (AUTO) 3.9 % (1.7-9.3); NEUTROPHILS # (AUTO) 3.9 K/uL (1.8-7.7); NEUTROPHILS % (AUTO) 62.1 % (42.2-75.2); PLATELET COUNT (AUTO) 218 K/uL (140-450); RED BLOOD CELL COUNT(AUTO) 5.32 MIL/uL (4.20-6.10); RED CELL DISTRIBUTION WIDTH 12.8 % (11.6-13.7); WHITE BLOOD COUNT (AUTO) 6.2 K/uL (4.8-10.8)
[2023-06-05 02:08] LABS: ALBUMIN 3.1 g/dL (3.4-5.0); ANION GAP 16.1 (8-16); CALCIUM 7.7 mg/dL (8.5-10.1); CARBON DIOXIDE 21.6 mmol/L (21-32); CREATININE 1.7 mg/dL (0.6-1.3); POTASSIUM 3.7 mmol/L (3.5-5.1); TOTAL BILIRUBIN 0.4 mg/dL (0.0-1.0); TOTAL PROTEIN, SERUM 6.8 g/dL (6.4-8.2)
[2023-06-05 02:36] LABS: APPEARANCE,URINE CLEAR (CLEAR); BILIRUBIN,URINE NEGATIVE (NEGATIVE); BLOOD, URINE 1+ (NEGATIVE); COLOR,URINE YELLOW (YELLOW); LEUKOCYTE ESTERASE ,URINE NEGATIVE (NEGATIVE); NITRITE, URINE NEGATIVE (NEGATIVE); PH,URINE 5.5 (5.0-9.0); PROTEIN,URINE 3+ (NEGATIVE); UGLUCOSE NEGATIVE (NEGATIVE); UROBILINOGEN,URINE 0.2 EU/dL (0.2 - 1)
[2023-06-05 02:48] LABS: BACTERIA,URINE 1+ /HPF (None Seen); FINE GRANULAR CASTS,URINE 0-1 /LPF (None Seen); HYALINE CASTS, URINE 0-2 /LPF (None Seen); RBC,URINE 0-5 /HPF (0-5); SQUAMOUS EPITHELIAL CELL,UR 0-3 (FEW) /LPF (0-3 (FEW)); WBC,URINE 0-5 /HPF (0-5)
[2023-06-05] MEDS ORDERED: NAPR-54 PO (05:55)
== END 2023-06-05 06:00 | disposition home or self-care (01) ==
LOC: MED 00:22
DX: M54.50 Low back pain, unspecified (principal); M54.6 Pain in thoracic spine; E11.9 Type 2 diabetes mellitus without complications; I10 Essential (primary) hypertension; Z79.4 Long term (current) use of insulin; Z79.899 Other long term (current) drug therapy
CPT/HCPCS: 36415; 71250; 74176; 80053; 81001; 85025; 87086; 96361; 96374; 96375; 99285; J2270; J2405; J7030

== ENCOUNTER 2023-07-08 19:23 | Emergency (ER) | payer MEDICAID ==
[~2023-07-08] VITALS: Ht 170.2 cm; Wt 102.1 kg
[2023-07-08 19:25] VITALS: BP 155/110; PULSE 92; RESP 19; TEMP 98.7; O2SAT 94
[2023-07-08 19:35] VITALS: BP 155/110; PULSE 92; RESP 19; TEMP 98.7; O2SAT 94
[2023-07-08] MEDS ORDERED: KETOROLAC 60 MG/2 ML VIAL IM ONE (20:35)
[2023-07-08] MEDS ORDERED: IBUP-2213 PO (21:04)
[2023-07-08] MEDS ORDERED: CEPH-588 PO (21:04)
== END 2023-07-08 21:14 | disposition home or self-care (01) ==
LOC: MED 19:23
DX: L03.311 Cellulitis of abdominal wall (principal); E11.9 Type 2 diabetes mellitus without complications; I10 Essential (primary) hypertension; Z79.4 Long term (current) use of insulin; Z79.899 Other long term (current) drug therapy
CPT/HCPCS: 81002; 96372; 99283; J1885

== ENCOUNTER 2023-07-10 20:56 | Emergency (ER) | payer MEDICAID ==
[~2023-07-10] VITALS: Ht 170.2 cm; Wt 105.7 kg
[~2023-07-10 20:56] MED LIST changes: +CEPH-588 PO
[2023-07-10 21:19] VITALS: BP 156/89; PULSE 111; RESP 20; TEMP 97.8; O2SAT 95
[2023-07-10 22:26] LABS: BASOPHILS % (AUTO) 0.6 % (0.0-2.0); EOSINOPHILS # (AUTO) 0.2 K/uL (0-0.4); EOSINOPHILS % (AUTO) 2.3 % (0.0-4.0); HEMATOCRIT 47.2 % (36-52); HEMOGLOBIN 16.2 g/dL (12.0-18.0); LYMPHOCYTES # (AUTO) 1.8 K/uL (2.0-11.5); LYMPHOCYTES % (AUTO) 26.3 % (20.5-51.1); MEAN CORPUSCULAR HEMOGLOBIN 31 pg (27-31); MEAN CORPUSCULAR HGB CONC 34 g/dL (33-37); MEAN CORPUSCULAR VOLUME 89.8 fL (80-94); MONOCYTES # (AUTO) 0.4 K/uL (0.8-1.0); MONOCYTES % (AUTO) 5.8 % (1.7-9.3); NEUTROPHILS # (AUTO) 4.4 K/uL (1.8-7.7); PLATELET COUNT (AUTO) 228 K/uL (140-450); RED BLOOD CELL COUNT(AUTO) 5.26 MIL/uL (4.20-6.10); RED CELL DISTRIBUTION WIDTH 12.8 % (11.6-13.7); WHITE BLOOD COUNT (AUTO) 6.7 K/uL (4.8-10.8)
[2023-07-10 22:53] LABS: ALBUMIN 3.1 g/dL (3.4-5.0); ANION GAP 17.8 (8-16); CALCIUM 7.6 mg/dL (8.5-10.1); CARBON DIOXIDE 20.5 mmol/L (21-32); POTASSIUM 4.3 mmol/L (3.5-5.1); TOTAL BILIRUBIN 0.5 mg/dL (0.0-1.0); TOTAL PROTEIN, SERUM 7.1 g/dL (6.4-8.2)
[2023-07-11] MEDS ORDERED: KETOROLAC 60 MG/2 ML VIAL IM ONE (00:05)
[2023-07-11] MEDS ORDERED: IBUP-2213 PO (00:08)
[2023-07-11 00:34] VITALS: BP 147/74; PULSE 79; RESP 18; TEMP 97.8; O2SAT 100
== END 2023-07-11 00:34 | disposition home or self-care (01) ==
LOC: MED 20:56
DX: R07.89 Other chest pain (principal); E11.9 Type 2 diabetes mellitus without complications; I10 Essential (primary) hypertension; Z79.4 Long term (current) use of insulin; Z79.899 Other long term (current) drug therapy
CPT/HCPCS: 36415; 71045; 80053; 83880; 84484; 85025; 93005; 96372; 99285; J1885

== ENCOUNTER 2023-07-30 15:50 | Emergency (ER) | payer MEDICAID ==
[~2023-07-30] VITALS: Ht 170.2 cm; Wt 111.1 kg
[2023-07-30 16:19] VITALS: BP 169/127; PULSE 110; RESP 15; TEMP 98.4; O2SAT 96
[2023-07-30] MEDS ORDERED: NAPR-1704 PO (17:39)
[2023-07-30] MEDS ORDERED: ONDA-188 SL (17:39)
[2023-07-30 17:54] LABS: APPEARANCE,URINE CLEAR (CLEAR); BILIRUBIN,URINE NEGATIVE (NEGATIVE); BLOOD, URINE 3+ (NEGATIVE); COLOR,URINE YELLOW (YELLOW); LEUKOCYTE ESTERASE ,URINE NEGATIVE (NEGATIVE); NITRITE, URINE NEGATIVE (NEGATIVE); PROTEIN,URINE 3+ (NEGATIVE); UGLUCOSE TRACE (NEGATIVE); UROBILINOGEN,URINE 0.2 EU/dL (0.2 - 1)
[2023-07-30 18:25] LABS: RBC,URINE 20-50 /HPF (0-5); WBC,URINE 0-5 /HPF (0-5)
[2023-07-30 18:26] LABS: BACTERIA,URINE FEW /HPF (None Seen); MUCUS,URINE 1+ /LPF (None Seen); SQUAMOUS EPITHELIAL CELL,UR 0-3 (FEW) /LPF (0-3 (FEW))
[2023-07-30] MEDS: NACL 0.9% 1,000 ML IV ONE (18:35)
[2023-07-30] MEDS ORDERED: KETOROLAC 30 MG/ML VIAL ONE (18:36)
[2023-07-30] MEDS: KETOROLAC 30 MG/ML VIAL IVP ONE (18:42)
[2023-07-30 19:30] VITALS: BP 155/99; PULSE 102; RESP 15; TEMP 98.4; O2SAT 96
== END 2023-07-30 19:30 | disposition home or self-care (01) ==
LOC: MED 15:50
DX: K40.20 Bilateral inguinal hernia, without obstruction or gangrene, not specified as recurrent (principal); N40.0 Benign prostatic hyperplasia without lower urinary tract symptoms; N32.89 Other specified disorders of bladder; Z79.899 Other long term (current) drug therapy
CPT/HCPCS: 74176; 81001; 87086; 96361; 96374; 99285; J1885; J7030

== ENCOUNTER 2023-08-21 21:13 | Emergency (ER) | payer MEDICAID ==
[~2023-08-21] VITALS: Ht 167.6 cm; Wt 105.3 kg
[~2023-08-21 21:13] MED LIST changes: +NAPR-1704 PO; +ONDA-188 SL
[2023-08-21 22:05] VITALS: BP 134/78; PULSE 113; RESP 19; TEMP 97.7; O2SAT 96
[2023-08-22] MEDS ORDERED: KETOROLAC 30 MG/ML VIAL IM ONE (00:05)
[2023-08-22 00:15] LABS: BASOPHILS # (AUTO) 0.1 K/uL (0.00-0.22); BASOPHILS % (AUTO) 0.7 % (0.0-2.0); EOSINOPHILS # (AUTO) 0.3 K/uL (0-0.4); EOSINOPHILS % (AUTO) 4.3 % (0.0-4.0); HEMATOCRIT 43.7 % (36-52); HEMOGLOBIN 15.1 g/dL (12.0-18.0); LYMPHOCYTES # (AUTO) 2.7 K/uL (2.0-11.5); LYMPHOCYTES % (AUTO) 35.6 % (20.5-51.1); MEAN CORPUSCULAR HEMOGLOBIN 31 pg (27-31); MEAN CORPUSCULAR HGB CONC 35 g/dL (33-37); MEAN CORPUSCULAR VOLUME 89.2 fL (80-94); MONOCYTES # (AUTO) 0.6 K/uL (0.8-1.0); MONOCYTES % (AUTO) 8.1 % (1.7-9.3); NEUTROPHILS # (AUTO) 3.9 K/uL (1.8-7.7); NEUTROPHILS % (AUTO) 51.3 % (42.2-75.2); PLATELET COUNT (AUTO) 246 K/uL (140-450); RED BLOOD CELL COUNT(AUTO) 4.89 MIL/uL (4.20-6.10); RED CELL DISTRIBUTION WIDTH 12.6 % (11.6-13.7); WHITE BLOOD COUNT (AUTO) 7.6 K/uL (4.8-10.8)
[2023-08-22 00:32] LABS: CALCIUM 8.1 mg/dL (8.5-10.1); CREATININE 1.8 mg/dL (0.6-1.3)
[2023-08-22 00:48] LABS: ALANINE AMINOTRANSFERASE 19 U/L (12-78); ALBUMIN 2.8 g/dL (3.4-5.0); ALKALINE PHOSPHATASE 126 U/L (50-136); ASPARTATE AMINOTRANSFERASE 3 U/L (15-37); BILIRUBIN,DIRECT 0.1 mg/dL (0.0-0.3); TOTAL BILIRUBIN 0.3 mg/dL (0.0-1.0); TOTAL PROTEIN, SERUM 7.5 g/dL (6.4-8.2)
[2023-08-22 01:38] VITALS: BP 134/90; PULSE 89; RESP 19; TEMP 97.7; O2SAT 96
== END 2023-08-22 01:38 | disposition home or self-care (01) ==
LOC: MED 21:13
DX: R00.2 Palpitations (principal); M79.602 Pain in left arm; R11.0 Nausea; E11.9 Type 2 diabetes mellitus without complications; I10 Essential (primary) hypertension; Z79.4 Long term (current) use of insulin; Z79.899 Other long term (current) drug therapy
CPT/HCPCS: 36415; 71045; 80048; 80076; 83880; 84484; 85025; 93005; 96372; 99285; J1885; Q0092

== ENCOUNTER 2023-09-25 18:50 | Emergency (ER) | payer SELFPAY ==
[~2023-09-25] VITALS: Ht 170.2 cm; Wt 97.5 kg
[2023-09-25 19:03] VITALS: BP 143/108; PULSE 104; RESP 19; TEMP 98.7; O2SAT 94
== END 2023-09-25 20:29 | disposition home or self-care (01) ==
LOC: MED 18:50
DX: I10 Essential (primary) hypertension (principal); E11.9 Type 2 diabetes mellitus without complications; Z79.4 Long term (current) use of insulin; Z79.899 Other long term (current) drug therapy
CPT/HCPCS: 99281

== ENCOUNTER 2023-10-16 19:43 | Emergency (ER) | payer SELFPAY ==
[~2023-10-16] VITALS: Ht 165.1 cm; Wt 104.8 kg
[2023-10-16 20:29] VITALS: BP 126/70; PULSE 94; RESP 18; TEMP 97.6; O2SAT 96
[2023-10-17] MEDS ORDERED: ACET-2619 PO (04:39)
[2023-10-17] MEDS ORDERED: CARB15DR61 OT (04:39)
== END 2023-10-16 22:26 | disposition home or self-care (01) ==
LOC: MED 19:43
DX: H92.01 Otalgia, right ear (principal); Z53.21 Procedure and treatment not carried out due to patient leaving prior to being seen by health care provider
CPT/HCPCS: 99281

== ENCOUNTER 2023-10-17 01:50 | Emergency (ER) | payer SELFPAY ==
[~2023-10-17] VITALS: Ht 167.6 cm; Wt 103.9 kg
[2023-10-17 02:08] VITALS: BP 100/94; PULSE 110; RESP 18; TEMP 97.9; O2SAT 98
[2023-10-17] MEDS ORDERED: ACET-2619 PO (04:39)
[2023-10-17] MEDS ORDERED: CARB15DR61 OT (04:39)
[2023-10-17] MEDS: IBUPROFEN 600 MG TAB PO ONE (04:51)
[2023-10-17] MEDS: ACETAMINOPHEN EXTRA STRENGTH 500 MG TAB PO ONE (04:53)
== END 2023-10-17 04:51 | disposition home or self-care (01) ==
LOC: MED 01:50
DX: R51.9 Headache, unspecified (principal); H61.21 Impacted cerumen, right ear; I10 Essential (primary) hypertension; E11.9 Type 2 diabetes mellitus without complications; Z79.4 Long term (current) use of insulin; Z79.899 Other long term (current) drug therapy
CPT/HCPCS: 99283

== ENCOUNTER 2023-11-05 10:49 | Inpatient (IN) | payer SELFPAY ==
[~2023-11-05] VITALS: Ht 160 cm; Wt 102.5 kg
[~2023-11-05 10:49] MED LIST changes: +ACET-2619 PO; +CARB15DR61 OT
[2023-11-05 10:58] VITALS: BP 162/115; PULSE 92; RESP 16; TEMP 98; O2SAT 99
[2023-11-05] MEDS: ONDANSETRON 4 MG/2 ML VIAL IVP ONE (11:28)
[2023-11-05] MEDS: MORPHINE SULFATE 4 MG/ML SYR IVP ONE (11:28)
[2023-11-05] MEDS: NACL 0.9% 1,000 ML IV ONE (11:31)
[2023-11-05 11:32] LABS: BASOPHILS % (AUTO) 0.6 % (0.0-2.0); EOSINOPHILS # (AUTO) 0.3 K/uL (0-0.4); EOSINOPHILS % (AUTO) 4.5 % (0.0-4.0); HEMATOCRIT 50.5 % (36-52); HEMOGLOBIN 17.3 g/dL (12.0-18.0); LYMPHOCYTES # (AUTO) 2.1 K/uL (2.0-11.5); LYMPHOCYTES % (AUTO) 31.3 % (20.5-51.1); MEAN CORPUSCULAR HEMOGLOBIN 31 pg (27-31); MEAN CORPUSCULAR HGB CONC 34 g/dL (33-37); MEAN CORPUSCULAR VOLUME 90.1 fL (80-94); MONOCYTES # (AUTO) 0.4 K/uL (0.8-1.0); MONOCYTES % (AUTO) 5.6 % (1.7-9.3); NEUTROPHILS # (AUTO) 3.9 K/uL (1.8-7.7); PLATELET COUNT (AUTO) 301 K/uL (140-450); RED CELL DISTRIBUTION WIDTH 13.2 % (11.6-13.7); WHITE BLOOD COUNT (AUTO) 6.7 K/uL (4.8-10.8)
[2023-11-05 11:32] LABS: APPEARANCE,URINE CLEAR (CLEAR); BILIRUBIN,URINE NEGATIVE (NEGATIVE); BLOOD, URINE 2+ (NEGATIVE); COLOR,URINE YELLOW (YELLOW); LEUKOCYTE ESTERASE ,URINE NEGATIVE (NEGATIVE); NITRITE, URINE NEGATIVE (NEGATIVE); PROTEIN,URINE 3+ (NEGATIVE); UGLUCOSE NEGATIVE (NEGATIVE); UROBILINOGEN,URINE 0.2 EU/dL (0.2 - 1)
[2023-11-05 11:52] LABS: ALBUMIN 3.6 g/dL (3.4-5.0); BILIRUBIN,DIRECT 0.1 mg/dL (0.0-0.3); TOTAL BILIRUBIN 0.9 mg/dL (0.0-1.0); TOTAL PROTEIN, SERUM 7.6 g/dL (6.4-8.2)
[2023-11-05 12:26] LABS: BACTERIA,URINE FEW /HPF (None Seen); MUCUS,URINE None Seen /LPF (None Seen); RBC,URINE 11-20 (MOD) /HPF (0-5); SQUAMOUS EPITHELIAL CELL,UR 0-3 (FEW) /LPF (0-3 (FEW)); TRICHOMONAS,URINE None Seen /HPF (None Seen); WBC,URINE 0-5 /HPF (0-5); YEAST,URINE None Seen /HPF (None Seen)
[2023-11-05 12:28] LABS: WHITE BLOOD CELL CASTS,URINE None Seen /LPF (None Seen)
[2023-11-05 12:35] LABS: ANION GAP 15.3 (8-16); CALCIUM 9.1 mg/dL (8.5-10.1); CARBON DIOXIDE 26.7 mmol/L (21-32); CREATININE 1.9 mg/dL (0.6-1.3)
[2023-11-05] MEDS ORDERED: ONDANSETRON 4 MG/2 ML VIAL IVP PRN (13:30)
[2023-11-05] MEDS ORDERED: ACETAMINOPHEN 325 MG TAB PO PRN (13:30)
[2023-11-05] MEDS ORDERED: ZOLPIDEM 5 MG TAB PO PRN (13:30)
[2023-11-05] MEDS ORDERED: DEXTROSE 50% 50 ML SYR IVP PRN (13:30)
[2023-11-05] MEDS: NACL 0.9% 1,000 ML IV SCH (13:30)
[2023-11-05] MEDS ORDERED: INSULIN LISPRO SLIDING SCALE 100 UNITS/ML VIAL SUBQ PRN (13:30)
[2023-11-05] MEDS ORDERED: HYDROcodone/APAP 5/325 MG 1 TAB TAB PO PRN (13:30)
[2023-11-05] MEDS ORDERED: CLONIDINE HYDROCHLORIDE 0.1 MG TAB PO PRN (13:35)
[2023-11-05] MEDS ORDERED: hydrALAZINE 20 MG/ML VIAL IVP PRN (13:40)
[2023-11-05 15:00] VITALS: PULSE 59; RESP 18; O2SAT 96
[2023-11-05 16:00] VITALS: BP 160/110; PULSE 59; RESP 18; TEMP 96.2; O2SAT 96
[2023-11-05] MEDS: BLOOD GLUCOSE MONITORING 1 DEV DEV FS SCH (16:32)
[2023-11-05 20:00] VITALS: BP 147/88; PULSE 58; PULSE 59; RESP 18; TEMP 96.5; O2SAT 96
[2023-11-05] MEDS: ATORVASTATIN 20 MG TAB PO SCH (23:01)
[2023-11-05] MEDS: METOPROLOL 25 MG TAB PO SCH (23:02)
[2023-11-06 04:00] VITALS: BP 131/83; PULSE 60; RESP 18; TEMP 96.3; O2SAT 95
[2023-11-06 05:54] LABS: BASOPHILS % (AUTO) 0.5 % (0.0-2.0); EOSINOPHILS # (AUTO) 0.7 K/uL (0-0.4); EOSINOPHILS % (AUTO) 10.3 % (0.0-4.0); HEMOGLOBIN 14.9 g/dL (12.0-18.0); LYMPHOCYTES # (AUTO) 1.9 K/uL (2.0-11.5); MEAN CORPUSCULAR HEMOGLOBIN 31 pg (27-31); MEAN CORPUSCULAR HGB CONC 34 g/dL (33-37); MEAN CORPUSCULAR VOLUME 90.9 fL (80-94); MONOCYTES # (AUTO) 0.4 K/uL (0.8-1.0); MONOCYTES % (AUTO) 5.7 % (1.7-9.3); NEUTROPHILS # (AUTO) 3.8 K/uL (1.8-7.7); NEUTROPHILS % (AUTO) 55.5 % (42.2-75.2); PLATELET COUNT (AUTO) 253 K/uL (140-450); RED BLOOD CELL COUNT(AUTO) 4.84 MIL/uL (4.20-6.10); RED CELL DISTRIBUTION WIDTH 13.4 % (11.6-13.7); WHITE BLOOD COUNT (AUTO) 6.9 K/uL (4.8-10.8)
[2023-11-06 07:41] LABS: ALBUMIN 2.9 g/dL (3.4-5.0); ANION GAP 11.9 (8-16); CALCIUM 8.2 mg/dL (8.5-10.1); CARBON DIOXIDE 24.5 mmol/L (21-32); CREATININE 1.6 mg/dL (0.6-1.3); POTASSIUM 4.4 mmol/L (3.5-5.1); TOTAL BILIRUBIN 0.5 mg/dL (0.0-1.0); TOTAL PROTEIN, SERUM 6.2 g/dL (6.4-8.2)
[2023-11-06 08:00] VITALS: BP 156/97; PULSE 58; PULSE 59; PULSE 61; RESP 18; TEMP 97.6; O2SAT 96
[2023-11-06] MEDS: lisinopriL 20 MG TAB PO SCH (09:00)
[2023-11-06] MEDS: ASPIRIN 81 MG TAB.CHEW PO SCH (09:00)
[2023-11-06] MEDS: DOCUSATE SODIUM 100 MG GELCAP PO SCH (09:00)
[2023-11-06] MEDS ORDERED: hydrALAZINE 20 MG/ML VIAL IVP PRN (10:40)
[2023-11-06] MEDS: PANTOPRAZOLE 40 MG INJ VIAL IVP SCH (11:00)
[2023-11-06 12:00] VITALS: BP 156/97; PULSE 61; RESP 18; TEMP 97.6; O2SAT 96
[2023-11-06] MEDS ORDERED: IBUP-1842 PO (12:21)
[2023-11-06 14:52] VITALS: BP 156/97; PULSE 61; RESP 18; TEMP 97.6
== END 2023-11-06 15:45 | disposition home or self-care (01) | DRG 391 ==
LOC: MED 10:49 → MMU 13:35 → MTU 14:04
PROVIDERS: ADMIT Student in an Organized Health Care Education/Training Program; ATTEND Student in an Organized Health Care Education/Training Program
DX: K52.9 Noninfective gastroenteritis and colitis, unspecified (principal); K85.90 Acute pancreatitis without necrosis or infection, unspecified; N17.9 Acute kidney failure, unspecified; E86.0 Dehydration; I10 Essential (primary) hypertension; E11.9 Type 2 diabetes mellitus without complications; Z79.2 Long term (current) use of antibiotics; Z79.82 Long term (current) use of aspirin; Z79.84 Long term (current) use of oral hypoglycemic drugs; Z79.899 Other long term (current) drug therapy
CPT/HCPCS: 36415; 80048; 80053; 80076; 81001; 82150; 82948; 83036; 83690; 85025; 87081; C9113; J2270; J2405

== ENCOUNTER 2023-12-19 02:15 | Emergency (ER) | payer SELFPAY ==
[~2023-12-19] VITALS: Ht 163.8 cm; Wt 103.4 kg
[~2023-12-19 02:15] MED LIST changes: -CEPH-588 PO; +IBUP-1842 PO; -IBUP-2213 PO; -NAPR-1704 PO; +NAPR-337 PO; -NAPR-54 PO; -NITR100C7 PO
[2023-12-19 02:33] VITALS: BP 132/98; PULSE 116; RESP 18; TEMP 98.8; O2SAT 94
[2023-12-19] MEDS: KETOROLAC 60 MG/2 ML VIAL IM ONE (03:07)
[2023-12-19 03:14] LABS: APPEARANCE,URINE CLEAR (CLEAR); BASOPHILS # (AUTO) 0.1 K/uL (0.00-0.22); BASOPHILS % (AUTO) 1.1 % (0.0-2.0); BILIRUBIN,URINE NEGATIVE (NEGATIVE); BLOOD, URINE 2+ (NEGATIVE); COLOR,URINE YELLOW (YELLOW); EOSINOPHILS # (AUTO) 0.2 K/uL (0-0.4); EOSINOPHILS % (AUTO) 4.1 % (0.0-4.0); HEMATOCRIT 43.1 % (36-52); HEMOGLOBIN 15.1 g/dL (12.0-18.0); LEUKOCYTE ESTERASE ,URINE NEGATIVE (NEGATIVE); LYMPHOCYTES % (AUTO) 33.5 % (20.5-51.1); MEAN CORPUSCULAR HEMOGLOBIN 31 pg (27-31); MEAN CORPUSCULAR HGB CONC 35 g/dL (33-37); MONOCYTES # (AUTO) 0.4 K/uL (0.8-1.0); MONOCYTES % (AUTO) 6.3 % (1.7-9.3); NEUTROPHILS # (AUTO) 3.2 K/uL (1.8-7.7); NITRITE, URINE NEGATIVE (NEGATIVE); PLATELET COUNT (AUTO) 213 K/uL (140-450); PROTEIN,URINE 3+ (NEGATIVE); RED BLOOD CELL COUNT(AUTO) 4.84 MIL/uL (4.20-6.10); UGLUCOSE NEGATIVE (NEGATIVE); UROBILINOGEN,URINE 0.2 EU/dL (0.2 - 1); WHITE BLOOD COUNT (AUTO) 5.8 K/uL (4.8-10.8)
[2023-12-19 03:21] LABS: RBC,URINE 0-5 /HPF (0-5); WBC,URINE 0-5 /HPF (0-5)
[2023-12-19 03:22] LABS: BACTERIA,URINE 10-30 (MOD) /HPF (None Seen); MUCUS,URINE 1+ /LPF (None Seen); SQUAMOUS EPITHELIAL CELL,UR 0-3 (FEW) /LPF (0-3 (FEW))
[2023-12-19 03:24] LABS: CALCIUM 8.1 mg/dL (8.5-10.1); CARBON DIOXIDE 20.7 mmol/L (21-32); CREATININE 2.7 mg/dL (0.6-1.3); POTASSIUM 3.7 mmol/L (3.5-5.1)
[2023-12-19 03:36] LABS: ALANINE AMINOTRANSFERASE 22 U/L (12-78); ALBUMIN 2.9 g/dL (3.4-5.0); ALKALINE PHOSPHATASE 123 U/L (50-136); ASPARTATE AMINOTRANSFERASE 7 U/L (15-37); BILIRUBIN,DIRECT 0.1 mg/dL (0.0-0.3); LIPASE 46 U/L (16-77); TOTAL BILIRUBIN 0.4 mg/dL (0.0-1.0); TOTAL PROTEIN, SERUM 6.3 g/dL (6.4-8.2)
[2023-12-19 05:02] VITALS: BP 130/92; PULSE 108; RESP 18; TEMP 98; O2SAT 94
== END 2023-12-19 05:02 | disposition home or self-care (01) ==
LOC: MED 02:15
DX: R10.11 Right upper quadrant pain (principal); E11.9 Type 2 diabetes mellitus without complications; I10 Essential (primary) hypertension; Z79.899 Other long term (current) drug therapy; Z79.82 Long term (current) use of aspirin
CPT/HCPCS: 36415; 76705; 80048; 80076; 81001; 83690; 84484; 85025; 93005; 96372; 99285; J1885; Q0092

== ENCOUNTER 2024-01-22 00:40 | Emergency (ER) | payer MEDICAID ==
[~2024-01-22] VITALS: Ht 170.2 cm; Wt 101.2 kg
[2024-01-22 00:48] VITALS: BP 150/106; PULSE 102; RESP 16; TEMP 97.4; O2SAT 96
[2024-01-22] MEDS: KETOROLAC 60 MG/2 ML VIAL IM ONE (02:49)
[2024-01-22] MEDS ORDERED: NAPR-337 PO (03:36)
[2024-01-22 03:43] VITALS: BP 150/106; PULSE 102; RESP 16; TEMP 97.4; O2SAT 96
== END 2024-01-22 03:43 | disposition home or self-care (01) ==
LOC: MED 00:40
DX: S23.3XXA Sprain of ligaments of thoracic spine, initial encounter (principal); E11.9 Type 2 diabetes mellitus without complications; I10 Essential (primary) hypertension; Z79.4 Long term (current) use of insulin; Z79.899 Other long term (current) drug therapy; X58.XXXA Exposure to other specified factors, initial encounter; Y93.89 Activity, other specified; Y92.89 Other specified places as the place of occurrence of the external cause; Y99.8 Other external cause status
CPT/HCPCS: 96372; 99283; J1885

== ENCOUNTER 2024-02-13 17:40 | Emergency (ER) | payer MEDICAID ==
[~2024-02-13] VITALS: Ht 170.2 cm; Wt 102.1 kg
[2024-02-13 17:53] VITALS: BP 147/105; PULSE 85; RESP 18; TEMP 97.5; O2SAT 95
[2024-02-13] MEDS: TETRACAINE HCL/PF 0.5% OPTH 4 ML BTL OP ONE (18:13)
[2024-02-13] MEDS: FLUORESCEIN OPTH STRIP 1 MG OP ONE (18:14)
[2024-02-13] MEDS ORDERED: TOMOMETER 1 DEV DEV MC ONE (18:29)
[2024-02-13] MEDS ORDERED: ACET-10509 PO (18:47)
[2024-02-13] MEDS ORDERED: POLY30DR2 OP (18:48)
== END 2024-02-13 18:55 | disposition home or self-care (01) ==
LOC: MED 17:40
DX: H53.9 Unspecified visual disturbance (principal); H43.392 Other vitreous opacities, left eye; E11.9 Type 2 diabetes mellitus without complications; I10 Essential (primary) hypertension; Z79.899 Other long term (current) drug therapy; Z79.82 Long term (current) use of aspirin
CPT/HCPCS: 99284